=== PATIENT | male | born 1965 ===

== ENCOUNTER 2020-02-22 08:56 | Outpatient (REF) | payer MEDICAID, SELFPAY ==
--- NOTE | 2020-02-22 08:58 | CT_ITS ---
EXAMINATION: CT CHEST WITHOUT CONTRAST CLINICAL INFORMATION: Abnormal chest findings. COMPARISON: CT chest 08/22/2018 TECHNIQUE: Multidetector volumetric CT imaging of the chest was done. Axial MIP volume rendering provided. Sagittal and coronal reformatted images were obtained. This CT examination was performed using dose optimization techniques as appropriate, variously including the following: *Automated exposure control *Adjustment of mA and/or kV according to patient size (this includes techniques or standardized protocols for targeted exams where dose is matched to indication/reason for exam; i.e. extremities or head) *Use of iterative reconstruction technique DLP: 1005 mGy-cm FINDINGS: FABRIC STRETCHER: Well-inflated lungs are clear. LUNGS: There is paraseptal and minimal centrilobular emphysema. There is mild peripheral reticulation and minimal anterior lobular septal thickening in both upper and lower lobes. These findings also prominent along the right major fissure in the right upper lobe. No consolidation or airspace disease seen. A 1 mm calcified nodule right upper lobe axial image 33/21, 2 mm intrafissural lymph node axial image 26/15, 2 mm subpleural nodule right lower lobe image 218/17, 4 mm nodule right lower lobe axial image 257/17, 2 mm nodule along the right major fissure in the subpleural location axial image 213/17. Minimal bronchial wall thickening without bronchiectasis consistent with small airway disease is noted. MEDIASTINUM: The thyroid lobes are symmetrical and normal. The central trachea and bronchi are widely patent. There are reactionary lymph nodes in the mediastinum, the largest pretracheal lymph node measuring 9 mm on axial image 21/8. PLEURA: There is no pleural effusion. No pleural mass or thickening. AXILLA: There are small shotty bilateral axillary lymph nodes. UPPER ABDOMEN: Visualized liver, spleen, gallbladder, pancreas, and adrenal glands are unremarkable. OSSEOUS STRUCTURES: No lytic or sclerotic process seen. CT/CT chest wo con IMPRESSION: Mild paraseptal and minimal centrilobular emphysema. Small pulmonary nodules are stable. No new pulmonary nodules visualized. Shotty bilateral mediastinal lymph nodes are stable.
--- NOTE | 2020-02-22 09:00 | CT_ITS ---
EXAMINATION: CT HEAD WITHOUT CONTRAST CLINICAL INFORMATION: Hallucinations COMPARISON: None TECHNIQUE: Contiguous axial imaging was performed from the skull base to vertex without intravenous administration of contrast. This CT examination was performed using dose optimization techniques as appropriate, variously including the following: *Automated exposure control *Adjustment of mA and/or kV according to patient size (this includes techniques or standardized protocols for targeted exams where dose is matched to indication/reason for exam; i.e. extremities or head) *Use of iterative reconstruction technique DLP: 1005 mGy-cm FINDINGS: There is no evidence of acute intracranial hemorrhage or territorial infarction. No abnormal mass effect or midline shift is seen. Farrell to white matter differentiation is well preserved. No extra-axial fluid collections are identified. The ventricles are normal in size. There is no abnormal attenuation within the brain parenchyma. The osseous structures and soft tissues are normal. The mastoid air cells and visualized portions of the paranasal sinuses are well aerated. CT/CT head/brain wo con IMPRESSION: No acute intracranial process seen.
== END 2020-02-22 08:57 | disposition home or self-care (01) ==
LOC: HO.CT 08:56
PROVIDERS: PCP Family Medicine; Visit Provider Family Medicine
DX: R44.2 Other hallucinations (principal)
CPT/HCPCS: 70450; 71250

== ENCOUNTER 2020-04-07 09:40 | Outpatient (REF) | payer MEDICAID, SELFPAY ==
--- NOTE | 2020-04-07 09:44 | EMG_ITS ---
Right tibial and peroneal motor studies were performed. Right superficial peroneal and sural sensory studies were performed. Tibial H-reflex was obtained. Paraspinal muscles were tested. IMPRESSION: This study revealed mild right superficial peroneal sensory neuropathy, but no evidence of generalized peripheral neuropathy or radiculopathy. MD PAXTON Marie/OSCAR / [id number]
== END 2020-04-07 09:41 | disposition home or self-care (01) ==
LOC: HO.NEURO 09:40
PROVIDERS: Visit Provider Family Medicine
DX: R20.2 Paresthesia of skin (principal)
CPT/HCPCS: 95886; 95909

== ENCOUNTER 2020-06-08 14:02 | Emergency (ER) | payer MEDICAID, SELFPAY ==
[2020-06-08 14:59] VITALS: BP 134/88; PULSE 78; RESP 18; TEMP 36.7; O2SAT 97; BMI 32.8
== END 2020-06-08 20:56 | disposition left against medical advice (07) ==
PROVIDERS: Emergency Provider Emergency Medicine; PCP Family Medicine
DX: R10.9 Unspecified abdominal pain (principal); F11.10 Opioid abuse, uncomplicated
CPT/HCPCS: 99282

== ENCOUNTER 2020-07-11 11:48 | Outpatient (RCR) | payer MEDICAID, SELFPAY | END 2020-07-25 17:47 | disposition other institution (70) | LOC: HO.PT 11:48 | PROVIDERS: PCP Family Medicine; Visit Provider Family Medicine | DX: G47.30 Sleep apnea, unspecified (principal) | CPT/HCPCS: 97110; 97162 ==

== ENCOUNTER 2020-08-09 11:44 | Emergency (ER) | payer MEDICAID, SELFPAY ==
--- NOTE | ~2020-08-09 | CT_ITS ---
EXAMINATION: CT ABDOMEN AND PELVIS WITH CONTRAST CLINICAL INFORMATION: Right lower quadrant pain. Evaluate for appendicitis. COMPARISON: None TECHNIQUE: Multidetector volumetric images were obtained from the superior aspect of the liver through the pubic symphysis following administration 85 mL of Omnipaque 350 intravenous contrast. Sagittal and coronal reformatted images were obtained on the technologist's workstation. Oral contrast: No This CT examination was performed using dose optimization techniques as appropriate, variously including the following: *Automated exposure control *Adjustment of mA and/or kV according to patient size (this includes techniques or standardized protocols for targeted exams where dose is matched to indication/reason for exam; i.e. extremities or head) *Use of iterative reconstruction technique DLP: 677 mGy-cm FINDINGS: LUNG BASES: The lung bases are clear. The heart size is normal. LIVER, GALLBLADDER, AND BILIARY TREE: The liver is normal in size, shape, and attenuation. No focal hepatic lesion. There is mild intrahepatic ductal dilation. CBD measures 1.23 cm with no radiopaque calculi or obstructive etiology seen.. The gallbladder is unremarkable with no evidence of radiopaque gallstones, gallbladder wall thickening, or obvious pericholecystic inflammatory changes. PANCREAS: Unremarkable. SPLEEN: Unremarkable. ADRENAL GLANDS: Unremarkable. KIDNEYS AND URETERS: The kidneys are normal in size, shape, and attenuation. No hydronephrosis, hydroureter, or calculi seen. No perinephric stranding. BLADDER: Unremarkable. GASTROINTESTINAL TRACT: There is scattered colonic diverticulosis with diffuse mural thickening involving the sigmoid colon and mild pericolic fat stranding suggestive of diverticulitis. No air-fluid collection or free air seen to suspect any abscess or perforation respectively. There is scattered stool in the right colon. No colonic distention seen. The small bowel loops are normal caliber. Appendix is not seen with certainty the stomach is nondistended and appears unremarkable. ABDOMINAL WALL: No significant hernia is appreciated. LYMPH NODES: Normal. VASCULAR: Unremarkable. PELVIC VISCERA: Unremarkable. OSSEOUS STRUCTURES: There are degenerative disc changes with vacuum disc phenomena and spondylosis throughout the lower dorsal and entire lumbar spine. No fracture or lytic process seen CT/CT abdomen pelvis w con IMPRESSION: Scattered colonic diverticulosis with sigmoid diverticulitis. Mild constipation. Appendix is not visualized. Mild intrahepatic ductal dilatation with mildly prominent CBD. No obstructive etiology seen.
[2020-08-09 11:56] VITALS: BP 144/81; PULSE 96; RESP 16; TEMP 36.6; O2SAT 95; BMI 32.8
--- NOTE | 2020-08-09 13:06 | ED_ITS ---
HPI - Abdominal Pain General Chief Complaint: Abdominal Pain Stated Complaint: Abd pain Time Seen by Provider: 08/09/20 12:54 Source: patient Mode of arrival: ambulatory Limitations: no limitations History of Present Illness HPI narrative: 54 y/o male with history of substance abuse on Suboxone for many years, depression and insomnia who presents to the ER with RLQ pain that started yesterday. He states he has had intermittent abdominal pain in his right abdomen on/off for years but the pain today is different. It is about a 6/10 and is sharp and constant. He denied fever, chills, N/V/D. Last BM was this morning and it was difficult. He reports chronic issues with constipation. No blood in his stool. No dietary changes. MD elicited complaint: abdominal pain Pertinent past history: none Onset (ago): day(s) (1) Pain Consistency: constant Location: RLQ Severity: moderate Pain scale (0-10): 6 Quality: stabbing Radiation: none Migration to: no migration Exacerbating factors: nothing Relieving factors: nothing Associated symptoms: constipation Related Data Previous Rx's Medication Instructions Recorded ciprofloxacin HCl 500 mg PO BID #14 tab 08/09/20 ibuprofen 600 mg PO Q8H PRN #15 tab 08/09/20 metronidazole [Flagyl] 500 mg PO BID #14 tab 08/09/20 Allergies Allergy/AdvReac Type Severity Reaction Status Date / Time No Known Allergies Allergy Verified 08/09/20 11:56 [No Known Allergies*] Review of Systems Review of Systems Constitutional: No Fever, No Chills ENT/Mouth: No sore throat, No Rhinorrhea, No Swallowing Difficulty Cardiovascular: No Chest Pain, No SOB, No Orthopnea, No Edema Respiratory: No Cough, No Sputum, No Wheezing, No dyspnea Gastrointestinal: No Nausea, No Vomiting, No Diarrhea, + abdominal Pain, No Hematochezia, No Melena Genitourinary: No Dysuria, No Urinary Frequency, No Hematuria Musculoskeletal: No joint pain, No Myalgias Skin: No Skin Lesions, No rash Neuro: No Weakness, No Numbness, No Dizziness, No Headache Heme/Lymph: No Bruising, No Lymphadenopathy Endocrine: No Polyuria, No Polydipsia Physical Exam Vital Signs: Vital Signs: Last Vital Signs Temp 97.9 F 08/09/20 11:56 Pulse 84 08/09/20 14:00 Resp 16 08/09/20 14:00 BP 102/64 08/09/20 14:00 Pulse Ox 97 08/09/20 14:00 Body Mass Index 32.8 Appearance: Alert. Oriented X3. No acute distress. Eyes: Pupils equal, round and reactive to light. ENT: Pharynx normal. Neck: Normal inspection. Neck supple. CVS: Normal heart rate and rhythm. Pulses normal. Respiratory: No respiratory distress. Breath sounds normal. Abdomen: Somewhat firm with guarding, RLQ tenderness to deep palpation, no rebound. +BS x4 Skin: Skin warm and dry. Normal skin color. Normal skin turgor. No rashes. Extremities: No lower extremity edema. Neuro: Oriented X 3. No motor deficit. No sensory deficit. Course Course Course Narrative: 54 y/o male presenting with RLQ pain x1 day. Will get lab workup and CT scan to r/o appendicitis. Reevaluation(s) Reevaluation #1: Labs showing mild hyperkalemia 5.4 and sodium 134. NS ordered. CT scan complete. Patient's pain is ok 4/10. Declining medications. Reevaluation #2: CT showing sigmoid diverticulitis without abscess. No leukocytosis. Patient is tolerating PO. Results were d/w the patient. Will treat with PO antibiotics, NSAIDS and have him f/u with GI and his PCP. He agrees [facility] plan and is stable for discharge home. Instructed to come back to the ER if pain worsens or if he develops severe N/V/D. MDM - Abdominal Pain Lab Data Result diagrams: 08/09/20 13:18 08/09/20 13:18 Labs: Lab Results 08/09/20 08/09/20 08/09/20 Range/Units 13:18 13:18 13:18 WBC 10.0 (4.8-10.8) X10*3/uL RBC 4.98 (4.60-5.80) X10*6/uL Hgb 14.5 (14.0-18.0) g/dl Hct 43.1 (42-52) % MCV 86.5 (80-98) fL MCH 29.1 (27.0-33.0) pg MCHC 33.6 (31.0-36.0) g/dl RDW 12.0 (11.0-16.0) % Plt Count 308 (160-400) X10*3/uL MPV 9.5 (9.4-12.4) fL Immature Gran % (Auto) 0.2 (0.0-0.4) % Neut % (Auto) 74.1 H (45-73) % Lymph % (Auto) 20.0 (20-40) % [place] % (Auto) 4.5 (2-11) % Eos % (Auto) 0.8 (0-4) % Baso % (Auto) 0.4 (0-2) % Lymph # (Auto) 2.0 (1.2-4.9) X10*3/uL [place] # (Auto) 0.5 (0.1-1.2) X10*3/uL Eos # (Auto) 0.1 (0.0-0.4) X10*3/uL Baso # (Auto) 0.0 (0.0-0.2) X10*3/uL Abs Immat Gran (auto) 0.02 (0.00-0.03) X10*3/uL Absolute Neuts (auto) 7.4 (2.0-8.3) X10*3/uL Absolute Nucleated RBC 0.000 (0.0-0.012) X10*3/uL Nucleated RBC % (auto) 0.0 (0.0-0.2) /100WBC Hold Blue Top SEE NOTE Sodium 134 L (135-145) mmol/L Potassium 5.4 H (3.3-5.1) mmol/L Chloride 102 (96-108) mmol/L Carbon Dioxide 24 (22-29) mmol/L Anion Gap 13 (12-20) BUN 12 (9-16) mg/dL Creatinine 0.76 (0.5-1.4) mg/dL Estim Creat Clear Calc 122.2 Estimated GFR > 60 Random Glucose 110 (60-115) mg/dL Calcium 9.1 (8.4-10.2) mg/dL Total Bilirubin 0.4 (0.0-1.0) mg/dL AST 27 (5-37) U/L ALT 18 (0-40) U/L Alkaline Phosphatase 93 (39-117) U/L Total Protein 7.8 (6.5-8.0) g/dL Albumin 3.9 (3.5-5.0) g/dL Urine Color Urine Appearance Urine pH (5.0-8.0) Ur Specific [place] (1.005-1.025) Urine Protein (NEG-TRACE) MG/DL Urine Glucose (UA) (NEG) MG/DL Urine Ketones (NEG) MG/DL Urine Blood (NEG) Urine Nitrite (NEG) Ur Leukocyte Esterase (NEG) Urine RBC (0) /HPF Urine WBC (0-4) /HPF Ur Squamous Epith Cells /LPF Urine Bacteria /LPF Urine Mucus /LPF 08/09/20 Range/Units 14:13 WBC (4.8-10.8) X10*3/uL RBC (4.60-5.80) X10*6/uL Hgb (14.0-18.0) g/dl Hct (42-52) % MCV (80-98) fL MCH (27.0-33.0) pg MCHC (31.0-36.0) g/dl RDW (11.0-16.0) % Plt Count (160-400) X10*3/uL MPV (9.4-12.4) fL Immature Gran % (Auto) (0.0-0.4) % Neut % (Auto) (45-73) % Lymph % (Auto) (20-40) % [place] % (Auto) (2-11) % Eos % (Auto) (0-4) % Baso % (Auto) (0-2) % Lymph # (Auto) (1.2-4.9) X10*3/uL [place] # (Auto) (0.1-1.2) X10*3/uL Eos # (Auto) (0.0-0.4) X10*3/uL Baso # (Auto) (0.0-0.2) X10*3/uL Abs Immat Gran (auto) (0.00-0.03) X10*3/uL Absolute Neuts (auto) (2.0-8.3) X10*3/uL Absolute Nucleated RBC (0.0-0.012) X10*3/uL Nucleated RBC % (auto) (0.0-0.2) /100WBC Hold Blue Top Sodium (135-145) mmol/L Potassium (3.3-5.1) mmol/L Chloride (96-108) mmol/L Carbon Dioxide (22-29) mmol/L Anion Gap (12-20) BUN (9-16) mg/dL Creatinine (0.5-1.4) mg/dL Estim Creat Clear Calc Estimated GFR Random Glucose (60-115) mg/dL Calcium (8.4-10.2) mg/dL Total Bilirubin (0.0-1.0) mg/dL AST (5-37) U/L ALT (0-40) U/L Alkaline Phosphatase (39-117) U/L Total Protein (6.5-8.0) g/dL Albumin (3.5-5.0) g/dL Urine Color YELLOW Urine Appearance CLEAR Urine pH 6.0 (5.0-8.0) Ur Specific [place] 1.015 (1.005-1.025) Urine Protein NEG (NEG-TRACE) MG/DL Urine Glucose (UA) NEG (NEG) MG/DL Urine Ketones NEG (NEG) MG/DL Urine Blood TRACE (NEG) Urine Nitrite NEG (NEG) Ur Leukocyte Esterase NEG (NEG) Urine RBC 1-4 (0) /HPF Urine WBC 0 (0-4) /HPF Ur Squamous Epith Cells NONE /LPF Urine Bacteria NONE /LPF Urine Mucus TRACE /LPF Discharge Plan Discharge Clinical Impression: Diverticulitis Patient Disposition: Home, Self-Care Instructions: Diverticulitis (ED), Diverticulitis Diet (ED) Additional Instructions: Take the prescribed antibiotics for infection in your colon. Recommend following up with GI doctor and your Primary Care doctor. If you have worsening pain, profuse vomiting or diarrhea come back to the ER right away for further evaluation. Prescriptions: New ciprofloxacin HCl 500 mg tablet 500 mg PO BID Qty: 14 RF: 0 metronidazole [Flagyl] 500 mg tablet 500 mg PO BID Qty: 14 RF: 0 ibuprofen 600 mg tablet 600 mg PO Q8H PRN (Reason: pain) Qty: 15 RF: 0 Referrals: Victor Manuel Galvez MD [Physician] - 2 weeks (diverticulitis) [facility] Past Medical History Attestation statement: The following information was validated with the patient. Medical History Anxiety Opiate abuse, continuous Social History Social History Alcohol intake: never Patient Tobacco Use Status: Never used Tobacco Use of substances other than those prescribed or required for medical reasons: No Advance Directives: No Advance Directives Information Provided: No
[2020-08-09 13:26] LABS: MANUAL DIFF FLAG NO
[2020-08-09 13:30] LABS: Basophils Percent Auto 0.4 % (0-2); Eosinophils Absolute Auto 0.1 X10*3/uL (0.0-0.4); Eosinophils Percent Auto 0.8 % (0-4); Hematocrit 43.1 % (42-52); Hemoglobin 14.5 g/dl (14.0-18.0); Imm Gran Abs Auto 0.02 X10*3/uL (0.00-0.03); Imm Gran Pct Auto 0.2 % (0.0-0.4); Mean Corpuscular HGB Conc 33.6 g/dl (31.0-36.0); Mean Corpuscular Hemoglobin 29.1 pg (27.0-33.0); Mean Corpuscular Volume 86.5 fL (80-98); Mean Platelet Volume 9.5 fL (9.4-12.4); Monocytes Absolute Auto 0.5 X10*3/uL (0.1-1.2); Monocytes Percent Auto 4.5 % (2-11); Neutrophils Absolute Auto 7.4 X10*3/uL (2.0-8.3); Neutrophils Percent Auto 74.1 % (45-73); Platelet Count 308 X10*3/uL (160-400); Red Blood Count 4.98 X10*6/uL (4.60-5.80)
[2020-08-09 14:00] VITALS: BP 102/64; PULSE 84; RESP 16; O2SAT 97
[2020-08-09 14:01] LABS: Alanine Aminotransferase 18 U/L (0-40); Albumin Level 3.9 g/dL (3.5-5.0); Alkaline Phosphatase 93 U/L (39-117); Anion Gap 13 (12-20); Aspartate Amino Transferase 27 U/L (5-37); Bilirubin Total 0.4 mg/dL (0.0-1.0); Blood Urea Nitrogen 12 mg/dL (9-16); Calcium 9.1 mg/dL (8.4-10.2); Carbon Dioxide 24 mmol/L (22-29); Chloride 102 mmol/L (96-108); Creatinine Clr Calc Pharmacy 122.2; Estimated Glomerular Filt Rate > 60; Glucose Random 110 mg/dL (60-115); Potassium 5.4 mmol/L (3.3-5.1); Sodium 134 mmol/L (135-145); Total Protein 7.8 g/dL (6.5-8.0)
[2020-08-09 14:19] LABS: Glucose Urine UA NEG (NEG); Leukocyte Esterase Urine NEG (NEG); Nitrite Urine NEG (NEG); Specific Gravity - Urine 1.015 (1.005-1.025); Urine Blood TRACE (NEG); Urine Ketones NEG (NEG); Urine Protein NEG (NEG-TRACE)
[2020-08-09 14:20] LABS: Appearance Urine CLEAR; Color Urine YELLOW
[2020-08-09] MEDS: 0.9 % Sodium Chloride 1,000 ML 999 ML IVCONT (14:34)
[2020-08-09 14:35] LABS: Mucus Urine TRACE /LPF; WBC Urine 0 /HPF (0-4)
[2020-08-09] MEDS: iohexoL 350 MG/ML 100 ML INFUS..BTL IV (14:44)
== END 2020-08-09 15:43 | disposition home or self-care (01) ==
PROVIDERS: Emergency Provider Emergency Medicine; PCP Family Medicine
DX: K57.32 Diverticulitis of large intestine without perforation or abscess without bleeding (principal); K59.00 Constipation, unspecified; R10.9 Unspecified abdominal pain; F33.1 Major depressive disorder, recurrent, moderate; Z79.899 Other long term (current) drug therapy
CPT/HCPCS: 36415; 74177; 80053; 81001; 85025; 99285; Q9967

== ENCOUNTER 2020-10-20 08:27 | Outpatient (REF) | payer MEDICAID, SELFPAY ==
--- NOTE | ~2020-10-20 | US_ITS ---
EXAMINATION: US ABDOMEN COMPLETE CLINICAL INFORMATION: Fatty liver. COMPARISON: CT abdomen and pelvis with contrast dated 08/09/2020 TECHNIQUE: Real-time imaging of the abdominal viscera. FINDINGS: PANCREAS: The head and the body of the pancreas appear homogeneous in echotexture. The tail is not visualized. The pancreatic duct is mildly prominent measuring 0.5 cm. ABDOMINAL AORTA: The proximal, mid, and distal segments are normal in caliber. INFERIOR VENA CAVA: Visualized portions are normal. LIVER: The liver is normal in size. The liver contour is normal. There is increased liver echogenicity. There is a focal area of fatty sparing posterior to the gallbladder. No focal hepatic lesion. There is no intrahepatic biliary duct dilatation seen. GALLBLADDER: Normal. The gallbladder is physiologically distended without evidence of stones, sludge, polyps, wall thickening, or pericholecystic fluid. COMMON BILE DUCT: Normal in caliber measuring 1.0 cm in diameter. RIGHT KIDNEY: Normal. No hydronephrosis. No renal calculi or focal parenchymal lesions. The kidney measures 11.4 cm in maximum dimension. LEFT KIDNEY: The left kidney is slightly lobulated laterally. No hydronephrosis. No renal calculi or focal parenchymal lesions. The kidney measures 12.1 cm in maximum dimension. SPLEEN: Normal. The spleen measures 10.4 cm in maximum dimension. FREE FLUID: None. US/US abdomen complete IMPRESSION: Hepatic steatosis with focal fatty sparing posterior to the gallbladder. Mild prominence of pancreatic duct but visualized pancreas appears unremarkable. The tail is not visualized. The left kidney is lobulated laterally.
== END 2020-10-20 08:28 | disposition home or self-care (01) ==
LOC: HO.US 08:27
PROVIDERS: PCP Family Medicine; Visit Provider Family Medicine
DX: K76.0 Fatty (change of) liver, not elsewhere classified (principal)
CPT/HCPCS: 76700

== ENCOUNTER → 2020-12-20 14:31 | Outpatient (BNVA) | payer MEDICAID, SELFPAY | PROVIDERS: PCP Family Medicine; Visit Provider Internal Medicine | DX: J44.9 Chronic obstructive pulmonary disease, unspecified (principal); R59.0 Localized enlarged lymph nodes; F17.200 Nicotine dependence, unspecified, uncomplicated | CPT/HCPCS: 99202 ==

== ENCOUNTER → 2021-04-11 12:51 | Outpatient (BNVA) | payer MEDICAID, SELFPAY | PROVIDERS: PCP Family Medicine; Referring Provider Family Medicine; Visit Provider Surgery | DX: K83.8 Other specified diseases of biliary tract (principal); R10.11 Right upper quadrant pain | CPT/HCPCS: 99202 ==

== ENCOUNTER 2021-04-13 | Outpatient (REF) | payer MEDICAID, SELFPAY | END 2021-04-13 00:01 | LOC: CF | PROVIDERS: PCP Family Medicine; Visit Provider Surgery Vascular Surgery | DX: I83.11 Varicose veins of right lower extremity with inflammation (principal) | CPT/HCPCS: 99202 ==

== ENCOUNTER 2021-04-17 10:28 | Outpatient (REF) | payer MEDICAID, SELFPAY ==
--- NOTE | ~2021-04-17 | US_ITS ---
EXAMINATION: US LOWER EXTREMITY VENOUS (REFLUX EXAM), BILATERAL CLINICAL INDICATION: This is a 55-year-old male with venous insufficiency and varicose veins. COMPARISON: None. TECHNIQUE: Color flow triplex imaging and compression Doppler was performed to evaluate both the deep and the superficial systems bilaterally. To evaluate the superficial system, the examination was performed in the upright position. Color-flow Doppler ultrasound and compression ultrasound were utilized. In addition, maneuvers were utilized to demonstrate reflux. FINDINGS: 1. DEEP VENOUS ULTRASOUND OF THE RIGHT LOWER EXTREMITY: Common Femoral Vein: Compressible, normal respiratory variation and augmented flow. Femoral vein: Compressible, normal color flow and augmentation. Popliteal Vein: Compressible, normal augmentation. Deep Reflux: There is no evidence of reflux in the deep system in either the common femoral vein or the popliteal vein. There is no evidence of a Wagoner's cyst. 2. SUPERFICIAL ULTRASOUND WITH DOPPLER OF RIGHT LOWER EXTREMITY: GREAT SAPHENOUS VEIN: Saphenofemoral Junction: 0.8 cm Mid Thigh: 0.1 cm Above Knee: 0.1 cm Below Knee: 0.1 cm Mid Calf: 0.1 cm Ankle: 0.1 cm GSV REFLUX: No evidence of reflux. DUPLICATED GREAT SAPHENOUS VEIN: There is a 0.3 cm duplicated lateral great saphenous vein without reflux. SMALL SAPHENOUS VEIN: Proximal: 0.2 cm Distal: 0.1 cm SSV REFLUX: No evidence of reflux. VEIN OF GIACOMINI: None Imaged. PERFORATORS: There is a 0.1 cm brass cutter at the knee without reflux. VARICOSITIES: None Imaged 3. DEEP VENOUS ULTRASOUND OF THE LEFT LOWER EXTREMITY: Common Femoral Vein: Compressible, normal respiratory variation and augmented flow. Femoral Vein: Compressible, normal color flow and augmentation. Popliteal Vein: Compressible, normal augmentation. Deep Reflux: There is no evidence of reflux in the deep system in either the common femoral vein or the popliteal vein. There is no evidence of a Wagoner's cyst. 4. SUPERFICIAL ULTRASOUND WITH DOPPLER OF LEFT LOWER EXTREMITY: GREAT SAPHENOUS VEIN: Saphenofemoral Junction: 0.3 cm Mid Thigh: 0.1 cm Above Knee: 0.1 cm Below Knee: 0.1 cm Mid Calf: 0.1 cm Ankle: 0.1 cm GSV REFLUX: No evidence of reflux. DUPLICATED GREAT SAPHENOUS VEIN: There is a 0.2 cm duplicated lateral great saphenous vein without reflux. SMALL SAPHENOUS VEIN: Proximal: 0.1 cm Distal: 0.1 cm SSV REFLUX: No evidence of reflux. VEIN OF GIACOMINI: None Imaged. PERFORATORS: There is a 0.1 cm proximal calf brass cutter without reflux. VARICOSITIES: None Imaged US/US venous duplex LE BI IMPRESSION: 1. There are bilateral patent great saphenous veins and small saphenous veins without evidence of venous insufficiency or reflux. 2. No varicose veins are seen.
== END 2021-04-17 10:29 | disposition home or self-care (01) ==
LOC: HO.US 10:28
PROVIDERS: Visit Provider Surgery Vascular Surgery
DX: I83.11 Varicose veins of right lower extremity with inflammation (principal)
CPT/HCPCS: 93970

== ENCOUNTER → 2021-06-29 15:22 | Outpatient (BNVA) | payer MEDICAID, SELFPAY | PROVIDERS: PCP Family Medicine; Visit Provider Surgery Vascular Surgery | DX: I83.11 Varicose veins of right lower extremity with inflammation (principal) | CPT/HCPCS: 99212 ==

== ENCOUNTER 2021-10-02 09:30 | Outpatient (REF) | payer MEDICAID, SELFPAY ==
--- NOTE | ~2021-10-02 | CT_ITS ---
EXAMINATION: CT CHEST WITHOUT CONTRAST CT ABDOMEN WITHOUT AND WITH CONTRAST CLINICAL INFORMATION: Follow-up nodules. COMPARISON: CT abdomen and pelvis 10/20/2020. CT chest 02/22/2020. Ultrasound abdomen pelvis 10/27/2020. TECHNIQUE: 3 mm thin axial and reformatted sagittal and axial images of chest were obtained without contrast. Subsequently, 5 mm thin axial images of chest and abdomen were obtained without and with intravenous 85 mL Omnipaque 350. DLP 1393 mGy- This CT examination was performed using dose optimization technique as appropriate, variously including the following: Automated exposure control Adjustment of MA and/or KV according to patient size(this includes techniques or standardized protocols for targeted exams where dose is matched to indication/reason for exam; extremities or head. Use of iterative reconstruction techniques. FINDINGS: LUNGS: There is a centrilobular and preseptal emphysema with peripheral-based reticular interstitial thickening right upper lobe and right lower lobe. There are minimal changes in the left lower lobe as well. No acute consolidation seen. There is a 1 mm peripherally-based calcified nodule right upper lobe axial image 136/11, 2 mm intrafissural lymph node axial image 241/11, previously seen 4 nodule right lower lobe is not visualized. There is a peribronchial wall thickening in bilateral lower lobes. Mediastinum: The thyroid lobes are symmetric and normal. The central trachea and bronchi are widely patent. The heart size and great vessels are normal caliber. There are matted lymph nodes or soft tissue density in the precarinal and pretracheal space best visualized on coronal image 52/12. It is triangular shape measuring 3.5 x 2.9 cm in the coronal image 52/12 and is stable to previous study. Trace coronary artery calcification seen. Pleura: There is no pleural thickening, calcification or effusion. Axilla: There are shotty benign lymph nodes in bilateral axilla. The anterior chest wall is asymmetric with left slightly higher than the right but no focal chest wall lesion seen. Osseous structures: No lytic or sclerotic sclerotic changes seen. ABDOMEN AND PELVIS: Liver, ducts and gallbladder: Liver is homogeneous in density, normal size and contour. No focal lesion seen. There is mild intrahepatic ductal dilatation. The proximal CBD measures 1 cm and distal CBD measures 1.33 cm. The gallbladder is unremarkable with no radiopaque gallstones or wall thickening. Pancreas: The patient is unremarkable. The pancreatic duct measures 3 mm. Spleen: Unremarkable. Lymphovascular structures: The abdominal aorta is normal caliber. No abnormal size retroperitoneal or mesenteric lymph nodes seen. GI tract: There is scattered stool and gas seen in the visualized colon. The small bowel loops are normal. Abdominal wall: There is a small lacunar hernia containing fat. Adrenal glands: Bilateral adrenal glands are symmetrical and normal. Kidneys and ureters: There is symmetrical kidney nephrograms, which are normal size, shape and position. No radiopaque renal calculi or hydronephrosis seen. Osseous structures: There is a degenerative disc changes with vacuum disc phenomena and ventral spondylosis throughout lumbar spine. No lytic or sclerotic process seen. CT/CT abdomen wo/w con IMPRESSION: Centrilobular and paraseptal emphysema with scattered peripheral reticular interstitial changes and small pulmonary nodules are essentially stable. There is no new pulmonary nodules or mass seen. Dilated intrahepatic duct and dilated CBD with no intraluminal filling defect seen in the CBD. Minimal prominence of pancreatic duct measuring 3 mm. Visualized pancreas is unremarkable.
[2021-10-02 12:32] LABS: Anion Gap 11 (12-20); Blood Urea Nitrogen 13 mg/dL (9-16); Carbon Dioxide 28 mmol/L (22-29); Chloride 101 mmol/L (96-108); Estimated Glomerular Filt Rate > 60; Glucose Random 90 mg/dL (60-115); Potassium 4.6 mmol/L (3.3-5.1); Sodium 135 mmol/L (135-145)
[2021-10-02] MEDS: iohexoL 350 MG/ML 100 ML INFUS..BTL IV (14:07)
== END 2021-10-02 09:31 | disposition home or self-care (01) ==
LOC: HO.CT 09:30
PROVIDERS: PCP Family Medicine; Visit Provider Family Medicine
DX: R91.8 Other nonspecific abnormal finding of lung field (principal); Q45.3 Other congenital malformations of pancreas and pancreatic duct
CPT/HCPCS: 36415; 71260; 74170; 80048; Q9967

== ENCOUNTER 2021-10-26 13:00 | Outpatient (REF) | payer MEDICAID, SELFPAY ==
--- NOTE | ~2021-10-26 | US_ITS ---
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 COMPARISON: CT abdomen without and with contrast 10/02/2021. US abdomen complete 10/20/2020. TECHNIQUE: Real-time imaging of the kidneys. FINDINGS: RIGHT KIDNEY: 12.2 x 6.1 x 6.2 cm (SAG x AP x TRV). The kidney is normal in size and echogenicity. Renal cortical thickness is normal. No calculi or focal parenchymal lesions. No hydronephrosis. LEFT KIDNEY: 10.8 x 5.2 x 5.7 cm (SAG x AP x TRV). The kidney is normal in size and echogenicity. Renal cortical thickness is normal. No calculi or focal parenchymal lesions. No hydronephrosis. The liver appears echogenic. US/US renal BI IMPRESSION: Normal renal ultrasound.
== END 2021-10-26 13:01 | disposition home or self-care (01) ==
LOC: HO.US 13:00
PROVIDERS: Visit Provider Family Medicine
DX: Q63.1 Lobulated, fused and horseshoe kidney (principal)
CPT/HCPCS: 76775

== ENCOUNTER → 2021-10-30 10:44 | Outpatient (BNVA) | payer MEDICAID, SELFPAY | PROVIDERS: PCP Family Medicine; Visit Provider Internal Medicine | DX: J44.9 Chronic obstructive pulmonary disease, unspecified (principal); F17.210 Nicotine dependence, cigarettes, uncomplicated | CPT/HCPCS: 99212 ==

== ENCOUNTER 2022-01-06 13:20 | Emergency (ER) | payer MEDICAID, SELFPAY ==
--- NOTE | ~2022-01-06 | CT_ITS ---
EXAMINATION: CT HEAD WITHOUT CONTRAST CLINICAL INFORMATION: Headache COMPARISON: CT head 02/22/2020 TECHNIQUE: Contiguous axial imaging was performed from the skull base to vertex without intravenous administration of contrast. Coronal and sagittal reformatted images are performed at the CT scanner. [This CT examination was performed using dose optimization techniques as appropriate, variously including the following: *Automated exposure control *Adjustment of mA and/or kV according to patient size (this includes techniques or standardized protocols for targeted exams where dose is matched to indication/reason for exam; i.e. extremities or head) *Use of iterative reconstruction technique] DLP: 695 mGy-cm. FINDINGS: There is no evidence of acute intracranial hemorrhage or territorial infarction. No abnormal mass-effect or midline shift is seen. Farrell to white matter differentiation is well preserved. No extra-axial fluid collections are identified. The ventricles are normal in size. There is no abnormal attenuation within the brain parenchyma. There is no osseous abnormality. The mastoid air cells and visualized portions of the paranasal sinuses are well-aerated. CT/CT head/brain wo IV con IMPRESSION: No acute intracranial pathology.
[2022-01-06 13:22] VITALS: BP 111/69; PULSE 90; RESP 18; TEMP 36.6; O2SAT 99; BMI 32.1
--- NOTE | 2022-01-06 15:32 | ED.HA ---
HPI - Headache General Chief Complaint: Headache Stated Complaint: EXTREM HEADACHE FOR WEEK Time Seen by Provider: 01/06/22 15:16 Source: patient Mode of arrival: ambulatory Limitations: no limitations History of Present Illness HPI Narrative: 56 yo with a history of COPD who presents with left-sided headache for the last 5 days. + photophobia. No nausea, vomiting, dizziness. No neck pain, fevers or chills. Taking Tylenol with continued pain. Headache not changed by any position changes Related Data Home Medications Medication Instructions Recorded Confirmed albuterol sulfate 90 mcg/actuation 2 puff inhalation QID 12/20/20 10/30/21 aerosol inhaler (ProAir HFA) buprenorphine 8 mg-naloxone 2 mg 2 film sublingual DAILY 12/20/20 10/30/21 sublingual film (Suboxone) acetaminophen 650 mg 650 mg PO Q8H PRN fever 04/11/21 10/30/21 tablet,extended release (Arthritis Pain Relief (acetaminophen) ER) melatonin 5 mg tablet 10 mg PO BEDTIME PRN insomnia 04/11/21 10/30/21 sildenafil 50 mg tablet (Viagra) 50 mg PO DAILY PRN 04/11/21 10/30/21 valacyclovir 500 mg tablet 500 mg PO BID 04/11/21 10/30/21 cholecalciferol (vitamin D3) 50 50 mcg PO DAILY 10/30/21 10/30/21 mcg (2,000 unit) capsule fluticasone propionate 50 2 spray intranasal DAILY 10/30/21 10/30/21 mcg/actuation nasal spray,suspension loratadine 10 mg tablet 10 mg PO DAILY 10/30/21 10/30/21 Previous Rx's Medication Instructions Recorded ibuprofen 600 mg tablet 600 mg PO Q8H PRN pain #15 tabs 08/09/20 fluticasone 250 mcg-salmeterol 50 1 inh inhalation BID copd 30 days 10/30/21 mcg/dose blistr powdr for #60 ea inhalation (Advair Diskus) Allergies Allergy/AdvReac Type Severity Reaction Status Date / Time No Known Allergies Allergy Verified 10/30/21 12:09 [No Known Allergies*] Review of Systems Review of Systems: Yes all other systems are reviewed and are negative Constitutional: Constitutional: Reports no additional constitutional complaints, Denies body ache(s), Denies chills, Denies fever(s), Reports headache(s) and Denies weakness Eyes: Eyes: Reports no additional eye complaints, Denies change in vision and Reports photophobia ENT: Reports system reviewed and no additional complaints, except as documented, Denies dizziness, Reports headache(s), Denies nasal congestion, Denies nasal discharge and Denies neck pain Cardiovascular: Cardiovascular: Reports no additional cardiovascular complaints, Denies chest pain, Denies leg edema and Denies dyspnea Respiratory: Respiratory: Reports no additional respiratory complaints, Denies cough and Denies dyspnea Gastrointestinal: Gastrointestinal: Reports no additional gastrointestinal complaints, Denies abdominal pain, Denies diarrhea, Denies nausea and Denies vomiting Genitourinary: Genitourinary: Denies urinary incontinence Musculoskeletal: Musculoskeletal: Reports no additional musculoskeletal complaints, Denies back pain, Denies arthralgias, Denies joint swelling, Denies neck pain, Denies numbness and Denies tingling Integumentary/Breasts: Skin/Breast: Reports system reviewed and no additional complaints, except as docu and Denies rash Neurologic: Reports system reviewed and no additional complaints, except as documented, Denies Abnormal speech present, Denies dizziness, Reports headache(s), Denies numbness, Denies tingling and Denies weakness PMFSH Past Medical History Attestation statement: The following information was validated with the patient. Source: old records reviewed and nursing notes reviewed Medical History COPD (chronic obstructive pulmonary disease) Depression with anxiety History of heroin abuse Mediastinal adenopathy Personal history of nicotine dependence Smoker Surgical History History of colonoscopy (~2019) Social History Social History Alcohol intake: never Patient Tobacco Use Status: Current everyday Tobacco user Cigarettes Per Day: 20 Years Smoked: 42 Advance Directives: No Advance Directives Information Provided: Yes Physical Exam Vital Signs: Vital Signs: Last Vital Signs Temp 97.9 F 01/06/22 13:22 Pulse 90 01/06/22 13:22 Resp 18 01/06/22 13:22 BP 111/69 01/06/22 13:22 Pulse Ox 99 01/06/22 13:22 O2 Del Method 01/06/22 13:22 BMI result Body Mass Index 32.1 Const: General: cooperative, healthy appearing, comfortable and no acute distress Orientation/consciousness: patient oriented x3 Limitations: no limitations HEENT: Head: Yes normal to inspection Ears: hearing grossly normal bilaterally and TM's normal bilaterally General nose exam: Normal external nose present Face and sinus: Yes normal facial exam Mouth: Normal oral and palatal mucosa present Throat: Yes posterior oropharynx normal Eyes: General: appearance normal, both eyes and all related structures Pupils: Equal, round and reactive pupils present Direct Ophthalmoscopy: photophobia Neck: Neck: Yes normal visual inspection, Yes full ROM, Yes no lymphadenopathy and Yes no meningeal signs Chest: Chest palpation & inspection: normal inspection of the chest Resp: Effort & Inspection: normal respiratory effort Auscultation: clear to auscultation bilaterally Cardio: Rate: regular rate Rhythm: regular rhythm Peripheral pulses: Peripheral pulses 2+ throughout GI: Inspection: Yes normal to inspection Palpation (GI): Soft to palpation and nontender Auscultation: normal bowel sounds Back/Spine/Pelvis: Thoracic/Lumbar Spine: thoracic and lumbar spine normal to inspection Skin: General skin exam: no rashes or lesions noted Neuro: General: patient oriented x3, moves all extremities, no meningeal signs, no focal motor deficits and normal sensation to monofilament Cranial nerves: Yes CN's II-XII intact bilaterally, Yes Equal, round and reactive pupils present, Yes Bilaterally intact EOM present, Yes Nystagmus not present, Yes Normal facial strength present and Yes Midline tongue present Cognition (Neuro): normal cognition Speech: No Abnormal speech present Gait exam (Neuro): Normal gait present Motor exam (neuro): 5/5 motor strength present throughout Sensory Exam: Normal double simultaneous stimulation for sensation Extrem: General: Yes normal to inspection Course Course Course Narrative: Headache is resolved. CT scan is normal. Likely migraine. Plan for discharge home. Reviewed worrisome signs and symptoms of when to return to the emergency room. Comfortable plan for discharge home. MDM - Headache MDM Narrative Medical decision making narrative: 56-year-old male here with headache for 5 days despite supportive care Normal neuro exam No history of same Due to persistent headache will check CT head Will place IV and give fluids, Reglan, Benadryl, Toradol Considered migraine, subarachnoid hemorrhage, meningitis, pseudotumor cerebral -no fever, neck pain or neck stiffness to suggest meningitis -no worsening headache with position changes to suggest pseudotumor cerebri Medical Records Attestation: I reviewed the patient's medical records. Lab Data Attestation: I reviewed the patient's lab results. Labs: Lab Results 01/06/22 Range/Units 15:49 COVID-19 ([facility]) Negative (Negative) COVID-19 Clin Com See Note Imaging Data CT scan - head: Attestation: I personally reviewed and interpreted this imaging study as follows: Radiologist's impression: Close Head CT (Signed) Raman Hampton - 01/06/22 Launch?Image [address] [address] [address] Scan Report Signed Patient: Montana Rodrigues V MR#: [id number] : 1965 Acct:[id number] Age/Sex: 56 / M ADM Date: 01/06/22 Loc: HO.ED Attending Dr: Ordering Physician: Evelin Ramos NP Date of Service: 01/06/22 Procedure(s): CT head/brain wo IV con Accession Number(s): [id number] cc: Evelin Ramos NP~ EXAMINATION: CT HEAD WITHOUT CONTRAST CLINICAL INFORMATION: Headache COMPARISON: CT head 02/22/2020 TECHNIQUE: Contiguous axial imaging was performed from the skull base to vertex without intravenous administration of contrast. Coronal and sagittal reformatted images are performed at the CT scanner. [This CT examination was performed using dose optimization techniques as appropriate, variously including the following: *Automated exposure control *Adjustment of mA and/or kV according to patient size (this includes techniques or standardized protocols for targeted exams where dose is matched to indication/reason for exam; i.e. extremities or head) *Use of iterative reconstruction technique] DLP: 695 mGy-cm. FINDINGS: There is no evidence of acute intracranial hemorrhage or territorial infarction. No abnormal mass-effect or midline shift is seen. Farrell to white matter differentiation is well preserved. No extra-axial fluid collections are identified. The ventricles are normal in size. There is no abnormal attenuation within the brain parenchyma. There is no osseous abnormality. The mastoid air cells and visualized portions of the paranasal sinuses are well-aerated. ? CT/CT head/brain wo IV con IMPRESSION: No acute intracranial pathology. ? ? Discharge Plan Discharge Clinical Impression: Headache Patient Disposition: Home, Self-Care Additional Instructions: CT scan looks normal Make sure you are staying hydrated Make sure your getting plenty of rest Follow-up with her primary care Prescriptions: No Action ibuprofen 600 mg tablet 600 mg PO Q8H PRN (Reason: pain) Qty: 15 0RF buprenorphine-naloxone [Suboxone] 8-2 mg film 2 film sublingual DAILY Rx Instructions: place 1 strip/tab under (each) side of tongue albuterol sulfate [ProAir HFA] 90 mcg/actuation HFA aerosol inhaler 2 puff inhalation QID melatonin 5 mg tablet 10 mg PO BEDTIME PRN (Reason: insomnia) valacyclovir 500 mg tablet 500 mg PO BID acetaminophen [Arthritis Pain Relief (acetam)] 650 mg tablet extended release 650 mg PO Q8H PRN (Reason: fever) sildenafil [Viagra] 50 mg tablet 50 mg PO DAILY PRN cholecalciferol (vitamin D3) 50 mcg (2,000 unit) capsule 50 mcg PO DAILY fluticasone propionate 50 mcg/actuation spray,suspension 2 spray intranasal DAILY loratadine 10 mg tablet 10 mg PO DAILY fluticasone propion-salmeterol [Advair Diskus] 250-50 mcg/dose blister with device 1 inh inhalation BID 30 Days Qty: 60 4RF Referrals: Randa Godinez DO [Primary Care Provider] -
[2022-01-06] MEDS: Ketorolac Tromethamine 30 MG/ML VIAL IVPUSH (16:04)
[2022-01-06] MEDS: diphenhydrAMINE HCL 50 MG/ML VIAL 25 MG IVPUSH (16:04)
[2022-01-06] MEDS: Metoclopramide HCl 10 MG/2 ML VIAL IVPUSH (16:04)
[2022-01-06] MEDS: 0.9 % Sodium Chloride 1,000 ML 999 ML IV (16:05)
[2022-01-06 16:14] LABS: COVID-19 Test Negative (Negative)
== END 2022-01-06 17:29 | disposition home or self-care (01) ==
PROVIDERS: Nurse Practitioner Family; Emergency Provider Emergency Medicine; PCP Family Medicine
DX: R51.9 Headache, unspecified (principal); J44.9 Chronic obstructive pulmonary disease, unspecified; F17.210 Nicotine dependence, cigarettes, uncomplicated; Z20.822 Contact with and (suspected) exposure to COVID-19; Z71.6 Tobacco abuse counseling; Z79.899 Other long term (current) drug therapy
CPT/HCPCS: 70450; 87635; 96361; 96374; 96375; 99283; 99284; J1200; J1885; J2765

== ENCOUNTER → 2022-02-09 09:37 | Outpatient (BNVA) | payer MEDICAID, SELFPAY | PROVIDERS: PCP Family Medicine; Visit Provider Internal Medicine Gastroenterology | DX: K83.8 Other specified diseases of biliary tract (principal); R10.11 Right upper quadrant pain | CPT/HCPCS: 99202 ==

== ENCOUNTER 2022-02-16 12:23 | Outpatient (REF) | payer MEDICAID, SELFPAY ==
[2022-02-16 12:32] LABS: MANUAL DIFF FLAG NO
[2022-02-16 13:14] LABS: Basophils Percent Auto 0.5 % (0-2); Eosinophils Absolute Auto 0.2 X10*3/uL (0.0-0.4); Eosinophils Percent Auto 2.8 % (0-4); Hematocrit 43.7 % (42.0-52.0); Imm Gran Abs Auto 0.02 X10*3/uL (0.00-0.03); Imm Gran Pct Auto 0.3 % (0.0-0.4); Lymphocytes Percent Auto 37.7 % (20-40); Mean Corpuscular HGB Conc 34.3 g/dl (31.0-36.0); Mean Corpuscular Hemoglobin 29.3 pg (27.0-33.0); Mean Corpuscular Volume 85.4 fL (80.0-98.0); Mean Platelet Volume 9.5 fL (9.4-12.4); Monocytes Absolute Auto 0.6 X10*3/uL (0.1-1.2); Monocytes Percent Auto 7.5 % (2-11); Neutrophils Percent Auto 51.2 % (45-73); Platelet Count 286 X10*3/uL (160-400); Red Blood Count 5.12 X10*6/uL (4.60-5.80); Red Cell Distribution Width 11.9 % (11.0-16.0); White Blood Count 7.9 X10*3/uL (4.8-10.8)
[2022-02-16 14:28] LABS: Alanine Aminotransferase 24 U/L (0-40); Albumin Level 4.3 g/dL (3.5-5.0); Alkaline Phosphatase 79 U/L (39-117); Anion Gap 10 (12-20); Aspartate Amino Transferase 31 U/L (5-37); Bilirubin Total 0.6 mg/dL (0.0-1.0); Blood Urea Nitrogen 11 mg/dL (9-16); Calcium 9.3 mg/dL (8.4-10.2); Carbon Dioxide 31 mmol/L (22-29); Chloride 101 mmol/L (96-108); Estimated Glomerular Filt Rate > 60; Glucose Random 92 mg/dL (60-115); Potassium 4.7 mmol/L (3.3-5.1); Sodium 137 mmol/L (135-145); Total Protein 7.7 g/dL (6.5-8.0)
[2022-02-19 12:08] LABS: Carbohydrate Antigen 19-9 7 U/mL (<34)
== END 2022-02-16 12:24 | disposition home or self-care (01) ==
LOC: HO.LAB 12:23
PROVIDERS: PCP Family Medicine; Visit Provider Internal Medicine Gastroenterology
DX: R10.11 Right upper quadrant pain (principal); K75.81 Nonalcoholic steatohepatitis (NASH); K83.8 Other specified diseases of biliary tract
CPT/HCPCS: 36415; 80053; 85025; 86301

== ENCOUNTER 2022-03-02 08:26 | Outpatient (REF) | payer MEDICAID, SELFPAY ==
--- NOTE | ~2022-03-02 | MR_ITS ---
EXAMINATION: MR ABDOMEN WITHOUT CONTRAST CLINICAL INFORMATION: Abdominal pain. Other specified diseases of biliary tract COMPARISON: Previous CT of the abdomen and September 2021 and abdominal ultrasound October 2020 TECHNIQUE: MR abdomen is performed without gadolinium contrast. MRCP sequences were also performed. FINDINGS: LUNG BASES: The visualized lung bases are unremarkable. LIVER, GALLBLADDER, AND BILIARY TREE: The liver is normal in size and contour. There is signal loss in the liver on out of phase sequences suggestive of fatty infiltration. There is a small subcentimeter probable cyst high in the dome of the liver. No other focal liver lesion. There is mild intra and extrahepatic biliary duct dilatation. The common bile duct measures 1 cm. This is similar to previous CT scan and ultrasound. The gallbladder is upper normal in size. No gallstones are seen. The gallbladder wall is normal. PANCREAS: Unremarkable. SPLEEN: Unremarkable. ADRENAL GLANDS: Unremarkable. KIDNEYS AND URETERS: The kidneys are normal in size and shape. No hydronephrosis. No perinephric stranding. GASTROINTESTINAL TRACT: No bowel obstruction. No ascites or fluid collection. ABDOMINAL WALL: Small umbilical hernia containing fat. LYMPH NODES: No lymphadenopathy. VASCULAR: Unremarkable. OSSEOUS STRUCTURES: Marrow signal normal. Scoliosis and degenerative changes of the spine. MR/MR abdomen wo con IMPRESSION: Mild intra and extrahepatic biliary duct dilatation. Common bile duct measures 1 cm. This is similar to previous exams. No common bile duct stone seen. Upper normal-size gallbladder. No gallstones. Fatty infiltration of the liver and probable small liver cyst.
== END 2022-03-02 08:27 | disposition home or self-care (01) ==
LOC: HO.MRI 08:26
PROVIDERS: Visit Provider Internal Medicine Gastroenterology
DX: R10.11 Right upper quadrant pain (principal); K83.8 Other specified diseases of biliary tract
CPT/HCPCS: 74181

== ENCOUNTER → 2022-06-05 14:11 | Outpatient (BNVA) | payer MEDICAID, SELFPAY | PROVIDERS: PCP Family Medicine; Visit Provider Internal Medicine | DX: J44.9 Chronic obstructive pulmonary disease, unspecified (principal); R59.0 Localized enlarged lymph nodes; F17.210 Nicotine dependence, cigarettes, uncomplicated | CPT/HCPCS: 99212 ==

== ENCOUNTER 2022-08-10 09:16 | Outpatient (REF) | payer MEDICAID, SELFPAY ==
--- NOTE | ~2022-08-10 | US_ITS ---
EXAMINATION: US ABDOMEN COMPLETE CLINICAL INFORMATION: Fatty liver. COMPARISON: MRI abdomen 03/02/2022. Renal ultrasound 10/26/2021. CT abdomen 10/02/2021. Ultrasound abdomen complete 10/20/2020. TECHNIQUE: Real-time imaging of the abdominal viscera. Technically limited study secondary to bowel gas, body habitus and patient is not fasting. FINDINGS: PANCREAS: Limited. The visualized pancreatic head and body are normal in appearance. The remainder of the pancreas is obscured from visualization by the overlying bowel gas. ABDOMINAL AORTA: The proximal, mid, and distal segments are normal in caliber. INFERIOR VENA CAVA: Visualized portions are normal. LIVER: The liver is normal in size. The liver contour is normal. There is diffuse increased liver parenchymal echogenicity. No focal hepatic lesion. There is mild intrahepatic biliary ductal dilatation. GALLBLADDER: Normal. The gallbladder is physiologically distended without evidence of stones, sludge, polyps, wall thickening or pericholecystic fluid. COMMON BILE DUCT: Normal in caliber measuring 1.2 cm in diameter. RIGHT KIDNEY: Normal. No hydronephrosis. No renal calculi or focal parenchymal lesions. The kidney measures 12.0 cm in maximum dimension. LEFT KIDNEY: Normal. No hydronephrosis. No renal calculi or focal parenchymal lesions. The kidney measures 12.2 cm in maximum dimension. SPLEEN: Normal. The spleen measures 10.4 cm in maximum dimension. FREE FLUID: None. US/US abdomen complete IMPRESSION: 1. There is intra and extrahepatic biliary ductal dilatation. No pancreatic head mass or choledocholithiasis is noted. Consider further evaluation with CT or MRI/MRCP. 2. There is generalized increase in hepatic echotexture, consistent with fatty infiltration or hepatocellular disease. Please correlate clinically. No focal hepatic mass or intrahepatic biliary dilatation is seen. 3. Technically limited ultrasound examination of the pancreatic tail.
== END 2022-08-10 09:17 | disposition home or self-care (01) ==
LOC: HO.US 09:16
PROVIDERS: PCP Family Medicine; Visit Provider Family Medicine
DX: K76.0 Fatty (change of) liver, not elsewhere classified (principal)
CPT/HCPCS: 76700

== ENCOUNTER 2022-09-29 13:04 | Emergency (ER) | payer MEDICAID, SELFPAY ==
--- NOTE | ~2022-09-29 | XR_ITS ---
EXAMINATION: XR LUMBOSACRAL SPINE CLINICAL INFORMATION: Lumbar pain radiating to right leg. COMPARISON: None available. TECHNIQUE: Three views of the lumbosacral spine. FINDINGS: Dextroconvex scoliosis. The sagittal alignment is maintained. Vertebral body heights are maintained. No acute vertebral compression deformities are identified. Multilevel moderate-severity disc degenerative changes, with disc height loss, endplate osteophytes, sclerosis. Multilevel facet degeneration. SI joints are intact. No abnormal soft tissue calcification. XR/XR lumbar spine 2-3V IMPRESSION: Moderate-severe severe lumbar spondylosis. Dextroconvex scoliosis. No radiographic evidence of acute fracture.
--- NOTE | 2022-09-29 13:16 | ED.BACK ---
HPI - Back Pain/Injury General Chief Complaint: Back Pain/Injury Stated Complaint: lower back pain Time Seen by Provider: 09/29/22 13:42 Source: patient Mode of arrival: ambulatory Limitations: no limitations History of Present Illness HPI Narrative: Patient is a 56-year-old male with history of COPD, on Suboxone for the past 9 years presenting to the emergency department with complaint lower back pain for the past year, has worsened and beyond to radiate to the right over the past 3 days. He reports intermittent radiation down right leg with associated numbness and tingling. Denies current radiation to right leg or numbness/tingling to right leg. Denies difficulty with ambulating. Denies fevers. Denies bowel or bladder incontinence, saddle anesthesia. Denies any urinary retention or difficulty urinating. Denies any IV drug use. States he has been taking baclofen for his discomfort. Denies recent injury or trauma. Denies any recent imaging. MD elicited complaint: back pain Pertinent past history: prior back pain Onset (ago): day(s) Timing: constant Severity: severe Similar Symptoms Previously: No Quality: aching and tingling Location: lumbar spine Radiation: right upper leg Exacerbating factors: movement Associated symptoms: denies other symptoms Treatments prior to arrival: other (baclofen) Work related injury: No Related Data Home Medications Medication Instructions Recorded Confirmed buprenorphine 8 mg-naloxone 2 mg 2 film sublingual DAILY 12/20/20 10/30/21 sublingual film (Suboxone) acetaminophen 650 mg 650 mg PO Q8H PRN fever 04/11/21 10/30/21 tablet,extended release (Arthritis Pain Relief (acetaminophen) ER) melatonin 5 mg tablet 10 mg PO BEDTIME PRN insomnia 04/11/21 10/30/21 sildenafil 50 mg tablet (Viagra) 50 mg PO DAILY PRN 04/11/21 10/30/21 valacyclovir 500 mg tablet 500 mg PO BID 04/11/21 10/30/21 cholecalciferol (vitamin D3) 50 50 mcg PO DAILY 10/30/21 10/30/21 mcg (2,000 unit) capsule fluticasone propionate 50 2 spray intranasal DAILY 10/30/21 10/30/21 mcg/actuation nasal spray,suspension albuterol sulfate 90 mcg/actuation 2 puff inhalation Q6H PRN 03/28/23 aerosol inhaler clonidine HCl 0.1 mg tablet 0.1 mg PO BID 06/05/22 varenicline 1 mg tablet 1 mg PO BID 06/05/22 Previous Rx's Medication Instructions Recorded ibuprofen 600 mg tablet 600 mg PO Q8H PRN pain #15 tabs 08/09/20 fluticasone 250 mcg-salmeterol 50 1 inh inhalation BID copd 30 days 10/30/21 mcg/dose blistr powdr for #60 ea inhalation (Advair Diskus) prednisone 20 mg tablet 40 mg PO DAILY #10 tabs 09/29/22 Allergies Allergy/AdvReac Type Severity Reaction Status Date / Time No Known Allergies Allergy Verified 06/05/22 15:23 [No Known Allergies*] Review of Systems Review of Systems: As per HPI. Yes all other systems are reviewed and are negative Constitutional: Constitutional: Reports as per HPI PMFSH Past Medical History Medical History COPD (chronic obstructive pulmonary disease) Depression with anxiety History of heroin abuse Mediastinal adenopathy Personal history of nicotine dependence Smoker Surgical History History of colonoscopy (~2019) Social History Social History Alcohol intake: never Patient Tobacco Use Status: Current everyday Tobacco user Cigarettes Per Day: 1 Years Smoked: 42 Advance Directives: No Advance Directives Information Provided: No Physical Exam Vital Signs: Vital Signs: Last Vital Signs Temp 96.8 F 09/29/22 13:21 Pulse 91 09/29/22 13:21 Resp 18 09/29/22 13:21 BP 155/91 H 09/29/22 13:21 Pulse Ox 95 09/29/22 13:21 O2 Del Method Room Air 09/29/22 13:21 BMI result Body Mass Index 33.5 Vital signs have been reviewed and appear to be correct. Blood pressure elevated. Heart rate normal. Respiratory rate normal. Temperature normal. Oxygen saturation normal. Const: General: cooperative, healthy appearing and no acute distress Orientation/consciousness: oriented to person, oriented to place, oriented to time and patient oriented x3 Limitations: no limitations HEENT: Head: Yes normocephalic and Yes atraumatic Ears: external ears normal General nose exam: Normal external nose present Face and sinus: Yes face symmetric Mouth: oropharynx normal and moist mucous membranes Throat: Yes uvula midline Eyes: Pupils: Equal, round and reactive pupils present Neck: Neck: Yes normal visual inspection and Yes supple Resp: Effort & Inspection: normal respiratory effort and able to speak in complete sentences Auscultation: clear to auscultation bilaterally Cardio: Rate: regular rate Rhythm: regular rhythm Heart sounds: S1 normal heart sound present and S2 normal heart sound present GI: Palpation (GI): Soft to palpation and nontender Auscultation: normoactive bowel sounds : General: Yes no CVA tenderness Back/Spine/Pelvis: Back: no CVA tenderness Cervical Spine: No Cervical spine tenderness Thoracic/Lumbar Spine: thoracic and lumbar spine normal to inspection, thoraco-lumbar ROM normal, straight leg raise negative bilaterally, No thoracic spinal tenderness and No lumbar spinal tenderness Pelvis: no pain with anterior-posterior compression and no pain with lateral compression Sacroiliac joints: on the right tender to palpation Skin: General skin exam: elasticity normal and turgor normal Neuro: General: oriented to person, oriented to place, oriented to time, patient oriented x3, moves all extremities, no focal motor deficits and CN's II-XI intact bilaterally Cranial nerves: Yes Equal, round and reactive pupils present Cognition (Neuro): normal cognition Extrem: General: Yes full ROM, Yes no pedal edema and Yes no calf tenderness Psych: Mental Status: mental status grossly normal Affect: normal affect Thought process: Normal thought process present Course Course Course Narrative: This is an RME: Additional HPI, ROS, PE not included below will be deferred to primary provider. Patient is a 56-year-old male presents to the emergency department for evaluation of right lower back pain. Onset 1 year ago, worsening pain, without injury over the past week. Denies genitourinary symptoms. Did not trial OTC pain medication, noted some improvement with taking [place] 3, he also takes Suboxone. Plan: pain management and re-assess Medications Administered Discontinued Medications Generic Name Dose Route Start Last Admin Trade Name Freq PRN Reason Stop Dose Admin Ketorolac Tromethamine 30 mg 09/29/22 13:21 09/29/22 13:44 Ketorolac Tromethamine 30 Mg/Ml Vial IM 09/29/22 13:22 30 mg ONCE ONE Administration Medical Decision Making Medical Decision Making [facility] Narrative: Patient is a 56-year-old male with history of COPD, on Suboxone for the past 9 years presenting to the emergency department with complaint lower back pain for the past year, has worsened and beyond to radiate to the right over the past 3 days. He reports intermittent radiation down right leg with associated numbness and tingling. On exam patient is awake, A+Ox3, BP mildly elevated, VS otherwise WNL, afebrile, normal neurological exam without focal deficits, no midline tenderness, DTRs 2+ throughout, a straight leg raise negative bilaterally. Given reported symptoms and physical exam findings, initial differential includes lumbar radiculopathy, lumbar strain, herniated disc, compression fracture. No red flag findings on physical exam. Unlikely cauda equina, spinal epidural abscess, malignancy/mass, AAA rupture. X-ray notable for moderate to severe lumbar spondylosis, no acute fracture. My interpretation is in agreement with the radiologist's interpretation. Will discharge patient home with short course of prednisone, advised patient to utilize NSAIDs after completing the course of prednisone, advised patient to follow-up with PCP and will refer to [facility]. Return precautions discussed at bedside. All results discussed and all questions answered. Patient verbalized understanding of and agreement with plan. Differential Diagnosis Differential Diagnoses: The differential diagnosis associated with the presentation includes As per MDM. Independent Interpretation I performed an independent interpretation of an: Plain X-Ray Interpretation: Moderate lumbar spondylosis, no acute fracture Radiology Impression Discussion of test interpretation with radiology: I have reviewed the radiologist's reading. Radiologist Impression: FINDINGS: Dextroconvex scoliosis. The sagittal alignment is maintained. Vertebral body heights are maintained. No acute vertebral compression deformities are identified. Multilevel moderate-severity disc degenerative changes, with disc height loss, endplate osteophytes, sclerosis. Multilevel facet degeneration. SI joints are intact. No abnormal soft tissue calcification. XR/XR lumbar spine 2-3V IMPRESSION: Moderate-severe severe lumbar spondylosis. Dextroconvex scoliosis. No radiographic evidence of acute fracture. External Record Review External record reviewed: Inpatient record, Office record and Outpatient record Prescription Management I considered prescription management with: Other (prednisone) Discharge Plan Discharge Clinical Impression: Lumbar spondylosis Patient Disposition: Home, Self-Care Instructions: Acute Low Back Pain (ED) Additional Instructions: You were evaluated in the emergency department today for back pain. Your evaluation did not show signs of medical conditions requiring emergent intervention at this time. You are being prescribed a short course of a steroid called prednisone. DO NOT TAKE NSAIDS (IBUPROFEN, NAPROXEN) WHILE TAKING THE PREDNISONE. You may begin taking ibuprofen again the day after you take your last dose of prednisone. We recommended that you use ibuprofen or Tylenol per package directions every 6 hours as needed for pain. If necessary, you can alternate these medications so that you take one medication every 3 hours. For instance, at noon take ibuprofen, then at 3:00 p.m. take Tylenol, then at 6:00 p.m. take ibuprofen. You are being referred to a product info specialist, please contact them for an appointment. Please schedule an appointment for follow-up with your primary care physician this week for further evaluation of your symptoms. Return to the emergency department if you experience worsening back pain, difficulty walking, fevers, numbness, tingling, incontinence, groin numbness or tingling, or any other concerning symptoms. Prescriptions: New prednisone 20 mg tablet 40 mg PO DAILY Qty: 10 0RF No Action ibuprofen 600 mg tablet 600 mg PO Q8H PRN (Reason: pain) Qty: 15 0RF buprenorphine-naloxone [Suboxone] 8-2 mg film 2 film sublingual DAILY Rx Instructions: place 1 strip/tab under (each) side of tongue melatonin 5 mg tablet 10 mg PO BEDTIME PRN (Reason: insomnia) valacyclovir 500 mg tablet 500 mg PO BID acetaminophen [Arthritis Pain Relief (acetam)] 650 mg tablet extended release 650 mg PO Q8H PRN (Reason: fever) sildenafil [Viagra] 50 mg tablet 50 mg PO DAILY PRN albuterol sulfate 90 mcg/actuation HFA aerosol inhaler 2 puff inhalation Q6H PRN varenicline 1 mg tablet 1 mg PO BID clonidine HCl 0.1 mg tablet 0.1 mg PO BID cholecalciferol (vitamin D3) 50 mcg (2,000 unit) capsule 50 mcg PO DAILY fluticasone propionate 50 mcg/actuation spray,suspension 2 spray intranasal DAILY fluticasone propion-salmeterol [Advair Diskus] 250-50 mcg/dose blister with device 1 inh inhalation BID 30 Days Qty: 60 4RF Referrals: [facility] [Provider Group]
[2022-09-29 13:21] VITALS: BP 155/91; PULSE 91; RESP 18; TEMP 36; O2SAT 95; BMI 33.5
[2022-09-29] MEDS: Ketorolac Tromethamine 30 MG/ML VIAL IM (13:44)
[2022-09-29 17:07] VITALS: BP 136/72; PULSE 77; RESP 16; TEMP 36.2; O2SAT 97
== END 2022-09-29 17:21 | disposition home or self-care (01) ==
PROVIDERS: Emergency Provider Emergency Medicine; PCP Family Medicine
DX: M47.816 Spondylosis without myelopathy or radiculopathy, lumbar region (principal); M54.50 Low back pain, unspecified; J44.9 Chronic obstructive pulmonary disease, unspecified; Z79.899 Other long term (current) drug therapy
CPT/HCPCS: 72100; 96372; 99283; 99284; J1885

== ENCOUNTER 2022-10-02 17:01 | Emergency (ER) | payer MEDICAID, SELFPAY ==
--- NOTE | 2022-10-02 | ECG_ITS ---
Test Reason : cp Blood Pressure : / mmHG Vent. Rate : 104 BPM Atrial Rate : 104 BPM P-R Int : 148 ms QRS Dur : 082 ms QT Int : 340 ms P-R-T Axes : 067 046 046 degrees QTc Int : 447 ms Sinus tachycardia Otherwise normal ECG When compared with ECG of 01-FEB-2019 20:21, No significant change was found Referred By: Generic ED Physician Electronically Signed By:MARLEE GRANT MD
--- NOTE | ~2022-10-02 | XR_ITS ---
EXAMINATION: XR CHEST CLINICAL INFORMATION: Chest pain COMPARISON: Chest radiograph 04/07/[address] chest 10/02/2021 TECHNIQUE: 2 views of the chest were obtained. FINDINGS: No significant abnormality is noted involving the heart, lungs, mediastinum, bony thorax or soft tissues. Mild biconvex thoracolumbar scoliosis with mild degenerative changes in the spine. XR/XR chest 2V IMPRESSION: No acute intrathoracic disease.
[2022-10-02 17:20] LABS: MANUAL DIFF FLAG NO
[2022-10-02 17:21] VITALS: BP 151/74; PULSE 95; RESP 18; TEMP 36.1; O2SAT 97; BMI 33.5
[2022-10-02 17:30] LABS: Basophils Percent Auto 0.1 % (0-2); Hematocrit 41.6 % (42.0-52.0); Hemoglobin 14.1 g/dl (14.0-18.0); Imm Gran Abs Auto 0.07 X10*3/uL (0.00-0.03); Imm Gran Pct Auto 0.5 % (0.0-0.4); Lymphocytes Absolute Auto 2.7 X10*3/uL (1.2-4.9); Lymphocytes Percent Auto 18.2 % (20-40); Mean Corpuscular HGB Conc 33.9 g/dl (31.0-36.0); Mean Corpuscular Hemoglobin 29.7 pg (27.0-33.0); Mean Corpuscular Volume 87.8 fL (80.0-98.0); Mean Platelet Volume 9.7 fL (9.4-12.4); Monocytes Absolute Auto 0.6 X10*3/uL (0.1-1.2); Monocytes Percent Auto 4.1 % (2-11); Neutrophils Absolute Auto 11.6 x10*3/uL (2.0-8.3); Neutrophils Percent Auto 77.1 % (45-73); Platelet Count 307 X10*3/uL (160-400); Red Blood Count 4.74 X10*6/uL (4.60-5.80)
[2022-10-02 17:40] LABS: Alanine Aminotransferase 35 U/L (0-40); Albumin Level 4.5 g/dL (3.5-5.0); Alkaline Phosphatase 76 U/L (39-117); Anion Gap 12 (12-20); Aspartate Amino Transferase 26 U/L (5-37); Bilirubin Total 0.4 mg/dL (0.0-1.0); Blood Urea Nitrogen 18 mg/dL (9-16); Calcium 9.5 mg/dL (8.4-10.2); Carbon Dioxide 29 mmol/L (22-29); Chloride 101 mmol/L (96-108); Creatinine Clr Calc Pharmacy 110.2; Estimated Glomerular Filt Rate > 60; Glucose Random 99 mg/dL (60-115); Potassium 4.1 mmol/L (3.3-5.1); Sodium 138 mmol/L (135-145); Total Protein 8.2 g/dL (6.5-8.0)
[2022-10-02 17:55] LABS: Troponin-I High Sensitivity < 2.7 ng/L (<3.5-35.0)
[2022-10-02 20:22] VITALS: BP 137/81; PULSE 81; RESP 22; TEMP 36.8; O2SAT 96
--- NOTE | 2022-10-02 20:42 | PC.NURSE ---
pt a&o, no sob, report chest discomfort 5/10, denies any other symptoms, was placed on predispose and baclofen not sure if medication cause symptoms. no sign of distress. Will continue to monitor.
--- NOTE | 2022-10-02 21:37 | ED.CHESTPAIN ---
HPI - Chest Pain General Chief Complaint: Chest Pain Stated Complaint: Chest Pain/ Rapid Heart beat/lower back pain Time Seen by Provider: 10/02/22 20:42 Source: patient Mode of arrival: ambulatory Limitations: no limitations History of Present Illness HPI narrative: Patient comes emergency room complaining of anxiety and palpitations. Patient states that he was seen 2 days here ago for hip pain. Started on prednisone and baclofen. Patient states that when they were taking his blood pressure, it was mentioned to him that smoking puts him at higher risk of coronary event. Since then, patient has been very anxious and decided to come to get checked out today. Patient states he does not have chest pain. Patient was just having palpitations, feeling anxious about the conversation of smoking and coronary artery disease. Related Data Home Medications Medication Instructions Recorded Confirmed buprenorphine 8 mg-naloxone 2 mg 2 film sublingual DAILY 12/20/20 10/30/21 sublingual film (Suboxone) acetaminophen 650 mg 650 mg PO Q8H PRN fever 04/11/21 10/30/21 tablet,extended release (Arthritis Pain Relief (acetaminophen) ER) melatonin 5 mg tablet 10 mg PO BEDTIME PRN insomnia 04/11/21 10/30/21 sildenafil 50 mg tablet (Viagra) 50 mg PO DAILY PRN 04/11/21 10/30/21 valacyclovir 500 mg tablet 500 mg PO BID 04/11/21 10/30/21 cholecalciferol (vitamin D3) 50 50 mcg PO DAILY 10/30/21 10/30/21 mcg (2,000 unit) capsule fluticasone propionate 50 2 spray intranasal DAILY 10/30/21 10/30/21 mcg/actuation nasal spray,suspension albuterol sulfate 90 mcg/actuation 2 puff inhalation Q6H PRN 06/05/22 aerosol inhaler clonidine HCl 0.1 mg tablet 0.1 mg PO BID 06/05/22 varenicline 1 mg tablet 1 mg PO BID 06/05/22 Previous Rx's Medication Instructions Recorded ibuprofen 600 mg tablet 600 mg PO Q8H PRN pain #15 tabs 08/09/20 fluticasone 250 mcg-salmeterol 50 1 inh inhalation BID copd 30 days 10/30/21 mcg/dose blistr powdr for #60 ea inhalation (Advair Diskus) prednisone 20 mg tablet 40 mg PO DAILY #10 tabs 09/29/22 Allergies Allergy/AdvReac Type Severity Reaction Status Date / Time No Known Allergies Allergy Verified 06/05/22 15:23 [No Known Allergies*] Review of Systems Review of Systems: Constitutional : No Weight loss, No Fever, No Chills, No Night Sweats, No Fatigue, No Malaise ENT/Mouth : No Hearing loss, No Ear Pain, No Nasal Congestion, No Sinus Pain, No Hoarseness, No sore throat, No Rhinorrhea, No Swallowing Difficulty Eyes: No Eye Pain, No Swelling, No Redness, No Foreign Body, No Discharge, No Vision Changes Cardiovascular : No Chest Pain, No SOB, No Dyspnea on Exertion, No Orthopnea, No Edema, intermittent Palpitations Respiratory : No Cough, No Sputum, No Wheezing, No Smoke Exposure, No Dyspnea Gastrointestinal : No Nausea, No Vomiting, No Diarrhea, No Constipation, No abdominal Pain, No Hematochezia, No Melena Genitourinary : no irregular bleeding, No Dysuria, No Urinary Frequency, No Hematuria, No Urinary Incontinence, No Urgency, No Flank Pain, No Urinary Flow Changes, No Hesitancy Musculoskeletal complaining of chronic hip pain No Myalgias, No Joint Swelling Skin : No Skin Lesions, No rash Neuro : No Weakness, No Numbness, No Paresthesias, No Loss of Consciousness, No Dizziness, No Headache Psych : No Anxiety/Panic, No Depression, No SI/HI/AH/VH, No Social Issues, Heme/Lymph: No Bruising, No Bleeding,No Lymphadenopathy Endocrine : No Polyuria, No Polydipsia, No Temperature Intolerance [facility] Past Medical History Medical History COPD (chronic obstructive pulmonary disease) Depression with anxiety History of heroin abuse Mediastinal adenopathy Personal history of nicotine dependence Smoker Surgical History History of colonoscopy (~2019) Social History Social History Alcohol intake: never Patient Tobacco Use Status: Current everyday Tobacco user Cigarettes Per Day: 1 Years Smoked: 42 Smoked in Last 30 Days: Yes Use of substances other than those prescribed or required for medical reasons: No Substance Use Frequency Other:: hx of using on suboxone Advance Directives: No Advance Directives Information Provided: Yes Physical Exam Vital Signs: Vital Signs: Last Vital Signs Temp 98.3 F 10/02/22 20:22 Pulse 81 10/02/22 20:22 Resp 22 H 10/02/22 20:22 BP 137/81 10/02/22 20:22 Pulse Ox 96 10/02/22 20:22 O2 Del Method Room Air 10/02/22 20:22 BMI result Body Mass Index 33.5 Const: Other: Appearance: Alert. Oriented X3. No acute distress. Eyes: Pupils equal, round and reactive to light. ENT: Pharynx normal. Neck: Normal inspection. Neck supple. No lymph nodes noted. No crepitus CVS: Normal heart rate and rhythm. Pulses normal. Normal S1 and S2 Respiratory: No respiratory distress. Breath sounds normal. No Wheezing. No rales Abdomen: Soft and nontender. No rigidity. No distention. Skin: Skin warm and dry. Normal skin color. Normal skin turgor. Extremities: No lower extremity edema. No Lacerations. No Rash Neuro: Oriented X 3. No motor deficit. No sensory deficit. Moving all extremities. No slurred speech. CN 2 through 12 grossly intact Psych: calm, cooperative, normal affect Medical Decision Making Medical Decision Making [facility] Narrative: -my interpretation of labs: White blood cell count elevated 15, patient is on prednisone for chronic hip pain. Septic joint is not suspected -my interpretation of EKG: Heart rate 104, no ST segment depression or elevation, no T-wave inversion, QTC 447 -my interpretation of chest x-ray: No pneumonia, no rib fractures -patient asymptomatic Differential Diagnosis Differential Diagnoses: The differential diagnosis associated with the presentation includes (Palpitations, SVT, pneumonia, anxiety) Lab Data [facility] Lab Attestation statement: I reviewed the patient's lab results. 10/02/22 17:14 10/02/22 17:14 Labs: Lab Results 10/02/22 10/02/22 10/02/22 Range/Units 17:14 17:14 17:14 WBC 15.0 H (4.8-10.8) X10*3/uL RBC 4.74 (4.60-5.80) X10*6/uL Hgb 14.1 (14.0-18.0) g/dl Hct 41.6 L (42.0-52.0) % MCV 87.8 (80.0-98.0) fL MCH 29.7 (27.0-33.0) pg MCHC 33.9 (31.0-36.0) g/dl RDW 12.0 (11.0-16.0) % Plt Count 307 (160-400) X10*3/uL MPV 9.7 (9.4-12.4) fL Immature Gran % (Auto) 0.5 H (0.0-0.4) % Neut % (Auto) 77.1 H (45-73) % Lymph % (Auto) 18.2 L (20-40) % Dixon % (Auto) 4.1 (2-11) % Eos % (Auto) 0.0 (0-4) % Baso % (Auto) 0.1 (0-2) % Lymph # (Auto) 2.7 (1.2-4.9) X10*3/uL [place] # (Auto) 0.6 (0.1-1.2) X10*3/uL Eos # (Auto) 0.0 (0.0-0.4) X10*3/uL Baso # (Auto) 0.0 (0.0-0.2) X10*3/uL Abs Immat Gran (auto) 0.07 H (0.00-0.03) X10*3/uL Absolute Neuts (auto) 11.6 H (2.0-8.3) x10*3/uL Absolute Nucleated RBC 0.000 (0.0-0.012) X10*3/uL Nucleated RBC % (auto) 0.0 (0.0-0.2) /100WBC Sodium 138 (135-145) mmol/L Potassium 4.1 (3.3-5.1) mmol/L Chloride 101 (96-108) mmol/L Carbon Dioxide 29 (22-29) mmol/L Anion Gap 12 (12-20) BUN 18 H (9-16) mg/dL Creatinine 0.83 (0.5-1.4) mg/dL Estim Creat Clear Calc 110.2 Estimated GFR > 60 Random Glucose 99 (60-115) mg/dL Calcium 9.5 (8.4-10.2) mg/dL Total Bilirubin 0.4 (0.0-1.0) mg/dL AST 26 (5-37) U/L ALT 35 (0-40) U/L Alkaline Phosphatase 76 (39-117) U/L Troponin I High Sens < 2.7 (<3.5-35.0) ng/L Total Protein 8.2 H (6.5-8.0) g/dL Albumin 4.5 (3.5-5.0) g/dL Independent Interpretation I performed an independent interpretation of an: EKG and Plain X-Ray Radiology Impression Discussion of test interpretation with radiology: I have reviewed the radiologist's reading. Radiologist Impression: FINDINGS: No significant abnormality is noted involving the heart, lungs, mediastinum, bony thorax or soft tissues. Mild biconvex thoracolumbar scoliosis with mild degenerative changes in the spine. XR/XR chest 2V IMPRESSION: No acute intrathoracic disease. Discharge Plan Discharge Clinical Impression: Palpitation, Anxiety Patient Disposition: Home, Self-Care Instructions: Anxiety (ED), Heart Palpitations (ED) Additional Instructions: Please follow-up with your primary care physician tomorrow. If you have any worsening or new symptoms, please return to the emergency room or call 911 Prescriptions: No Action ibuprofen 600 mg tablet 600 mg PO Q8H PRN (Reason: pain) Qty: 15 0RF prednisone 20 mg tablet 40 mg PO DAILY Qty: 10 0RF buprenorphine-naloxone [Suboxone] 8-2 mg film 2 film sublingual DAILY Rx Instructions: place 1 strip/tab under (each) side of tongue melatonin 5 mg tablet 10 mg PO BEDTIME PRN (Reason: insomnia) valacyclovir 500 mg tablet 500 mg PO BID acetaminophen [Arthritis Pain Relief (acetam)] 650 mg tablet extended release 650 mg PO Q8H PRN (Reason: fever) sildenafil [Viagra] 50 mg tablet 50 mg PO DAILY PRN albuterol sulfate 90 mcg/actuation HFA aerosol inhaler 2 puff inhalation Q6H PRN varenicline 1 mg tablet 1 mg PO BID clonidine HCl 0.1 mg tablet 0.1 mg PO BID cholecalciferol (vitamin D3) 50 mcg (2,000 unit) capsule 50 mcg PO DAILY fluticasone propionate 50 mcg/actuation spray,suspension 2 spray intranasal DAILY fluticasone propion-salmeterol [Advair Diskus] 250-50 mcg/dose blister with device 1 inh inhalation BID 30 Days Qty: 60 4RF
--- NOTE | 2022-10-02 22:00 | PC.NURSE ---
Pt a&o, no sob or chest pain upon discharge, Reviewed discharge instruction with pt. pt verbalized understanding.
== END 2022-10-02 22:01 | disposition home or self-care (01) ==
PROVIDERS: Emergency Provider Emergency Medicine
DX: F41.9 Anxiety disorder, unspecified (principal); R00.2 Palpitations; F11.20 Opioid dependence, uncomplicated; F17.210 Nicotine dependence, cigarettes, uncomplicated
CPT/HCPCS: 36415; 71046; 80053; 84484; 85025; 93005; 99283; 99285

== ENCOUNTER → 2022-10-02 17:09 | Outpatient (BNV) | payer MEDICAID, SELFPAY | PROVIDERS: Emergency Provider Emergency Medicine; Visit Provider Internal Medicine Cardiovascular Disease | DX: R00.0 Tachycardia, unspecified (principal); R07.9 Chest pain, unspecified | CPT/HCPCS: 93010 ==

== ENCOUNTER 2022-10-13 15:18 | Emergency (ER) | payer MEDICAID, SELFPAY ==
[2022-10-13 15:26] VITALS: BP 140/85; PULSE 106; RESP 18; TEMP 36.3; O2SAT 97; BMI 37.1
--- NOTE | 2022-10-13 15:27 | ED_ITS ---
HPI - General Adult General Chief complaint: Extremity Injury, Lower Stated complaint: bilateral leg numbness Time Seen by Provider: 10/13/22 16:49 Source: patient and RN notes reviewed Mode of arrival: ambulatory Limitations: no limitations History of Present Illness HPI narrative: This a 56-year-old male presenting to the emergency department for evaluation of leg numbness since this morning. Patient reports that he woke up this morning and felt as though both of his legs were numb. He states that the sensation of numbness starts mid thigh and radiates down to his bilateral feet. He states that his right leg is worse than his left. Patient denies any back pain, bladder or bowel dysfunction. He denies any saddle anesthesia. He denies urinary or bowel incontinence or retention. Denies weakness in his lower extremities He was seen here in the emergency department last week due to back pain was treated with a course of prednisone. He denies any other complaints or concerns at this time. MD complaint: Leg numbness Onset (ago): day(s) Location: head Radiation: non-radiation Severity: moderate Relieving factors: none Exacerbating factors: none Associated symptoms: denies other symptoms Treatments prior to arrival: none Related Data Home Medications Medication Instructions Recorded Confirmed buprenorphine 8 mg-naloxone 2 mg 2 film sublingual DAILY 12/20/20 10/30/21 sublingual film (Suboxone) acetaminophen 650 mg 650 mg PO Q8H PRN fever 04/11/21 10/30/21 tablet,extended release (Arthritis Pain Relief (acetaminophen) ER) melatonin 5 mg tablet 10 mg PO BEDTIME PRN insomnia 04/11/21 10/30/21 sildenafil 50 mg tablet (Viagra) 50 mg PO DAILY PRN 04/11/21 10/30/21 valacyclovir 500 mg tablet 500 mg PO BID 04/11/21 10/30/21 cholecalciferol (vitamin D3) 50 50 mcg PO DAILY 10/30/21 10/30/21 mcg (2,000 unit) capsule fluticasone propionate 50 2 spray intranasal DAILY 10/30/21 10/30/21 mcg/actuation nasal spray,suspension albuterol sulfate 90 mcg/actuation 2 puff inhalation Q6H PRN 06/05/22 aerosol inhaler clonidine HCl 0.1 mg tablet 0.1 mg PO BID 06/05/22 varenicline 1 mg tablet 1 mg PO BID 06/05/22 Previous Rx's Medication Instructions Recorded ibuprofen 600 mg tablet 600 mg PO Q8H PRN pain #15 tabs 08/09/20 fluticasone 250 mcg-salmeterol 50 1 inh inhalation BID copd 30 days 10/30/21 mcg/dose blistr powdr for #60 ea inhalation (Advair Diskus) prednisone 20 mg tablet 40 mg PO DAILY #10 tabs 09/29/22 Allergies Allergy/AdvReac Type Severity Reaction Status Date / Time No Known Allergies Allergy Verified 10/13/22 15:30 [No Known Allergies*] Review of Systems Review of Systems: Yes all other systems are reviewed and are negative Constitutional: Constitutional: Reports as per HPI [facility] Past Medical History Medical History COPD (chronic obstructive pulmonary disease) Depression with anxiety History of heroin abuse Mediastinal adenopathy Personal history of nicotine dependence Smoker Surgical History History of colonoscopy (~2018) Social History Social History Alcohol intake: never Patient Tobacco Use Status: Current everyday Tobacco user Cigarettes Per Day: 1 Years Smoked: 42 Advance Directives: No Advance Directives Information Provided: No Physical Exam ED Vital Signs: Vital Signs - 24 hr 10/13/22 15:26 10/13/22 16:21 Temperature 97.4 F 98 F Pulse Rate 106 H 76 Respiratory Rate 18 Blood Pressure 140/85 H 123/82 Pulse Oximetry 97 99 Oxygen Delivery Method Room Air Room Air BMI result Body Mass Index 37.1 Const General: cooperative, comfortable and no acute distress Orientation/consciousness: patient oriented x3 Limitations: no limitations [facility] Head: Yes normal to inspection, Yes normocephalic and Yes atraumatic Ears: hearing grossly normal bilaterally General nose exam: Normal external nose present Face and sinus: Yes normal facial exam Mouth: Normal oral and palatal mucosa present, oropharynx normal and moist mucous membranes Throat: Yes posterior oropharynx normal Eyes General: appearance normal, both eyes and all related structures Eyelids: Yes eyelids normal Conjunctivae: conjunctivae normal Sclerae: sclerae normal Pupils: Equal, round and reactive pupils present EOM: EOMs intact bilaterally Neck Neck: Yes normal visual inspection, Yes full ROM and Yes no lymphadenopathy Lymphatic: no lymphadenopathy noted Chest Chest palpation & inspection: normal inspection of the chest Resp Effort & Inspection: normal respiratory effort and able to speak in complete sentences Auscultation: clear to auscultation bilaterally, no crackles, no rales, no rhonchi and no wheezes Cardio Rate: regular rate Rhythm: regular rhythm Heart sounds: S1 normal heart sound present and S2 normal heart sound present GI Other: Rectal exam performed with extrusion press operator, Aviva Cohen RN, present during the entire examination. Patient has good rectal tone, sensation is intact. Inspection: Yes normal to inspection General: Yes no CVA tenderness Back/Spine/Pelvis Other: No midline spine tenderness to palpation. No lumbar paraspinous muscle tenderness palpation. Back: no CVA tenderness Cervical Spine: normal cervical lordosis Thoracic/Lumbar Spine: thoracic and lumbar spine normal to inspection Skin General skin exam: no rashes or lesions noted Trauma: no lacerations or abrasions Wounds: no wounds Neuro General: patient oriented x3 and moves all extremities Cranial nerves: Yes CN's II-XII intact bilaterally, Yes Equal, round and reactive pupils present and Yes Midline tongue present Extrem Other: Bilateral lower extremities without any gross findings. Distal sensation circulation intact. Patient reporting decreased sensation in left inner thigh, otherwise sensation is the same throughout all extremities. Strength is equal bilaterally. General: Yes normal to inspection Right upper extremity: normal to inspection Left upper extremity: normal to inspection Right lower extremity: normal to inspection Left lower extremity: normal to inspection Course Course Course Narrative: This is an RME: Additional HPI, ROS, PE not included below will be deferred to primary provider. Patient is a 56-year-old male who presents emergency department for evaluation of bilateral lower extremity numbness R>L. States that he awoke this morning with sensation of numbness from the mid thigh down to the bilateral feet including only the great toe. Denies any precipitating inju ry. When asked who reports a history of his right leg feeling ?not normal? but does not typically feel numb as it is currently. Denies back pain, bladder or bowel dysfunction. Likely radiculopathy, He is ambulatory with a steady gait, mildly tachycardic, plan to obtain labs to exclude alternative cause for paresthesia's Medical Decision Making Medical Decision Making MDM Narrative: 56-year-old male, with no known past medical history, presenting to the emergency department for evaluation of lower extremity numbness. Patient reporting decreased sensation to his left inner thigh, otherwise no other neurologic or findings on examination. Back is nontender. Patient has no red flag symptoms to suggest cauda equina syndrome (no bowel or urinary incontinence/retention, no saddle anesthesia, no distal weakness), or any decreased strength to his lower extremity sit to suggest myelopathic syndrome like Guillain-Charleston. Patient has good rectal tone. Symptoms are likely due to a lumbar radiculopathy. Discussed with patient that he needs a follow-up with his primary care physician regarding this as he likely needs further imaging like an MRI and a further treatment plan for them. Patient understands and agrees with plan. Discussed return precautions if any new or worsening symptoms occur. Vital signs have remained stable throughout his duration of stay. Patient is stable for discharge. Differential Diagnosis Differential Diagnoses: The differential diagnosis associated with the presentation includes Lumbar radiculopathy, see above for additional differentials Admission/Observation Consideration of admission/observation: Escalation of care including admission/observation considered Escalation of care was considered however given findings on examination, patient's symptoms can be managed outpatient. He was given strict return precautions if any new or worsening symptoms occur. Lab Data MDM Lab Attestation statement: I reviewed the patient's lab results. No leukocytosis, stable H&H, electrolytes within normal limits. TSH normal. 10/13/22 15:53 10/13/22 15:53 Labs: Lab Results 10/13/22 10/13/22 Range/Units 15:53 15:53 WBC 8.1 (4.8-10.8) X10*3/uL RBC 4.84 (4.60-5.80) X10*6/uL Hgb 14.3 (14.0-18.0) g/dl Hct 42.4 (42.0-52.0) % MCV 87.6 (80.0-98.0) fL MCH 29.5 (27.0-33.0) pg MCHC 33.7 (31.0-36.0) g/dl RDW 11.7 (11.0-16.0) % Plt Count 262 (160-400) X10*3/uL MPV 9.4 (9.4-12.4) fL Immature Gran % (Auto) 0.1 (0.0-0.4) % Neut % (Auto) 60.2 (45-73) % Lymph % (Auto) 31.3 (20-40) % Stone % (Auto) 6.8 (2-11) % Eos % (Auto) 1.1 (0-4) % Baso % (Auto) 0.5 (0-2) % Lymph # (Auto) 2.5 (1.2-4.9) X10*3/uL Stone # (Auto) 0.6 (0.1-1.2) X10*3/uL Eos # (Auto) 0.1 (0.0-0.4) X10*3/uL Baso # (Auto) 0.0 (0.0-0.2) X10*3/uL Abs Immat Gran (auto) 0.01 (0.00-0.03) X10*3/uL Absolute Neuts (auto) 4.8 (2.0-8.3) x10*3/uL Absolute Nucleated RBC 0.000 (0.0-0.012) X10*3/uL Nucleated RBC % (auto) 0.0 (0.0-0.2) /100WBC Sodium 139 (135-145) mmol/L Potassium 4.5 (3.3-5.1) mmol/L Chloride 103 (96-108) mmol/L Carbon Dioxide 25 (22-29) mmol/L Anion Gap 16 (12-20) BUN 14 (9-16) mg/dL Creatinine 0.84 (0.5-1.4) mg/dL Estim Creat Clear Calc 114.8 Estimated GFR > 60 Random Glucose 89 (60-115) mg/dL Calcium 9.4 (8.4-10.2) mg/dL Total Bilirubin 0.4 (0.0-1.0) mg/dL AST 32 (5-37) U/L ALT 41 H (0-40) U/L Alkaline Phosphatase 78 (39-117) U/L Total Protein 7.9 (6.5-8.0) g/dL Albumin 4.1 (3.5-5.0) g/dL TSH 0.58 (0.32-4.0) uIU/mL Discharge Plan Discharge Clinical Impression: Leg numbness Patient Disposition: Home, Self-Care Instructions: Paresthesia (ED) Additional Instructions: Please take ibuprofen as directed as needed for symptoms. You need to follow-up with your primary care physician as you likely need an MRI. If any new or worsening symptoms occur including but not limited to numbness into your groin, urinary or bowel incontinence, you need to return for re- evaluation. Prescriptions: No Action ibuprofen 600 mg tablet 600 mg PO Q8H PRN (Reason: pain) Qty: 15 0RF prednisone 20 mg tablet 40 mg PO DAILY Qty: 10 0RF buprenorphine-naloxone [Suboxone] 8-2 mg film 2 film sublingual DAILY Rx Instructions: place 1 strip/tab under (each) side of tongue melatonin 5 mg tablet 10 mg PO BEDTIME PRN (Reason: insomnia) valacyclovir 500 mg tablet 500 mg PO BID acetaminophen [Arthritis Pain Relief (acetam)] 650 mg tablet extended release 650 mg PO Q8H PRN (Reason: fever) sildenafil [Viagra] 50 mg tablet 50 mg PO DAILY PRN albuterol sulfate 90 mcg/actuation HFA aerosol inhaler 2 puff inhalation Q6H PRN varenicline 1 mg tablet 1 mg PO BID clonidine HCl 0.1 mg tablet 0.1 mg PO BID cholecalciferol (vitamin D3) 50 mcg (2,000 unit) capsule 50 mcg PO DAILY fluticasone propionate 50 mcg/actuation spray,suspension 2 spray intranasal DAILY fluticasone propion-salmeterol [Advair Diskus] 250-50 mcg/dose blister with d evice 1 inh inhalation BID 30 Days Qty: 60 4RF Interventions: ED Discharge Assessment Last Done: 10/13/22 18:09 Discharge Date/Time: 10/13/22 18:11
[2022-10-13 15:57] LABS: MANUAL DIFF FLAG NO
[2022-10-13 16:05] LABS: Basophils Percent Auto 0.5 % (0-2); Eosinophils Absolute Auto 0.1 X10*3/uL (0.0-0.4); Eosinophils Percent Auto 1.1 % (0-4); Hematocrit 42.4 % (42.0-52.0); Hemoglobin 14.3 g/dl (14.0-18.0); Imm Gran Abs Auto 0.01 X10*3/uL (0.00-0.03); Imm Gran Pct Auto 0.1 % (0.0-0.4); Lymphocytes Absolute Auto 2.5 X10*3/uL (1.2-4.9); Lymphocytes Percent Auto 31.3 % (20-40); Mean Corpuscular HGB Conc 33.7 g/dl (31.0-36.0); Mean Corpuscular Hemoglobin 29.5 pg (27.0-33.0); Mean Corpuscular Volume 87.6 fL (80.0-98.0); Mean Platelet Volume 9.4 fL (9.4-12.4); Monocytes Absolute Auto 0.6 X10*3/uL (0.1-1.2); Monocytes Percent Auto 6.8 % (2-11); Neutrophils Absolute Auto 4.8 x10*3/uL (2.0-8.3); Neutrophils Percent Auto 60.2 % (45-73); Platelet Count 262 X10*3/uL (160-400); Red Blood Count 4.84 X10*6/uL (4.60-5.80); Red Cell Distribution Width 11.7 % (11.0-16.0); White Blood Count 8.1 X10*3/uL (4.8-10.8)
[2022-10-13 16:20] LABS: Alanine Aminotransferase 41 U/L (0-40); Albumin Level 4.1 g/dL (3.5-5.0); Alkaline Phosphatase 78 U/L (39-117); Anion Gap 16 (12-20); Aspartate Amino Transferase 32 U/L (5-37); Bilirubin Total 0.4 mg/dL (0.0-1.0); Blood Urea Nitrogen 14 mg/dL (9-16); Calcium 9.4 mg/dL (8.4-10.2); Carbon Dioxide 25 mmol/L (22-29); Chloride 103 mmol/L (96-108); Creatinine Clr Calc Pharmacy 114.8; Estimated Glomerular Filt Rate > 60; Glucose Random 89 mg/dL (60-115); Potassium 4.5 mmol/L (3.3-5.1); Sodium 139 mmol/L (135-145); Total Protein 7.9 g/dL (6.5-8.0)
[2022-10-13 16:21] VITALS: BP 123/82; PULSE 76; TEMP 36.6; O2SAT 99
[2022-10-13 16:37] LABS: TSH reflex Free T4 0.58 uIU/mL (0.32-4.0)
== END 2022-10-13 18:11 | disposition home or self-care (01) ==
PROVIDERS: Nurse Practitioner Family; Emergency Provider Emergency Medicine; PCP Family Medicine
DX: R20.0 Anesthesia of skin (principal); F11.20 Opioid dependence, uncomplicated; F17.210 Nicotine dependence, cigarettes, uncomplicated
CPT/HCPCS: 36415; 80053; 84443; 85025; 99283

== ENCOUNTER 2022-11-23 08:33 | Outpatient (REF) | payer MEDICAID, SELFPAY ==
--- NOTE | ~2022-11-23 | MR_ITS ---
EXAMINATION: MR LUMBAR SPINE WITHOUT CONTRAST CLINICAL INFORMATION: Back pain and bilateral radiculopathy. COMPARISON: Plain films of the lumbar spine 09/29/2022. CT scan of the chest and abdomen 10/02/2021. TECHNIQUE: MRI of the lumbar spine was obtained using routine sequences without contrast. The patient was unable to complete the study, and the axial T2 sequence is incomplete. FINDINGS: VERTEBRAL BODIES AND PARASPINAL STRUCTURES: The study redemonstrates a rotatory dextroscoliosis. There are mild retrolistheses of L1 on L2 and L5 on S1. There is multilevel narrowing of intervertebral disc height throughout the lumbar spine. There are degenerative endplate contour changes with mild edematous signal at multiple levels. Fatty endplate signal changes are seen at L3-L4 and L4-L5. There are Schmorl's nodes at adjacent endplates at multiple levels. Vertebral body heights are maintained, and there are no acute fractures. Overall, marrow signal is homogenous. The infrarenal abdominal aorta is tortuous, but does not appear aneurysmal. The visualized pelvic structures are unremarkable. CONUS MEDULLARIS AND CAUDA EQUINA: Normal, terminating at the level of L1. The lower thoracic spinal cord appears normal. The cauda equina nerve roots and filum terminale appear normal. SPINAL LEVELS: T12-L1: There is mild bilateral facet arthropathy. The posterior disc protrusion, with narrowing of the right subarticular recess. There is no central stenosis. There is a right foraminal disc osteophyte complex. L1-L2: There is mild bilateral facet arthropathy. There is a posterior disc protrusion without significant mass effect on the thecal sac. There is no central stenosis. There is a right foraminal disc protrusion with impingement on the exiting right L1 nerve root. L2-L3: There is moderate left and mild right facet arthropathy. There is a posterior disc protrusion which is most prominent to the left of midline, and there is distortion the ventral thecal sac and narrowing of the left subarticular recess. There is no central stenosis. There are bilateral inferior foraminal disc protrusions, without definite exiting nerve root impingement. L3-L4: There is mild bilateral facet arthropathy. There is a posterior disc osteophyte complex extending into the left neural foramen with impingement on the exiting left L3 nerve root. There is no central stenosis. L4-L5: There is moderate severe left and moderate right facet arthropathy. There is a broad-based posterior disc protrusion which flattens the ventral thecal sac, but there is no central stenosis. There is a left foraminal disc protrusion with impingement on the exiting left L4 nerve root. L5-S1: There is moderate bilateral facet arthropathy. There is a broad-based posterior disc protrusion with flattening of the ventral thecal sac and there is mild narrowing of the subarticular recesses. There are right greater than left foraminal disc protrusions, and there is impingement on the exiting L5 nerve roots, more severely on the right. There is no central stenosis. MR/MR lumbar spine wo con IMPRESSION: 1. Slightly suboptimal study as the patient was unable to complete the exam. 2. At L5-S1 there is facet arthropathy and there is a broad-based posterior disc protrusion. There are right greater than left foraminal disc protrusions with impingement on the exiting L5 nerve roots. There is no central stenosis. 3. At L4-L5 there is facet arthropathy and there is a broad-based posterior disc protrusion. There is a left foraminal disc protrusion impinging on the exiting left L4 nerve root. There is no central stenosis. 4. At L3-L4 there is a posterior disc osteophyte complex extending into the left neural foramen with impingement on the exiting left L3 nerve root. There is no central stenosis. 5. At L1-L2 there is facet arthropathy and there is a posterior disc protrusion. There is a right foraminal disc protrusion impinging on the exiting right L1 nerve root.
== END 2022-11-23 08:34 | disposition home or self-care (01) ==
LOC: HO.MRI 08:33
PROVIDERS: PCP Family Medicine; Visit Provider Family Medicine
DX: M47.816 Spondylosis without myelopathy or radiculopathy, lumbar region (principal); M54.50 Low back pain, unspecified
CPT/HCPCS: 72148

== ENCOUNTER 2022-12-03 15:21 | Outpatient (AMB) | payer MEDICAID, SELFPAY ==
[2022-12-03 15:35] VITALS: BP 110/70; PULSE 88; O2SAT 96; BMI 33.5
--- NOTE | 2022-12-03 15:35 | A.OFFVIS_ITS ---
Intake Vital Signs 12/03/22 15:35 Height 5 ft 7 in Weight 214 lb BMI 33.5 BP 110/70 Blood Pressure Location Lt brachial Position Sitting Pulse 88 Pulse Source Pulse Oximeter Pulse Oximetry (%) 96 Oxygen Delivery Method Room Air Intake Visit Reasons: COPD Intake Note: pt is here for follow up and states he has some wheezing. He is down to 1 cigarette a day, some days without any. 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: No Allergies No Known Allergies [No Known Allergies*] Allergy (Verified 12/03/22 15:47) Medication List - Last Reconciled 12/03/22 by Ayanna Mcgraw MD acetaminophen ER (Arthritis Pain Relief (acetaminophen) ER) 650 mg PO Q8H PRN albuterol sulfate 90 mcg/actuation 2 puffs inhalation Q6H PRN buprenorphine-naloxone 8-2 mg (Suboxone) 2 film sublingual DAILY cholecalciferol (vitamin D3) 50 mcg PO DAILY clonidine HCl 0.1 mg PO BID fluticasone propion-salmeterol 250-50 mcg/dose (Advair Diskus) 1 inh inhalation BID 30 days fluticasone propionate 50 mcg/actuation 2 sprays intranasal DAILY ibuprofen 600 mg PO Q8H PRN melatonin 10 mg PO BEDTIME PRN sildenafil (Viagra) 50 mg PO DAILY PRN valacyclovir 500 mg PO BID varenicline 1 mg PO BID Do you need a note to return to daycare/school/sports/work: No HPI COPD HPI Details THIS 57 YEARS OLD GENTLEMAN IS HERE FOR FOLLOW-UP AFTER 6 MONTH. FOR HIS BRONCHIAL ASTHMA HE HAS BEEN DOING WELL. EXCEPT THAT EVERY NOW AND THEN HE GETS SOME TIGHT FEELING IN THE CHEST AND WHEEZING. HE HAS NOT BEEN USING ADVAIR TWICE A DAY REGULARLY, AND USING ONLY NEEDED. HE ALSO DOES NOT ANY RESCUE INHALER ON HAND. SMOKING IS DOWN TO ONLY 1 OR 2 CIGARETTES A DAY AND HE IS ON CHANTIX 1 MG B.I.D.. [facility] Medical History Depression with anxiety Personal history of nicotine dependence History of heroin abuse Mediastinal adenopathy COPD (chronic obstructive pulmonary disease) Smoker Surgical History History of colonoscopy (~2019) Social History Alcohol intake: never Patient Tobacco Use Status: Current everyday Tobacco user Cigarettes Per Day: 1 Years Smoked: 42 Review of Systems Const All systems reviewed & are unremarkable except as noted in HPI and below Eyes Reports no additional complaints ENT Reports no additional complaints Card Denies chest pain, Denies irregular heart rhythm and Denies leg edema Resp Reports as per HPI GI Reports no additional complaints Reports no additional complaints Musc Reports back pain (Mild, chronic) Skin/Breast Reports system reviewed and no additional complaints, except as documented Neuro Reports no additional complaints Psych Reports no additional complaints Physical Exam Vital Signs: Last Vital Signs Pulse 88 12/03/22 15:35 BP 110/70 12/03/22 15:35 Pulse Ox 96 12/03/22 15:35 Oxygen Delivery Method Room Air 12/03/22 15:35 BMI result Body Mass Index 33.5 Const General: comfortable, no acute distress, alert and awake Orientation/consciousness: patient oriented x3 HEENT Head: Yes normal to inspection General nose exam: No nasal polyps present and No nasal discharge present Face and sinus: Yes sinuses nontender Mouth: oropharynx normal Throat: Yes posterior oropharynx normal Eyes General: appearance normal, both eyes and all related structures Neck Neck: Yes normal visual inspection, Yes no lymphadenopathy, Yes trachea midline and Yes no JVD Thyroid: Thyroid normal Chest Chest palpation & inspection: normal inspection of the chest, normal palpation of entire chest wall and no tenderness Resp Other: Percussion note resonant, Breath sounds are slightly distant with prolonged expiratory phase. No active wheezes or rhonchi are heard. No crepitations. Cardio Palpation: normal PMI Rate: regular rate Rhythm: regular rhythm Heart sounds: no gallops and no murmurs GI Palpation (GI): Soft to palpation, nontender, No hepatosplenomegaly present and no masses Auscultation: normal bowel sounds Back/Spine/Pelvis Thoracic/Lumbar Spine: thoracic and lumbar spine normal to inspection Skin General skin exam: no rashes or lesions noted Neuro General: patient oriented x3 and no focal motor deficits Cranial nerves: Yes CN's II-XII intact bilaterally Extrem General: Yes normal to inspection, Yes no clubbing, cyanosis or edema and Yes no calf tenderness Psych Speech and movement: Normal speech and movement present Assessment & Plan Assessment & Plan (1) COPD (chronic obstructive pulmonary disease): Comment: He has moderately severe chronic obstructive pulmonary disease. His symptoms are much less since he has cut down the smoking. [place] : Advair 250-50 1 inhalation b.i.d. use regularly. Albuterol HFA 1 or 2 puffs Q 4 hours p.r.n. for acute wheezing. Code(s): J44.9 - Chronic obstructive pulmonary disease, unspecified (2) Mediastinal adenopathy: Comment: His last CT scan in September 2021 showed, mediastinal lymphadenopathy and multiple micro nodules. unchanged He would need a follow-up CT scan and I will make a note for his next visit. Code(s): R59.0 - Localized enlarged lymph nodes (3) Smoker: Comment: Explained to him the risks of continued smoking. He is thoroughly explained that he should quit smoking. * states that he has cut smoking to minimal, now smoking even half to 1 cigarettes a day, he is on Chantix, which he can continue. He is happy that his respiratory symptoms are much less since he has down the smoking. Code(s): F17.200 - Nicotine dependence, unspecified, uncomplicated Coding Level of Care Code Est Pt Level 3 (11798) Diagnoses COPD (chronic obstructive pulmonary disease) J44.9 Mediastinal adenopathy R59.0 Smoker F17.200
== END 2022-12-03 15:56 | disposition home or self-care (01) ==
PROVIDERS: PCP Family Medicine; Visit Provider Internal Medicine
DX: J44.9 Chronic obstructive pulmonary disease, unspecified (principal); R59.0 Localized enlarged lymph nodes; F17.200 Nicotine dependence, unspecified, uncomplicated
CPT/HCPCS: 99213

== ENCOUNTER → 2022-12-03 15:21 | Outpatient (BNVA) | payer MEDICAID, SELFPAY | PROVIDERS: Visit Provider Internal Medicine | DX: J44.9 Chronic obstructive pulmonary disease, unspecified (principal); R59.0 Localized enlarged lymph nodes; F17.210 Nicotine dependence, cigarettes, uncomplicated | CPT/HCPCS: 99212 ==

== ENCOUNTER 2023-02-15 09:01 | Outpatient (AMB) | payer MEDICAID, SELFPAY ==
--- NOTE | 2023-02-15 09:04 | MHC.OFFVIS ---
Intake Vital Signs 02/15/23 09:06 Height 5 ft 7 in Weight 214 lb BMI 33.5 Blood Pressure Location Lt brachial Position Sitting Respiration 12 Pulse 96 Pulse Source Pulse Oximeter Pulse Oximetry (%) 96 Oxygen Delivery Method Room Air Intake Visit Reasons: Chronic Low Back Pain/LMOVM Allergies No Known Allergies [No Known Allergies*] Allergy (Verified 02/15/23 09:07) Medication List - Last Reconciled 02/15/23 by Lulu Lim LPN acetaminophen ER (Arthritis Pain Relief (acetaminophen) ER) 650 mg PO Q8H PRN albuterol sulfate 90 mcg/actuation 2 puffs inhalation Q6H PRN buprenorphine-naloxone 8-2 mg (Suboxone) 2 film sublingual DAILY cholecalciferol (vitamin D3) 50 mcg PO DAILY fluticasone propion-salmeterol 250-50 mcg/dose (Advair Diskus) 1 inh inhalation BID 30 days fluticasone propionate 50 mcg/actuation 2 sprays intranasal DAILY ibuprofen 600 mg PO Q8H PRN melatonin 10 mg PO BEDTIME PRN sildenafil (Viagra) 50 mg PO DAILY PRN varenicline 1 mg PO BID HPI Chronic Low Back Pain/LMOVM HPI Details 57-year-old male who presents today to the office for an evaluation of chronic low back pain. He reports right lower back pain and iliac region radiating towards the waist and right buttock. He reports intermittent radiation down the right leg with associated numbness and tingling. He rates his pain at 7-8/10 in intensity. He was seen in the ER on 10/13/22 with the complaint of a sensation of numbness that starts mid-thigh and radiates down to his bilateral feet. He states that his right leg is worse than his left. He was also seen in the ER on 09/30/22 for hip pain and was started on baclofen and prednisone. He has tried physical therapy and attended one session, but he did not like it, so he did not return. He states that he did continue home exercises. He is currently on Suboxone. [facility] Medical History Depression with anxiety Personal history of nicotine dependence History of heroin abuse Mediastinal adenopathy COPD (chronic obstructive pulmonary disease) Smoker Surgical History History of colonoscopy (~2019) Social History Alcohol intake: never Patient Tobacco Use Status: Current everyday Tobacco user Cigarettes Per Day: 1 Years Smoked: 42 Review of Systems Const All systems reviewed & are unremarkable except as noted in HPI and below Physical Exam Vital Signs: Last Vital Signs Pulse 96 02/15/23 09:06 Resp 12 02/15/23 09:06 Pulse Ox 96 02/15/23 09:06 Oxygen Delivery Method Room Air 02/15/23 09:06 BMI result Body Mass Index 33.5 General: Appears afebrile. Alert and oriented. Mood and affect appropriate. Follows and participates in conversation appropriately. Respiratory effort is unlabored. Able to transition from sit to stand unassisted. Ambulates with bilaterally normal heel strike and toe off. There is no real tenderness to palpation. Straight leg raise is positive on right side. While standing on the toes, the right leg feels subjectively different than the left leg. He is able to stand and walk on his toes and heels. Results Reviewed Results Reviewed: 11/23/22: MR LUMBAR SPINE WITHOUT CONTRAST FINDINGS: VERTEBRAL BODIES AND PARASPINAL STRUCTURES: The study redemonstrates a rotatory dextroscoliosis. There are mild retrolistheses of L1 on L2 and L5 on S1. There is multilevel narrowing of intervertebral disc height throughout the lumbar spine. There are degenerative endplate contour changes with mild edematous signal at multiple levels. Fatty endplate signal changes are seen at L3-L4 and L4-L5. There are Schmorl's nodes at adjacent endplates at multiple levels. Vertebral body heights are maintained, and there are no acute fractures. Overall, marrow signal is homogenous. The infrarenal abdominal aorta is tortuous, but does not appear aneurysmal. The visualized pelvic structures are unremarkable. CONUS MEDULLARIS AND CAUDA EQUINA: Normal, terminating at the level of L1. The lower thoracic spinal cord appears normal. The cauda equina nerve roots and filum terminale appear normal. SPINAL LEVELS: T12-L1: There is mild bilateral facet arthropathy. The posterior disc protrusion, with narrowing of the right subarticular recess. There is no central stenosis. There is a right foraminal disc osteophyte complex. L1-L2: There is mild bilateral facet arthropathy. There is a posterior disc protrusion without significant mass effect on the thecal sac. There is no central stenosis. There is a right foraminal disc protrusion with impingement on the exiting right L1 nerve root. L2-L3: There is moderate left and mild right facet arthropathy. There is a posterior disc protrusion which is most prominent to the left of midline, and there is distortion the ventral thecal sac and narrowing of the left subarticular recess. There is no central stenosis. There are bilateral inferior foraminal disc protrusions, without definite exiting nerve root impingement. L3-L4: There is mild bilateral facet arthropathy. There is a posterior disc osteophyte complex extending into the left neural foramen with impingement on the exiting left L3 nerve root. There is no central stenosis. L4-L5: There is moderate severe left and moderate right facet arthropathy. There is a broad-based posterior disc protrusion which flattens the ventral thecal sac, but there is no central stenosis. There is a left foraminal disc protrusion with impingement on the exiting left L4 nerve root. L5-S1: There is moderate bilateral facet arthropathy. There is a broad-based posterior disc protrusion with flattening of the ventral thecal sac and there is mild narrowing of the subarticular recesses. There are right greater than left foraminal disc protrusions, and there is impingement on the exiting L5 nerve roots, more severely on the right. There is no central stenosis. IMPRESSION: 1. Slightly suboptimal study as the patient was unable to complete the exam. 2. At L5-S1 there is facet arthropathy and there is a broad-based posterior disc protrusion. There are right greater than left foraminal disc protrusions with impingement on the exiting L5 nerve roots. There is no central stenosis. 3. At L4-L5 there is facet arthropathy and there is a broad-based posterior disc protrusion. There is a left foraminal disc protrusion impinging on the exiting left L4 nerve root. There is no central stenosis. 4. At L3-L4 there is a posterior disc osteophyte complex extending into the left neural foramen with impingement on the exiting left L3 nerve root. There is no central stenosis. 5. At L1-L2 there is facet arthropathy and there is a posterior disc protrusion. There is a right foraminal disc protrusion impinging on the exiting right L1 nerve root. 09/29/22: XR LUMBOSACRAL SPINE FINDINGS: Dextroconvex scoliosis. The sagittal alignment is maintained. Vertebral body heights are maintained. No acute vertebral compression deformities are identified. Multilevel moderate-severity disc degenerative changes, with disc height loss, endplate osteophytes, sclerosis. Multilevel facet degeneration. SI joints are intact. No abnormal soft tissue calcification. IMPRESSION: Moderate-severe severe lumbar spondylosis. Dextroconvex scoliosis. No radiographic evidence of acute fracture. Assessment & Plan Assessment & Plan (1) Lumbar radicular syndrome: Code(s): M54.16 - Radiculopathy, lumbar region Plan Will schedule him for a right L5 transforaminal epidural steroid injection. Discussed the risks and benefits of the procedure with the patient in detail. All questions were answered. The patient is on board with the plan. I recommended performing stretching and strengthening exercises at home. He can also refer to L5-S1 pain relief exercise videos on YouTube. Justification for interventional therapy: ? Patient with average pain > 6/10 ? Patient has exhausted conservative therapy; participated in formal PT and is continuing home exercise program She has a prior history of substance use Suboxone. Scribed for Dr. Reddy by Shawn Paulino, chief medical technologist, on 02/15/2023. I, Dr. Reddy, have personally reviewed and agree with the information entered by the scribe. Coding Level of Care Code New Pt Level 4 (93180) Diagnoses Lumbar radicular syndrome M54.16
[2023-02-15 09:06] VITALS: PULSE 96; RESP 12; O2SAT 96; BMI 33.5
== END 2023-02-15 09:38 | disposition home or self-care (01) ==
PROVIDERS: PCP Family Medicine; Referring Provider Family Medicine; Visit Provider Internal Medicine
DX: M54.16 Radiculopathy, lumbar region (principal)
CPT/HCPCS: 99204

== ENCOUNTER → 2023-02-15 09:01 | Outpatient (BNVA) | payer MEDICAID, SELFPAY | PROVIDERS: PCP Family Medicine; Referring Provider Family Medicine; Visit Provider Internal Medicine | DX: M54.16 Radiculopathy, lumbar region (principal) | CPT/HCPCS: 99202 ==

== ENCOUNTER 2023-03-18 15:38 | Emergency (ER) | payer MEDICAID, SELFPAY ==
[2023-03-18 16:38] VITALS: BP 131/79; PULSE 84; RESP 18; TEMP 36.5; O2SAT 97; BMI 34.7
--- NOTE | 2023-03-18 16:39 | ED.GENADULT ---
HPI - General Adult General Chief complaint: Nausea/Vomiting/Diarrhea Stated complaint: Abd pain Time Seen by Provider: 03/18/23 23:52 Source: patient Mode of arrival: ambulatory Limitations: no limitations History of Present Illness HPI narrative: Patient history of anxiety having watery diarrhea all day today about 8 bowel movements with chronic right upper abdominal pain in the past with detail workup negative does have history of depression also. Stool is watery no blood no fever no chills no nausea no vomiting Related Data Home Medications Medication Instructions Recorded Confirmed buprenorphine 8 mg-naloxone 2 mg 2 film sublingual DAILY 12/20/20 02/15/23 sublingual film (Suboxone) acetaminophen 650 mg 650 mg PO Q8H PRN fever 04/11/21 02/15/23 tablet,extended release (Arthritis Pain Relief (acetaminophen) ER) melatonin 5 mg tablet 10 mg PO BEDTIME PRN insomnia 04/11/21 02/15/23 sildenafil 50 mg tablet (Viagra) 50 mg PO DAILY PRN 04/11/21 02/15/23 cholecalciferol (vitamin D3) 50 50 mcg PO DAILY 10/30/21 02/15/23 mcg (2,000 unit) capsule fluticasone propionate 50 2 spray intranasal DAILY 10/30/21 02/15/23 mcg/actuation nasal spray,suspension albuterol sulfate 90 mcg/actuation 2 puff inhalation Q6H PRN 06/05/22 02/15/23 aerosol inhaler varenicline 1 mg tablet 1 mg PO BID 06/05/22 02/15/23 Previous Rx's Medication Instructions Recorded ibuprofen 600 mg tablet 600 mg PO Q8H PRN pain #15 tabs 08/09/20 fluticasone 250 mcg-salmeterol 50 1 inh inhalation BID copd 30 days 10/30/21 mcg/dose blistr powdr for #60 ea inhalation (Advair Diskus) dicyclomine 10 mg capsule 10 mg PO TID PRN abdominal pain 03/19/23 #14 caps Allergies Allergy/AdvReac Type Severity Reaction Status Date / Time No Known Allergies Allergy Verified 03/19/23 00:03 [No Known Allergies*] Review of Systems Review of Systems: Yes all other systems are reviewed and are negative PMFSH Past Medical History Onset Date is defined in the Problem List Problems that require an onset date and time if occurred within 24 hrs of arrival to the ED Aortic Dissection and Rupture; Neurologic impairment; Cardiopulmonary Arrest; Endotracheal Intubation; Insertion or Replacement of Mechanical Circulatory Assist Device Medical History Depression with anxiety Personal history of nicotine dependence History of heroin abuse Mediastinal adenopathy COPD (chronic obstructive pulmonary disease) Smoker Surgical History History of colonoscopy (~2019) Social History Social History Alcohol intake: never Patient Tobacco Use Status: Current everyday Tobacco user Cigarettes Per Day: 1 Years Smoked: 42 Smoked in Last 30 Days: No Use of substances other than those prescribed or required for medical reasons: No Advance Directives: No Advance Directives Information Provided: Yes Physical Exam ED Vital Signs: Vital Signs - 24 hr 03/18/23 16:38 03/18/23 23:58 Temperature 97.7 F 98.5 F Pulse Rate 84 85 Respiratory Rate 18 18 Blood Pressure 131/79 141/89 H Pulse Oximetry 97 96 Oxygen Delivery Method Room Air Room Air BMI result Body Mass Index 34.7 Appearance: Alert. Oriented X3. No acute distress. Eyes: No pallor or icterus ENT: Pharynx normal. Oral Mucosa moist Neck: Normal inspection. Neck supple. CVS: Normal heart rate and rhythm. Pulses normal. Respiratory: No respiratory distress. Equal air entry bilateral, Abdomen: Soft, nontender Bowel sounds are present, no mass palpable, no CVA tenderness Skin: Skin warm and dry. Normal skin color. Normal skin turgor. Neuro: Oriented X 3. Course Course Course Narrative: RME performed by Lulu Enamorado PA-C. Patient is a 57 year old assigned male at presenting to the emergency department with abdominal pain. Detailed physical exam and review of systems are deferred to the tile applicator. Labs and swabs ordered. Patient placed back in the waiting room pending room availability and results. Medications Administered Discontinued Medications Generic Name Dose Route Start Last Admin Trade Name Freq PRN Reason Stop Dose Admin Dicyclomine HCl 20 mg 03/19/23 00:13 03/19/23 00:51 Dicyclomine Hcl 10 Mg Capsule PO 03/19/23 00:14 20 mg ONCE ONE Administration Loperamide HCl 2 mg 03/19/23 00:13 03/19/23 00:51 Loperamide Hcl 2 Mg Capsule PO 03/19/23 00:14 2 mg ONCE ONE Administration Medical Decision Making Medical Decision Making [facility] Narrative: Patient with diffuse enteritis with diffuse abdominal cramps with previous workups negative discharge patient home on [place] Lab Data [facility] Lab Attestation statement: I reviewed the patient's lab results. 03/18/23 16:46 03/18/23 16:46 Labs: Lab Results 03/18/23 03/19/23 Range/Units 16:46 00:05 WBC 8.8 (4.8-10.8) X10*3/uL RBC 4.82 (4.60-5.80) X10*6/uL Hgb 14.2 (14.0-18.0) g/dl Hct 41.7 L (42.0-52.0) % MCV 86.5 (80.0-98.0) fL MCH 29.5 (27.0-33.0) pg MCHC 34.1 (31.0-36.0) g/dl RDW 11.9 (11.0-16.0) % Plt Count 293 (160-400) X10*3/uL MPV 9.3 L (9.4-12.4) fL Immature Gran % (Auto) 0.2 (0.0-0.4) % Neut % (Auto) 59.0 (45-73) % Lymph % (Auto) 33.7 (20-40) % [place] % (Auto) 6.5 (2-11) % Eos % (Auto) 0.3 (0-4) % Baso % (Auto) 0.3 (0-2) % Lymph # (Auto) 3.0 (1.2-4.9) X10*3/uL [place] # (Auto) 0.6 (0.1-1.2) X10*3/uL Eos # (Auto) 0.0 (0.0-0.4) X10*3/uL Baso # (Auto) 0.0 (0.0-0.2) X10*3/uL Abs Immat Gran (auto) 0.02 (0.00-0.03) X10*3/uL Absolute Neuts (auto) 5.2 (2.0-8.3) x10*3/uL Absolute Nucleated RBC 0.000 (0.0-0.012) X10*3/uL Nucleated RBC % (auto) 0.0 (0.0-0.2) /100WBC Sodium 139 (135-145) mmol/L Potassium 4.3 (3.3-5.1) mmol/L Chloride 99 (96-108) mmol/L Carbon Dioxide 29 (22-29) mmol/L Anion Gap 15 (12-20) BUN 10 (9-16) mg/dL Creatinine 0.84 (0.5-1.4) mg/dL Estim Creat Clear Calc 106.0 Estimated GFR > 60 Random Glucose 85 (60-115) mg/dL Calcium 9.7 (8.4-10.2) mg/dL Magnesium 1.9 (1.6-2.6) mg/dL Total Bilirubin 0.6 (0.0-1.0) mg/dL AST 31 (5-37) U/L ALT 31 (0-40) U/L Alkaline Phosphatase 67 (39-117) U/L Total Protein 8.4 H (6.5-8.0) g/dL Albumin 4.5 (3.5-5.0) g/dL Urine Color Dark Yellow Urine Appearance Clear Urine pH 5.5 (5.0-9.0) Ur Specific [place] 1.025 (1.005-1.025) Urine Protein Trace (Neg-Trace) mg/dL Urine Glucose (UA) Negative (Negative) mg/dL Urine Ketones Trace (Negative) mg/dL Urine Blood Trace H (Negative) Urine Nitrite Negative (Negative) Ur Leukocyte Esterase Negative (Negative) Urine RBC 6-10 H (0-2) /HPF Urine WBC 0-5 (0-5) /HPF Ur Squamous Epith Cells 0-2 (0-2) /HPF Urine Bacteria None Seen (None Seen) Hyaline Casts 0-2 (0-2) /LPF Influenza Type A (PCR) NEGATIVE (Negative) Influenza Type B (PCR) NEGATIVE (Negative) RSV RNA Qual (PCR) NEGATIVE (Negative) SARS-CoV-2 RNA (RT-PCR) NEGATIVE (Negative) Discharge Plan Discharge Clinical Impression: Diarrhea, Anxiety Patient Disposition: Home, Self-Care Instructions: Acute Diarrhea (ED), Anxiety (ED) Additional Instructions: Drink plenty of fluid Medicine for abdominal cramps and diarrhea as prescribed Prescriptions: New dicyclomine 10 mg capsule 10 mg PO TID PRN (Reason: abdominal pain) Qty: 14 0RF No Action ibuprofen 600 mg tablet 600 mg PO Q8H PRN (Reason: pain) Qty: 15 0RF buprenorphine-naloxone [Suboxone] 8-2 mg film 2 film sublingual DAILY Rx Instructions: place 1 strip/tab under (each) side of tongue melatonin 5 mg tablet 10 mg PO BEDTIME PRN (Reason: insomnia) acetaminophen [Arthritis Pain Relief (acetam)] 650 mg tablet extended release 650 mg PO Q8H PRN (Reason: fever) sildenafil [Viagra] 50 mg tablet 50 mg PO DAILY PRN albuterol sulfate 90 mcg/actuation HFA aerosol inhaler 2 puff inhalation Q6H PRN varenicline 1 mg tablet 1 mg PO BID cholecalciferol (vitamin D3) 50 mcg (2,000 unit) capsule 50 mcg PO DAILY fluticasone propionate 50 mcg/actuation spray,suspension 2 spray intranasal DAILY fluticasone propion-salmeterol [Advair Diskus] 250-50 mcg/dose blister with device 1 inh inhalation BID 30 Days Qty: 60 4RF
[2023-03-18 17:00] LABS: MANUAL DIFF FLAG NO
[2023-03-18 17:02] LABS: Basophils Percent Auto 0.3 % (0-2); Eosinophils Percent Auto 0.3 % (0-4); Hematocrit 41.7 % (42.0-52.0); Hemoglobin 14.2 g/dl (14.0-18.0); Imm Gran Abs Auto 0.02 X10*3/uL (0.00-0.03); Imm Gran Pct Auto 0.2 % (0.0-0.4); Lymphocytes Percent Auto 33.7 % (20-40); Mean Corpuscular HGB Conc 34.1 g/dl (31.0-36.0); Mean Corpuscular Hemoglobin 29.5 pg (27.0-33.0); Mean Corpuscular Volume 86.5 fL (80.0-98.0); Mean Platelet Volume 9.3 fL (9.4-12.4); Monocytes Absolute Auto 0.6 X10*3/uL (0.1-1.2); Monocytes Percent Auto 6.5 % (2-11); Neutrophils Absolute Auto 5.2 x10*3/uL (2.0-8.3); Platelet Count 293 X10*3/uL (160-400); Red Blood Count 4.82 X10*6/uL (4.60-5.80); Red Cell Distribution Width 11.9 % (11.0-16.0); White Blood Count 8.8 X10*3/uL (4.8-10.8)
[2023-03-18 17:21] LABS: Alanine Aminotransferase 31 U/L (0-40); Albumin Level 4.5 g/dL (3.5-5.0); Alkaline Phosphatase 67 U/L (39-117); Anion Gap 15 (12-20); Aspartate Amino Transferase 31 U/L (5-37); Bilirubin Total 0.6 mg/dL (0.0-1.0); Blood Urea Nitrogen 10 mg/dL (9-16); Calcium 9.7 mg/dL (8.4-10.2); Carbon Dioxide 29 mmol/L (22-29); Chloride 99 mmol/L (96-108); Estimated Glomerular Filt Rate > 60; Glucose Random 85 mg/dL (60-115); Magnesium 1.9 mg/dL (1.6-2.6); Potassium 4.3 mmol/L (3.3-5.1); Sodium 139 mmol/L (135-145); Total Protein 8.4 g/dL (6.5-8.0)
[2023-03-18 17:40] LABS: Influenza A PCR NEGATIVE (Negative); Influenza B PCR NEGATIVE (Negative); Resp Syncy Virus RNA Qual PCR NEGATIVE (Negative); SARS COV2 PCR INHOUSE NEGATIVE (Negative)
[2023-03-18 23:58] VITALS: BP 141/89; PULSE 85; RESP 18; TEMP 36.9; O2SAT 96
--- NOTE | 2023-03-19 00:06 | PC.NURSE ---
at [facility] for primary eval.
[2023-03-19 00:12] LABS: Appearance Urine Clear; Color Urine Dark Yellow; Glucose Urine UA Negative (Negative); Leukocyte Esterase Urine Negative (Negative); Nitrite Urine Negative (Negative); PH 5.5 (5.0-9.0); Specific Gravity - Urine 1.025 (1.005-1.025); UMIC TRIGGER UACC YES; Urine Blood Trace (Negative); Urine Ketones Trace mg/dL (Negative); Urine Protein Trace mg/dL (Neg-Trace)
[2023-03-19 00:14] LABS: Bacteria Urine None Seen (None Seen); Hyaline Casts Urine 0-2 /LPF (0-2); Squamous Epithelial Cell Urine 0-2 /HPF (0-2); WBC Urine 0-5 /HPF (0-5)
[2023-03-19] MEDS: Dicyclomine HCl 10 MG CAPSULE 20 MG PO (00:51)
[2023-03-19] MEDS: Loperamide HCl 2 MG CAPSULE PO (00:51)
--- NOTE | 2023-03-19 00:52 | PC.NURSE ---
Medicated per MAR, awaiting discharge paperwork.
== END 2023-03-19 01:22 | disposition home or self-care (01) ==
PROVIDERS: Physician Assistant Medical; Emergency Provider Internal Medicine
DX: R10.9 Unspecified abdominal pain (principal); R19.7 Diarrhea, unspecified; F41.1 Generalized anxiety disorder; F43.0 Acute stress reaction; Z20.822 Contact with and (suspected) exposure to COVID-19; Z20.828 Contact with and (suspected) exposure to other viral communicable diseases
CPT/HCPCS: 0241U; 80053; 81001; 83735; 85025; 99283; 99284

== ENCOUNTER → 2023-04-05 12:05 | Outpatient (REF) | payer MEDICAID, SELFPAY ==
--- NOTE | 2023-04-05 12:08 | CA_ITS ---
Transthoracic Echocardiogram Patient (Last, First, Middle): [place] Rodrigues V Gender: Male Date of : 1965 Age: 57 Procedure Date: 04/05/2023 Procedure Type: Transthoracic Echocardiogram Location: OP Height: 170.18 cm Weight: 97.52 kg BSA: 2.09 m2 Heart Rate: bpm BP: 124 / 68 mmHg Recreation Therapy Teacher: Referring MD: Randa Godinez DO Symptoms: CHRONIC FATIGUE R53.83 Study Quality: Fair ECG Rhythm: Sinus Conclusions: - Normal left ventricular size, thickness, and systolic function. The visually estimated ejection fraction is between 55-60%. - Normal right ventricular cavity size and systolic function. Findings Left Ventricle Normal left ventricular size, thickness, and systolic function. The visually estimated ejection fraction is between 55-60%. Regional wall motion abnormalities can not be excluded due to suboptimal endocardial definition. Diastolic function is indeterminate on the basis of available data. Right Ventricle Normal right ventricular cavity size and systolic function. Atria The left atrium is normal in size. Aortic Valve The aortic valve structure and function is likely normal. There is no aortic valve stenosis. There is no aortic valve regurgitation. Mitral Valve The mitral valve appears normal. There is no mitral valve regurgitation. There is no mitral valve stenosis. Pulmonic Valve The pulmonic valve is likely normal. Tricuspid Valve Normal tricuspid valve structure. There is no tricuspid valve regurgitation. Normal right atrial pressure. There is no evidence of pulmonary hypertension. Great Vessels All visible segments of the aorta are normal in size. Venous The inferior vena cava is normal in size and collapses greater than 50% with inspiration. Pericardium/Pleural There is no evidence of pericardial effusion. Prior Study Comparison No prior study available for comparison. Measurements 2D Linear Measurements IVSd: 0.95 0.6-0.9/0.6-1.0 cm LVIDd: 3.97 3.9-5.3/4.2-5.9 cm LVIDd Index: 1.90 2.4-3.2/2.2-3.1 cm/m2 LVIDs: 2.45 2.0-3.6 cm LVPWd: 0.95 0.7-1.1 cm Ao Root: 3.60 2.1-3.5 cm LA Diam: 2.50 2.7-3.8/3.0-4.0 cm LAIDs Index: 1.20 1.5-2.3 cm/m2 LV Mass: 145.06 67-162/88-224 g LV Mass Index: 69.41 43-95/49-115 g/m2 LVOT Diam: 2.30 3.0+(-)1.3 cm 2D Systolic Function EF 4C: 48.60 >55% EF 2C: 50.50 >55% EF BiP: 49.50 >55% Mitral Valve MV Pk E: 0.54 MV PK A: 0.74 MV Decel Time: 97.00 E/A: 0.70 E'Lateral: 3.81 E'Medial: 5.77 E/E' Med: 9.40 E/E' Lat: 14.20 PHT: 29.00 MVA PHT: 7.59 Decel [place]: 5.54 Aortic Valve AoV Pk Anjum: 0.96 AoV Mn Anjum: 0.60 AoV VTI: 0.21 AoV Pk Grad: 4.00 Aov Mn Grad: 2.00 BROCK Cont.VTI: 3.25 LVOT LVOT Pk Anjum: 0.75 LVOT Mn Anjum: 0.44 LVOT VTI: 0.17 LVOT Pk Grad: 2.00 LVOT Mn Grad: 1.00 LVOT Diam: 2.30 LVOT Area: 4.15 Diastolic Function MV Pk E: 0.54 MV Pk A: 0.74 E/A: 0.70 E'Medial: 5.77 E/E' Med: 9.40 E' Laterial: 3.81 E/E' Lat: 14.20 Right Ventricle TAPSE (mm): 22.00 TVS' Anjum: 10.00 Tricuspid Valve TR Pk Anjum: 2.00 TR Pk Grad: 16.00 RA Press: 3.00 RVSP: 19.00 Great Vessels Aorta Ao Root-2D: 3.60 2.0-3.7 cm Ao Asc: 3.40 2.1-3.4 cm Pulmonary Valve PV Pk Anjum: 0.68 Peak PV Grad: 2.00 Updated in Other Vendor System with Status of Final Deepak Lacey MD electronically signed on 04/06/2023 6:53:28 PM with status of Final
== END ==
LOC: HO.CARD 12:05
PROVIDERS: Visit Provider Family Medicine
DX: R53.83 Other fatigue (principal)
CPT/HCPCS: 93306

== ENCOUNTER → 2023-04-05 12:08 | Outpatient (BNV) | payer MEDICAID, SELFPAY | PROVIDERS: Visit Provider Internal Medicine Cardiovascular Disease | DX: R53.83 Other fatigue (principal) | CPT/HCPCS: 93306 ==

== ENCOUNTER 2023-04-18 06:16 | Outpatient (REF) | payer MEDICAID, SELFPAY ==
--- NOTE | ~2023-04-18 | FL_ITS ---
EXAMINATION: XR FLUOROSCOPY WITH IMAGES CLINICAL INFORMATION: Radiculopathy lumbar region. COMPARISON: MR lumbar spine 11/23/2022 TECHNIQUE: Fluoroscopy Supervised By: Dr. Reddy. Fluoroscopy Time: 0.2 minutes Cumulative Dose: 10.2 mGy-cm DAP: 0.782 Gy-cm2 Images: 3 FINDINGS: Fluoroscopic guidance was provided for procedure performed by Dr. Reddy. Catheter projects at the level of the lumbar spine with dye in the region of the tip. Please refer to operative report for more detailed evaluation. FL/FL guidance in treatment room IMPRESSION: Fluoroscopic guidance was provided for procedure performed by Dr. Reddy.
== END 2023-04-18 06:17 | disposition home or self-care (01) ==
LOC: CF 06:16
PROVIDERS: Visit Provider Internal Medicine
DX: M54.16 Radiculopathy, lumbar region (principal)
CPT/HCPCS: 64483; J1100; Q9967

== ENCOUNTER 2023-04-18 15:01 | Outpatient (AMB) | payer MEDICAID, SELFPAY ==
--- NOTE | 2023-04-18 15:05 | MHC.OFFVIS ---
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 Denies any recent cough, cold, infection, fever or other significant changes in medical history since last office visit. PFSH Medical History Depression with anxiety Personal history of nicotine dependence History of heroin abuse Mediastinal adenopathy COPD (chronic obstructive pulmonary disease) Smoker Surgical History History of colonoscopy (~2018) Social History Alcohol intake: never Patient Tobacco Use Status: Current everyday Tobacco user Cigarettes Per Day: 1 Years Smoked: 42 Physical Exam Vital Signs: Last Vital Signs Pulse 88 04/18/23 16:03 Resp 16 04/18/23 16:03 BP 130/78 04/18/23 16:03 Pulse Ox 96 04/18/23 16:03 Oxygen Delivery Method Room Air 04/18/23 16:03 BMI result Body Mass Index 33.4 Office Procedures Details: Transforaminal epidural steroid injection, Right L5 After obtaining written consent, pre-procedure blood pressure and heart rate were stable and recorded in the nursing record. The patient was placed in the prone position on the fluoroscopy table. The lumbosacral area was prepped with chloraprep, allowed to dry and draped in sterile fashion. Using fluoroscopy, the skin overlying our target was anesthetized with 0.5% lidocaine. A 22 gauge 3.5 inch spinal needle was advanced to the safe triangle in the upper pole of the right L5 foramen. No paresthesias were elicited with needle placement and aspiration was negative for blood and CSF. Correct needle position was confirmed with approximately 1 ml contrast dye (Omnipaque 180 mg/ml) injected under real-time fluoroscopy. No evidence of vascular or intrathecal uptake was seen and there was both epidural and peripheral spread of the contrast agent. 10 mg dexamethasone plus 1 ml containing 0.5% lidocaine was slowly injected. The needle was flushed and removed. the same procedure was repeated for the remaining levels. The skin was cleansed and a sterile bandages were applied. The patient tolerated the procedure well and no complications were encountered. Following the procedure the patient's vital signs were stable. The patient was discharged home in good condition with post-procedural instructions. Time Out: Immediately prior to the procedure, the following was verbally confirmed that there is a signed consent form and that the correct patient, planned procedure, site and side are consistent with documentation and that necessary equipment and/or blood products are available prior to the start of the case. Complications: none EBL: <5 cc 61260 - Lumbar/Sacral Procedure code (CPT) selection complete Assessment & Plan Assessment & Plan (1) Lumbar radicular syndrome: Code(s): M54.16 - Radiculopathy, lumbar region Plan Patient is status post right L5 TFESI. Patient tolerated procedure well and was discharged home in stable condition with discharge instructions. All questions were answered. We will follow-up via telephone or in clinic to assess response to therapy. A follow-up appointment was made during today's visit. Orders: Orders FL guidance in treatment room Today M54.16 - Radiculopathy, lumbar region Coding Level of Care Code Procedure Only Diagnoses Lumbar radicular syndrome M54.16 CPT Codes Transforaminal Epidural Steroid Inj - TESI 3: 52008 - Lumbar/Sacral ([id number])
[2023-04-18 15:06] VITALS: BP 112/58; PULSE 87; O2SAT 97; BMI 33.4
[2023-04-18 16:03] VITALS: BP 130/78; PULSE 88; RESP 16; O2SAT 96; BMI 33.4
== END 2023-04-18 15:58 | disposition home or self-care (01) ==
LOC: HO.PMCPRC 15:01
PROVIDERS: PCP Family Medicine; Visit Provider Internal Medicine
DX: M54.16 Radiculopathy, lumbar region (principal)
CPT/HCPCS: 64483

== ENCOUNTER → 2023-05-01 13:08 | Outpatient (REF) | payer MEDICAID, SELFPAY | LOC: HO.SL 13:08 | PROVIDERS: Visit Provider Family Medicine | DX: R53.83 Other fatigue (principal); G47.33 Obstructive sleep apnea (adult) (pediatric) | CPT/HCPCS: 95806 ==

== ENCOUNTER → 2023-05-01 19:00 | Outpatient (BNV) | payer MEDICAID, SELFPAY | PROVIDERS: Visit Provider Internal Medicine | DX: G47.33 Obstructive sleep apnea (adult) (pediatric) (principal) | CPT/HCPCS: 95806 ==

== ENCOUNTER 2023-05-31 10:40 | Outpatient (AMB) | payer MEDICAID, SELFPAY ==
--- NOTE | 2023-05-31 10:50 | A.OFFVIS_ITS ---
Intake Vital Signs 05/31/23 10:51 Height 5 ft 7 in Weight 209 lb 7.026 oz BMI 32.8 BP 133/86 Blood Pressure Location Lt brachial Position Sitting Pulse 88 Intake Visit Reasons: Abdominal pain Intake Note: [place] presents in the office for abdominal pains. CC: He notices that he has to run to the bathroom when he eats things like pistachio and nuts and he is not sure what that is for. Allergies No Known Allergies [No Known Allergies*] Allergy (Verified 05/31/23 10:51) HPI Abdominal pain HPI Details 57 yr old patient w/ hx of emphysema, sm oking here for f/u for abn imaging RECAP: He has had RUQ and RLQ pain for few years at least no radiation denies nausea or vomiting denies constiaption or diarrhea no blood in stool, did have blood on wiping a year or two ago, colonoscopy 2018 with int hemorrhoids, and tics, no polyps or masses can be 5-6/10 in severity no exacerbating factors, comes and goes without any reason food does not affect weight is stable, appetite is good on suboxone for many years Imaging: MRI: 2021- midl dilated cbd, intrahepatic ducts, no lesions or stones seen CT 09/2021- dilated CBD and minimal PD dilation, emphysema, no masses or fillin defects, LABS: LFT 03/2023--normal INTERIM: no upper abdominal pain no nausea or vomiting still taking suboxone, trying to stop smoking as well if takes nuts he notes having urgency after 1 hr --he is ok with other food items he stop smoking chris last few weeks, Medical History COPD (chronic obstructive pulmonary disease) Depression with anxiety History of heroin abuse Mediastinal adenopathy Personal history of nicotine dependence Smoker Surgical History History of colonoscopy (~2018) Social History Alcohol intake: never Patient Tobacco Use Status: ex smoker -3 weeks Cigarettes Per Day: 7 Years Smoked: 42 no IV drug use or cocaine use, ex drug use FH: denies liver cancer, or pancreatic ca hx in family ROS; Constitutional : No Weight loss, No Fever, No Chills ENT/Mouth : No sore throat, No Rhinorrhea Eyes: No Swelling, No Redness Cardiovascular : No Chest Pain, No SOB, No Edema Respiratory : No Cough, No Sputum, No Wheezing Gastrointestinal : see HPI Genitourinary : NO Dysuria, No Urinary Frequency, No Hematuria, No Urgency Musculoskeletal : No joint pain, No Myalgias, No Joint Swelling Skin : No Skin Lesions, No rash Neuro : No Weakness, No Numbness, No Dizziness, No Headache Psych : No Anxiety/Panic, No Depression Heme/Lymph: No Bruising, No Lymphadenopathy Endocrine : No Polyuria, No Polydipsia All other systems reviewed and are negative. EXAM: GENERAL: The patient is well developed and nontoxic. VITAL SIGNS:see workflow HEENT: Nonicteric sclerae, PERRLA, EOMI. Oropharynx clear. Moist mucous membranes. Conjunctivae appear well perfused. No thyroid mass. CHEST: Chest wall is nontender. HEART: Regular rate and rhythm without murmurs. LUNGS: Clear to auscultation bilaterally but reduced BS bilaterally ABDOMEN: Soft, positive bowel sounds, nontender, no organomegaly.no flank tenderness SKIN: No rash, no excessive bruising, petechiae, or purpura. NEUROLOGIC: Cranial nerves II-XII intact without motor/sensory deficit. A/P: 1/ Abn imaging with dilated CBD prob fro m Suboxone use, with nml LFT< no mass lesions on last MRI 2/ Urgency with nuts, may have food sara rgy Plan: 1/ check RAST 2/ US for surveillance of CBD PFSH Medical History Depression with anxiety Personal history of nicotine dependence History of heroin abuse Mediastinal adenopathy COPD (chronic obstructive pulmonary disease) Smoker Surgical History History of colonoscopy (~2019) Social History Alcohol intake: never Patient Tobacco Use Status: Current everyday Tobacco user Cigarettes Per Day: 1 Years Smoked: 42 Physical Exam Vital Signs: Last Vital Signs Pulse 88 05/31/23 10:51 BP 133/86 05/31/23 10:51 BMI result Body Mass Index 32.8 Assessment & Plan Assessment & Plan (1) Common bile duct dilatation: Code(s): K83.8 - Other specified diseases of biliary tract Plan: see above Orders: Orders US abdomen good w elastography Today K83.8 - Other specified diseases of biliary tract Coding Level of Care Code Est Pt Level 3 (89806) Diagnoses Common bile duct dilatation K83.8
[2023-05-31 10:51] VITALS: BP 133/86; PULSE 88; BMI 32.8
== END 2023-05-31 11:30 | disposition home or self-care (01) ==
PROVIDERS: PCP Family Medicine; Visit Provider Internal Medicine Gastroenterology
DX: K83.8 Other specified diseases of biliary tract (principal)
CPT/HCPCS: 99213

== ENCOUNTER → 2023-05-31 10:40 | Outpatient (BNVA) | payer MEDICAID, SELFPAY | PROVIDERS: PCP Family Medicine; Visit Provider Internal Medicine Gastroenterology | DX: K83.8 Other specified diseases of biliary tract (principal) | CPT/HCPCS: 99212 ==

== ENCOUNTER 2023-06-05 15:56 | Outpatient (REF) | payer MEDICAID, SELFPAY | END 2023-06-05 15:57 | disposition home or self-care (01) | LOC: HO.HHCL 15:56 | PROVIDERS: Visit Provider Internal Medicine Gastroenterology | DX: Z91.018 Allergy to other foods (principal) | CPT/HCPCS: 36415; 86003 ==

== ENCOUNTER 2023-06-14 09:47 | Outpatient (REF) | payer OTHER, SELFPAY ==
--- NOTE | ~2023-06-14 | US_ITS ---
EXAMINATION: US ABDOMEN LIMITED WITH LIVER ELASTOGRAPHY CLINICAL INFORMATION: Dilatation of the common bile duct COMPARISON: Previous ultrasound most recent August 2022, MR of the abdomen February [address] of the abdomen most recent September 2021 TECHNIQUE: Real-time imaging of the abdominal viscera. Noninvasive ultrasound liver fibrosis assessment is performed using Cornelia ElastPQ point quantification shear wave elastography (2D-SWE) with a C5-2 MHz transducer. Multiple elastography samples are obtained. FINDINGS: PANCREAS: Not well-visualized due to overlying bowel gas. Main pancreatic duct is slightly dilated measuring 4 mm. LIVER: Liver echotexture is increased. Liver contour is normal. No focal liver lesion the liver is enlarged. There are dilated intrahepatic bile ducts. The right lobe measures 20 cm in length. The left lobe measures 10 cm in length. Portal flow is normal/hepatopedal Shear wave liver elastography median stiffness is 1.7 m/s (reference: normal median stiffness is 1.3 m/s or less). IQR/median stiffness to assess sampling precision is 0.1 (reference: good quality data set is IQR/median stiffness of 0.15 or less). GALLBLADDER: Ring down artifact seen injection of all 4 of mild adenomyomatosis of the gallbladder wall. The gallbladder is upper normal in size.. COMMON BILE DUCT: Dilated measuring 1.3 cm in diameter. RIGHT KIDNEY: Normal. No hydronephrosis. No renal calculi or focal parenchymal lesions. The kidney measures 10 cm in maximum dimension. FREE FLUID: None. US/US abdomen good w elastography IMPRESSION: 1. Impression: Enlarged echogenic liver. Intra and extrahepatic biliary duct dilatation and dilatation of the main pancreatic duct not appreciably changed from prior ultrasound August 2022. Upper normal-size gallbladder and question mild adenomyomatosis of the gallbladder wall. 2. Liver elastography: Borderline elevated liver stiffness. Adequate liver sampling. REFERENCE: Society of Radiologists in Ultrasound Liver Stiffness Thresholds (2020): LIVER STIFFNESS THRESHOLDS: *Liver Stiffness equal or less than 1.3 m/s: High probability of being normal. *Liver Stiffness less than 1.7 m/s: In the absence of other known clinical signs, rules out compensated advanced chronic liver disease. *Liver Stiffness 1.7-2.1 m/s: Suggestive of compensated advanced chronic liver disease but need further test for confirmation. *Liver Stiffness over 2.1 m/s: Rules in compensated advanced chronic liver disease. *Liver Stiffness over 2.4 m/s: Suggestive of clinically significant portal hypertension. QUALITY OF DATA SET: *IQR/Median value equal or less than 0.15 implies a quality data set. *IQR/Median value over 0.15 implies a poor quality data set. SIGNIFICANT CHANGE FROM PRIOR EXAM: Significant change if liver stiffness measurement is 10% or greater from prior exam. OTHER CONSIDERATIONS: The stage of liver fibrosis may be overestimated in the setting of acute hepatitis, liver inflammation, elevated liver function tests, hepatic vascular congestion, obstructive cholestasis, non-fasting state, and infiltrative diseases such as amyloidosis and lymphoma. In some patients with NAFLD, the liver stiffness thresholds for compensated advanced chronic liver disease may be lower. In causes other than viral hepatitis and NAFLD, liver stiffness thresholds are not well established.
== END 2023-06-14 09:48 | disposition home or self-care (01) ==
LOC: HO.US 09:47
PROVIDERS: PCP Family Medicine; Visit Provider Internal Medicine Gastroenterology
DX: K83.8 Other specified diseases of biliary tract (principal)
CPT/HCPCS: 76705; 76981

== ENCOUNTER 2023-10-25 09:46 | Outpatient (REF) | payer OTHER, SELFPAY ==
[2023-10-25 11:06] LABS: MANUAL DIFF FLAG NO
[2023-10-25 11:19] LABS: Basophils Percent Auto 0.6 % (0-2); Eosinophils Absolute Auto 0.2 X10*3/uL (0.0-0.4); Eosinophils Percent Auto 2.8 % (0-4); Hematocrit 41.8 % (42.0-52.0); Hemoglobin 14.4 g/dl (14.0-18.0); Imm Gran Abs Auto 0.01 X10*3/uL (0.00-0.03); Imm Gran Pct Auto 0.2 % (0.0-0.4); Lymphocytes Absolute Auto 2.5 X10*3/uL (1.2-4.9); Lymphocytes Percent Auto 39.6 % (20-40); Mean Corpuscular HGB Conc 34.4 g/dl (31.0-36.0); Mean Corpuscular Hemoglobin 29.9 pg (27.0-33.0); Mean Corpuscular Volume 86.9 fL (80.0-98.0); Mean Platelet Volume 10.1 fL (9.4-12.4); Monocytes Absolute Auto 0.5 X10*3/uL (0.1-1.2); Neutrophils Absolute Auto 3.1 x10*3/uL (2.0-8.3); Neutrophils Percent Auto 48.8 % (45-73); Platelet Count 292 X10*3/uL (160-400); Red Blood Count 4.81 X10*6/uL (4.60-5.80); Red Cell Distribution Width 12.1 % (11.0-16.0); White Blood Count 6.4 X10*3/uL (4.8-10.8)
[2023-10-25 11:31] LABS: Estimated Average Glucose 103 mg/dL; Hemoglobin A1c % 5.2 % (<6.0)
[2023-10-25 11:57] LABS: Prostate Specific Antigen Scr 0.58 ng/mL (<0.05-4.0)
[2023-10-25 14:15] LABS: Alanine Aminotransferase 67 U/L (0-40); Albumin Level 4.5 g/dL (3.5-5.0); Alkaline Phosphatase 75 U/L (39-117); Anion Gap 14 (12-20); Aspartate Amino Transferase 60 U/L (5-37); Bilirubin Direct 0.1 mg/dL (0.0-0.5); Bilirubin Total 0.6 mg/dL (0.0-1.0); Blood Urea Nitrogen 9 mg/dL (9-16); Calcium 9.6 mg/dL (8.4-10.2); Carbon Dioxide 26 mmol/L (22-29); Chloride 105 mmol/L (96-108); Cholesterol 201 mg/dL (<200); Estimated Glomerular Filt Rate > 60; Glucose Random 90 mg/dL (60-115); HDL Cholesterol 44 mg/dL (>40); LDL Cholesterol Calculated 107 mg/dL (<100); Potassium 4.4 mmol/L (3.3-5.1); Sodium 141 mmol/L (135-145); Thyroid Stimulating Hormone 0.59 uIU/mL (0.32-4.0); Total Protein 8.3 g/dL (6.5-8.0); Triglycerides 252 mg/dL (<150); Vitamin D 25-OH Total 27.5 ng/mL (>30)
[2023-10-26 04:27] LABS: HBS Num1 0.74 mIU/mL (0-7.99); HBsAGNum1 0.28 S/CO (0.00-0.99); HIV AB/AG Nonreactive (Nonreactive); HIV Num 1 0.05 S/CO (0.00-0.99); Hepatitis B Surface Antigen Negative (Negative); ~HepC Num1 0.78 S/CO (0.00-0.79); ~Hepatitis B Surface Antibody NONREACTIVE (Nonreactive); ~Hepatitis C Antibody Nonreactive (Nonreactive)
[2023-10-28 11:18] LABS: RPR Rapid Plasma Reagin NON-REACTIVE (NON-REACTIVE)
[2023-10-29 12:44] LABS: Alpha Fetoprotein 2.9 ng/mL (<6.1)
== END 2023-10-25 09:47 | disposition home or self-care (01) ==
LOC: HO.HHCL 09:46
PROVIDERS: Visit Provider Family Medicine
DX: Z00.00 Encounter for general adult medical examination without abnormal findings (principal); R53.83 Other fatigue; K76.0 Fatty (change of) liver, not elsewhere classified
CPT/HCPCS: 36415; 80048; 80061; 80076; 82105; 82306; 83036; 84153; 84439; 84443; 85025; 85027; 86592; 86706; 86803; 87340; 87389

== ENCOUNTER 2023-11-13 18:26 | Emergency (ER) | payer OTHER, SELFPAY ==
--- NOTE | ~2023-11-13 | XR_ITS ---
EXAMINATION: XR CHEST CLINICAL INFORMATION: Chest pain COMPARISON: Chest pain 10/02/22 TECHNIQUE: 2 views of the chest were obtained. FINDINGS: No significant abnormality is noted involving the heart, lungs, mediastinum, bony thorax or soft tissues. XR/XR chest 2V IMPRESSION: Unremarkable examination. Electronically signed by: Parisa Vega MD 11/13/2023 07:40 PM EDT RP
--- NOTE | 2023-11-13 18:27 | ECG_ITS ---
Test Reason : CHEST PAIN Blood Pressure : / mmHG Vent. Rate : 093 BPM Atrial Rate : 093 BPM P-R Int : 168 ms QRS Dur : 084 ms QT Int : 370 ms P-R-T Axes : 064 040 032 degrees QTc Int : 460 ms Normal sinus rhythm Normal ECG When compared with ECG of 02-OCT-2022 17:09, No significant change was found Referred By: Generic ED Physician Electronically Signed By:KETAN ALVARADO
[2023-11-13 18:41] VITALS: BP 147/76; PULSE 90; RESP 20; TEMP 36.7; O2SAT 96; BMI 32.7
--- NOTE | 2023-11-13 18:41 | ED_ITS ---
HPI - Chest Pain General Chief Complaint: Chest Pain Stated Complaint: Chest pain Time Seen by Provider: 11/13/23 22:46 Source: patient Mode of arrival: ambulatory Limitations: no limitations History of Present Illness ED Provider: DR. Beckwith HPI narrative: 57-year-old male came in for evaluation of left-sided chest pain that started around 11:00 pain has been constant for 3 hours now pain has resolved patient was localized to the left chest with no radiation, patient declined any association with shortness of breath. Stated that he has been having stress at work, no recent travel, no lower extremity swelling or tenderness, no history of DVT or pulmonary embolism. Related Data Home Medications ?Medication ?Instructions ?Recorded ?Confirmed buprenorphine 8 mg-naloxone 2 mg 2 film sublingual DAILY 12/20/20 02/15/23 sublingual film (Suboxone) acetaminophen 650 mg 650 mg PO Q8H PRN fever 04/11/21 02/15/23 tablet,extended release (Arthritis Pain Relief (acetaminophen) ER) melatonin 5 mg tablet 10 mg PO BEDTIME PRN insomnia 04/11/21 02/15/23 sildenafil 50 mg tablet (Viagra) 50 mg PO DAILY PRN 04/11/21 02/15/23 cholecalciferol (vitamin D3) 50 50 mcg PO DAILY 10/30/21 02/15/23 mcg (2,000 unit) capsule fluticasone propionate 50 2 spray intranasal DAILY 10/30/21 02/15/23 mcg/actuation nasal spray,suspension albuterol sulfate 90 mcg/actuation 2 puff inhalation Q6H PRN 06/05/22 02/15/23 aerosol inhaler varenicline 1 mg tablet 1 mg PO BID 06/05/22 02/15/23 buprenorphine 4 mg-naloxone 1 mg 5 mg sublingual QAM 04/18/23 sublingual film (Suboxone) loratadine 10 mg tablet 10 mg PO DAILY 04/18/23 blood pressure test kit-large #1 ea 05/31/23 diclofenac sodium 1 % topical gel 2 g topical pain 05/31/23 gabapentin 300 mg capsule mg PO 05/31/23 lidocaine 5 % topical patch patch topical 05/31/23 naproxen 500 mg tablet 500 mg PO BID 05/31/23 tiotropium bromide 18 mcg capsule 1 cap inhalation DAILY 05/31/23 with inhalation device (Spiriva with HandiHaler) Previous Rx's ?Medication ?Instructions ?Recorded ibuprofen 600 mg tablet 600 mg PO Q8H PRN pain #15 tabs 08/09/20 fluticasone 250 mcg-salmeterol 50 1 inh inhalation BID copd 30 days 10/30/21 mcg/dose blistr powdr for #60 ea inhalation (Advair Diskus) dicyclomine 10 mg capsule 10 mg PO TID PRN abdominal pain 03/19/23 #14 caps Allergies Allergy/AdvReac Type Severity Reaction Status Date / Time No Known Allergies Allergy Verified 11/13/23 18:42 [No Known Allergies*] Review of Systems 2 Review of Systems: All other systems are reviewed and are negative Constitutional: Reports as per HPI and Reports no additional constitutional complaints Eyes: Reports as per HPI and Reports no additional eye complaints Reports system reviewed and no additional complaints, except as documented Cardiovascular: Reports as per HPI and Reports no additional cardiovascular complaints Respiratory: Reports as per HPI and Reports no additional respiratory complaints Gastrointestinal: Reports as per HPI and Reports no additional gastrointestinal complaints Genitourinary: Reports no additional female genitourinary complaints Musculoskeletal: Reports no additional musculoskeletal complaints Skin/Breast: Reports system reviewed and no additional complaints, except as docu Psychiatric: Reports no additional psychiatric complaints Endocrine: Reports no additional endocrine complaints Hematologic/Lymphatic: Reports no additional hematologic/lymphatic complaints Allergic/Immunologic: Reports no additional allergic/immunologic complaints Reports system reviewed and no additional complaints, except as documented and Reports Abnormal speech present [facility] Past Medical History Medical History Depression with anxiety Personal history of nicotine dependence History of heroin abuse Mediastinal adenopathy COPD (chronic obstructive pulmonary disease) Smoker Surgical History History of colonoscopy (~2019) Social History Social History Alcohol intake: never Patient Tobacco Use Status: Current everyday Tobacco user Cigarettes Per Day: 1 Years Smoked: 42 Advance Directives: No Advance Directives Information Provided: No Physical Exam 2 Vital Signs: Vital Signs: Last Vital Signs Temp 98.2 F 11/13/23 22:39 Pulse 69 11/13/23 22:39 Resp 18 11/13/23 22:39 BP 111/77 11/13/23 22:39 Pulse Ox 98 11/13/23 22:39 O2 Del Method Room Air 11/13/23 22:39 BMI result Body Mass Index 32.7 Vital signs have been reviewed and appear to be correct. Blood pressure elevated. Heart rate normal. Respiratory rate normal. Temperature normal. Oxygen saturation normal. Appearance: Alert. Oriented X3. No acute distress. Head: Normal external exam. Normocephalic. Atraumatic. No Walters signs noted. No raccoon eyes noted Eyes: PERRLA. EOMI. Conjunctiva and sclera normal. Eyelids normal. ENT: TM's Normal. Pharynx normal. Uvula midline. Moist mucous membranes. No trismus noted. No drooling noted. No muffled voice noted. Neck: Normal inspection. Neck supple. FROM. No adenopathy. Thyroid Normal. No meningeal signs. No neck mass noted. CVS: Normal heart rate and rhythm. Heart sound normal. No murmurs noted. Pulses normal throughout. Respiratory: No respiratory distress. Painless inspiration. Breath sounds normal. No wheezes/rales/rhonchi noted. Chest nontender. No accessory muscle usage noted or decreased air movement noted. Abdomen: Soft and nontender. Bowel sounds normal in all 4 quadrants. No distention noted. No organomegaly noted. No visible injury noted. Back: No CVA tenderness. Full range of motion noted. Skin: Skin warm and dry. Normal skin color. Normal skin turgor. No rashes/lesions/lacerations noted. Extremities: No lower extremity edema. Extremities exhibit normal range of motion. Extremities nontender. Neuro: Oriented X 3. Cranial nerve exam: II-XII are grossly intact No motor deficit. No sensory deficit. Reflexes normal. Course Course Course Narrative: This is an RME: Additional HPI, ROS, PE not included below will be deferred to primary provider. RME assessment and note performed by: Babs Shin PA-C This is a [id number]-hmo-male, with a hx of fatty liver, COPD, who presents to the ER with complaints of chest pain since this afternoon. Plan: Labs, EKG, chest x-ray, further ER evaluation needed. Reevaluation(s) Reevaluation #1: Chest pain-free, unremarkable cardiac markers, no pulmonary embolism, chest x- ray is normal, unremarkable EKG. Time: 23:23 Medical Decision Making Differential Diagnosis Differential Diagnoses: The differential diagnosis associated with the presentation includes (ACS, pulmonary embolism, pneumonia, pneumothorax, pleural effusion, electrolyte derangement, severe anemia.) Admission/Observation Consideration of admission/observation: Escalation of care including admission/observation considered Lab Data MDM Lab Attestation statement: I reviewed the patient's lab results. 11/13/23 19:22 11/13/23 19:22 Labs: Lab Results 11/13/23 Range/Units 19:22 WBC 7.3 (4.8-10.8) X10*3/uL RBC 4.38 L (4.60-5.80) X10*6/uL Hgb 13.4 L (14.0-18.0) g/dl Hct 37.8 L (42.0-52.0) % MCV 86.3 (80.0-98.0) fL MCH 30.6 (27.0-33.0) pg MCHC 35.4 (31.0-36.0) g/dl RDW 11.8 (11.0-16.0) % Plt Count 261 (160-400) X10*3/uL MPV 9.4 (9.4-12.4) fL Immature Gran % (Auto) 0.3 (0.0-0.4) % Neut % (Auto) 51.6 (45-73) % Lymph % (Auto) 38.8 (20-40) % Pitt % (Auto) 6.4 (2-11) % Eos % (Auto) 2.5 (0-4) % Baso % (Auto) 0.4 (0-2) % Lymph # (Auto) 2.8 (1.2-4.9) X10*3/uL Pitt # (Auto) 0.5 (0.1-1.2) X10*3/uL Eos # (Auto) 0.2 (0.0-0.4) X10*3/uL Baso # (Auto) 0.0 (0.0-0.2) X10*3/uL Abs Immat Gran (auto) 0.02 (0.00-0.03) X10*3/uL Absolute Neuts (auto) 3.8 (2.0-8.3) x10*3/uL Absolute Nucleated RBC 0.000 (0.0-0.012) X10*3/uL Nucleated RBC % (auto) 0.0 (0.0-0.2) /100WBC PT 13.5 H (11.1-13.3) SEC INR 1.1 (0.9-1.1) Sodium 141 (135-145) mmol/L Potassium 4.2 (3.3-5.1) mmol/L Chloride 104 (96-108) mmol/L Carbon Dioxide 28 (22-29) mmol/L Anion Gap 13 (12-20) BUN 16 (9-16) mg/dL Creatinine 0.92 (0.5-1.4) mg/dL Estim Creat Clear Calc 97.2 Estimated GFR > 60 Random Glucose 122 H (60-115) mg/dL Calcium 9.6 (8.4-10.2) mg/dL Magnesium 2.4 (1.6-2.6) mg/dL Total Bilirubin 0.6 (0.0-1.0) mg/dL Direct Bilirubin 0.2 (0.0-0.5) mg/dL AST 46 H (5-37) U/L ALT 54 H (0-40) U/L Alkaline Phosphatase 64 (39-117) U/L Troponin I High Sens < 2.7 (<3.5-35.0) ng/L Total Protein 7.8 (6.5-8.0) g/dL Albumin 4.5 (3.5-5.0) g/dL Influenza Type A (PCR) NEGATIVE (Negative) Influenza Type B (PCR) NEGATIVE (Negative) RSV RNA Qual (PCR) NEGATIVE (Negative) SARS-CoV-2 RNA (RT-PCR) NEGATIVE (Negative) Independent Interpretation I performed an independent interpretation of an: EKG (Normal sinus rhythm at 93 beats per minutes, normal intervals, no change from previous EKG.) and Plain X- Ray (Chest: Unremarkable examination.) Radiology Impression Discussion of test interpretation with radiology: I have reviewed the radiologist's reading. Discharge Plan Discharge Clinical Impression: Atypical chest pain Patient Disposition: Home, Self-Care Instructions: Chest Pain (ED) Prescriptions: No Action ibuprofen 600 mg tablet 600 mg PO Q8H PRN (Reason: pain) Qty: 15 0RF dicyclomine 10 mg capsule 10 mg PO TID PRN (Reason: abdominal pain) Qty: 14 0RF buprenorphine-naloxone [Suboxone] 8-2 mg film 2 film sublingual DAILY Rx Instructions: place 1 strip/tab under (each) side of tongue melatonin 5 mg tablet 10 mg PO BEDTIME PRN (Reason: insomnia) acetaminophen [Arthritis Pain Relief (acetam)] 650 mg tablet extended release 650 mg PO Q8H PRN (Reason: fever) sildenafil [Viagra] 50 mg tablet 50 mg PO DAILY PRN albuterol sulfate 90 mcg/actuation HFA aerosol inhaler 2 puff inhalation Q6H PRN varenicline 1 mg tablet 1 mg PO BID cholecalciferol (vitamin D3) 50 mcg (2,000 unit) capsule 50 mcg PO DAILY fluticasone propionate 50 mcg/actuation spray,suspension 2 spray intranasal DAILY fluticasone propion-salmeterol [Advair Diskus] 250-50 mcg/dose blister with device 1 inh inhalation BID 30 Days Qty: 60 4RF gabapentin 300 mg capsule PO lidocaine 5 % adhesive patch,medicated topical diclofenac sodium 1 % gel 2 g topical naproxen 500 mg tablet 500 mg PO BID (DME) blood pressure test kit-large Kit See Rx Instructions .ROUTE DAILY Qty: 1 Rx Instructions: As directed tiotropium bromide [Spiriva with HandiHaler] 18 mcg capsule, w/inhalation device 1 cap inhalation DAILY buprenorphine-naloxone [Suboxone] 4-1 mg film 5 mg sublingual QAM loratadine 10 mg tablet 10 mg PO DAILY Referrals: Randa Godinez DO [Primary Care Provider] - Print Language: Malay
[2023-11-13 19:27] LABS: MANUAL DIFF FLAG NO
[2023-11-13 19:33] LABS: Basophils Percent Auto 0.4 % (0-2); Eosinophils Absolute Auto 0.2 X10*3/uL (0.0-0.4); Eosinophils Percent Auto 2.5 % (0-4); Hematocrit 37.8 % (42.0-52.0); Hemoglobin 13.4 g/dl (14.0-18.0); Imm Gran Abs Auto 0.02 X10*3/uL (0.00-0.03); Imm Gran Pct Auto 0.3 % (0.0-0.4); Lymphocytes Absolute Auto 2.8 X10*3/uL (1.2-4.9); Lymphocytes Percent Auto 38.8 % (20-40); Mean Corpuscular HGB Conc 35.4 g/dl (31.0-36.0); Mean Corpuscular Hemoglobin 30.6 pg (27.0-33.0); Mean Corpuscular Volume 86.3 fL (80.0-98.0); Mean Platelet Volume 9.4 fL (9.4-12.4); Monocytes Absolute Auto 0.5 X10*3/uL (0.1-1.2); Monocytes Percent Auto 6.4 % (2-11); Neutrophils Absolute Auto 3.8 x10*3/uL (2.0-8.3); Neutrophils Percent Auto 51.6 % (45-73); Platelet Count 261 X10*3/uL (160-400); Red Blood Count 4.38 X10*6/uL (4.60-5.80); Red Cell Distribution Width 11.8 % (11.0-16.0); White Blood Count 7.3 X10*3/uL (4.8-10.8)
[2023-11-13 19:38] LABS: INTERNATIONAL NORM RATIO 1.1 (0.9-1.1); Prothrombin Time 13.5 SEC (11.1-13.3)
[2023-11-13 19:44] LABS: Alanine Aminotransferase 54 U/L (0-40); Albumin Level 4.5 g/dL (3.5-5.0); Alkaline Phosphatase 64 U/L (39-117); Anion Gap 13 (12-20); Aspartate Amino Transferase 46 U/L (5-37); Bilirubin Direct 0.2 mg/dL (0.0-0.5); Bilirubin Total 0.6 mg/dL (0.0-1.0); Blood Urea Nitrogen 16 mg/dL (9-16); Calcium 9.6 mg/dL (8.4-10.2); Carbon Dioxide 28 mmol/L (22-29); Chloride 104 mmol/L (96-108); Creatinine Clr Calc Pharmacy 97.2; Estimated Glomerular Filt Rate > 60; Glucose Random 122 mg/dL (60-115); Magnesium 2.4 mg/dL (1.6-2.6); Potassium 4.2 mmol/L (3.3-5.1); Sodium 141 mmol/L (135-145); Total Protein 7.8 g/dL (6.5-8.0)
[2023-11-13 19:51] LABS: Troponin-I High Sensitivity < 2.7 ng/L (<3.5-35.0)
[2023-11-13 20:05] LABS: Influenza A PCR NEGATIVE (Negative); Influenza B PCR NEGATIVE (Negative); Resp Syncy Virus RNA Qual PCR NEGATIVE (Negative); SARS COV2 PCR INHOUSE NEGATIVE (Negative)
[2023-11-13 22:39] VITALS: BP 111/77; PULSE 69; RESP 18; TEMP 36.8; O2SAT 98
[2023-11-13 23:20] LABS: D Dimer High Sensitivity 189 NG/ML
[2023-11-13 23:35] LABS: Troponin-I High Sensitivity < 2.7 ng/L (<3.5-35.0)
== END 2023-11-14 00:21 | disposition home or self-care (01) ==
PROVIDERS: Physician Assistant Medical; Emergency Provider Emergency Medicine; PCP Family Medicine
DX: R07.9 Chest pain, unspecified (principal); Z79.899 Other long term (current) drug therapy; Z03.818 Encounter for observation for suspected exposure to other biological agents ruled out
CPT/HCPCS: 0241U; 36415; 71046; 80048; 80076; 83735; 84484; 85025; 85379; 85610; 93005; 99283

== ENCOUNTER 2023-11-15 12:44 | Outpatient (REF) | payer OTHER, SELFPAY ==
--- NOTE | ~2023-11-15 | CT_ITS ---
EXAMINATION: CT CHEST WITHOUT CONTRAST CLINICAL INFORMATION: Follow-up pulmonary nodules. COMPARISON: 02/22/2020, 09/21/2018. TECHNIQUE: Multidetector volumetric CT imaging of the chest was done. Axial MIP volume rendering provided. Sagittal and coronal reformatted images were obtained. This CT examination was performed using dose optimization techniques as appropriate, variously including the following: *Automated exposure control *Adjustment of mA and/or kV according to patient size (this includes techniques or standardized protocols for targeted exams where dose is matched to indication/reason for exam; i.e. extremities or head) *Use of iterative reconstruction technique DLP: 166 mGy-cm FINDINGS: PULMONARY NODULES: -2 mm calcified granuloma subpleural right upper lobe laterally (series 5, image 116), benign. -3 mm subpleural nodule abutting the diaphragmatic pleura left lower lobe (series 5, image 363), new from prior. -No enlarging or suspicious nodules are evident. There is a stable 2 mm right major fissural nodule (series 5, image 223), consistent with intrapulmonary lymph node. This is benign. LUNGS: -There is mild to moderate paraseptal emphysema again noted. There is mild mosaic attenuation bilaterally, likely secondary to air trapping. -Previously seen mild bronchial wall thickening in the lower lobes is unchanged and likely reflective of chronic bronchitis. -There is a stable reticular scarring in the posterior right upper lobe abutting the major fissure. There is no acute lung disease identified. -Central airways are patent. -There is no pericardial or pleural effusion. -There is no pneumothorax or pleural mass. MEDIASTINUM: The mediastinum is normal. CORONARY ARTERY CALCIFICATION: Mild to moderate LAD calcifications. AXILLA/CHEST WALL: -No lymphadenopathy. No masses. UPPER ABDOMEN: -There is a subcentimeter cyst in segment 4A of the liver. -Otherwise, normal-appearing upper abdominal contents. OSSEOUS STRUCTURES: -No acute or suspicious findings. Moderate degenerative changes throughout the spine. CT/CT chest wo IV con IMPRESSION: 1. Stable tiny pulmonary nodules. These are benign. No new or enlarging nodules. 2. Mild to moderate paraseptal emphysema. 3. Mild thickening of the lower lobe airways suggesting mild chronic bronchitis. Otherwise, no active superimposed lung disease. 4. Additional ancillary findings as described. Fleischner guidelines were followed. Electronically signed by: Rod Alfaro MD 01/31/2024 01:27 PM DAISY RP
== END 2023-11-15 12:45 | disposition home or self-care (01) ==
LOC: HO.CT 12:44
PROVIDERS: PCP Family Medicine; Visit Provider Family Medicine
DX: R91.8 Other nonspecific abnormal finding of lung field (principal)
CPT/HCPCS: 71250

== ENCOUNTER → 2023-11-15 12:45 | Outpatient (BNV) | payer OTHER, SELFPAY | PROVIDERS: PCP Family Medicine; Visit Provider Radiology Diagnostic Radiology | DX: R91.8 Other nonspecific abnormal finding of lung field (principal) | CPT/HCPCS: 71250 ==

== ENCOUNTER 2023-11-22 08:33 | Outpatient (AMB) | payer OTHER, SELFPAY ==
--- NOTE | 2023-11-22 08:35 | MHC.OFFVIS ---
Vital Signs 11/22/23 08:44 Height 5 ft 7 in Weight 205 lb 0.478 oz BMI 32.1 BP 135/70 Blood Pressure Location Lt brachial Position Sitting Pulse 97 Intake Visit Reasons: 6 month f/u Intake Note: [place] presents in the office as a 6 month follow up. CC: He states that he is worried and stressed - got a call from his PCP a month ago stating that his blood work has gotten worse and that he had more fatty tissue in his liver. He states that he gets both constipation and diarrhea. Denies any blood in his stool. Quality Assurance Tech Required: No Allergies No Known Allergies [No Known Allergies*] Allergy (Verified 11/22/23 08:44) HPI HPI 6 month f/u: Details: 57 yr old patient w/ hx of emphysema, smoking here for f/u for abn imaging RECAP: He has had RUQ and RLQ pain for few years at least no radiation denies nausea or vomiting denies constiaption or diarrhea no blood in stool, did have blood on wiping a year or two ago, colonoscopy 2018 with int hemorrhoids, and tics, no polyps or masses can be 5-6/10 in severity no exacerbating factors, comes and goes without any reason food does not affect weight is stable, appetite is good on suboxone for many years Imaging: MRI: 2021- midl dilated cbd, intrahepatic ducts, no lesions or stones seen CT 09/2021- dilated CBD and minimal PD dilation, emphysema, no masses or fillin defects, LABS: LFT 03/2023--normal LFT 12/02- AST 46, ALT 54--rast pos for shrimp US 06/14/23- stable appearance of cbd and pd, dilated as before, fatty liver INTERIM: he is worried about fatty liver not been eating healthy denies upper abdominal pain no nausea or vomiting still taking suboxone, he stopped smoking now EXAM: GENERAL: The patient is well developed and nontoxic. VITAL SIGNS:see workflow HEENT: Nonicteric sclerae, PERRLA, EOMI. Oropharynx clear. Moist mucous membranes. Conjunctivae appear well perfused. No thyroid mass. CHEST: Chest wall is nontender. HEART: Regular rate and rhythm without murmurs. LUNGS: Clear to auscultation bilaterally but reduced BS bilaterally ABDOMEN: Soft, positive bowel sounds, nontender, no organomegaly.no flank tenderness SKIN: No rash, no excessive bruising, petechiae, or purpura. NEUROLOGIC: Cranial nerves II-XII intact without motor/sensory deficit. A/P: 1/ Abn imaging with dilated CBD prob from Suboxone use, with nml LFT< no mass lesions on last MRI--stable appearance on recent US but does have fatty liver Plan: 1/ refer nutrition for advice about low fat diet 2/ might benefit from rezdiffra--will recheck LFT in few months with fibrosure 3/ periodic eval of CBD and liver, repeat imaging in 3-6 months 4. next visit hep b vaccine [facility] Medical History Depression with anxiety Personal history of nicotine dependence History of heroin abuse Mediastinal adenopathy COPD (chronic obstructive pulmonary disease) Smoker Surgical History History of colonoscopy (~2019) Social History Alcohol intake: never Patient Tobacco Use Status: Current everyday Tobacco user Cigarettes Per Day: 1 Years Smoked: 42 Physical Exam Vital Signs: Last Vital Signs Pulse 97 11/22/23 08:44 BP 135/70 11/22/23 08:44 BMI result Body Mass Index 32.1 Assessment & Plan Assessment & Plan (1) Fatty liver: Code(s): K76.0 - Fatty (change of) liver, not elsewhere classified Category: Medical Plan: see above Orders: Orders Liver Fibrosis Pnl 2 Months K76.0 - Fatty (change of) liver, not elsewhere classified Comprehensive Met. Panel 2 Months K75.81 - Nonalcoholic steatohepatitis (JERONIMO), K76.0 - Fatty (change of) liver, not elsewhere classified Complete Blood Count Auto Diff 2 Months K76.0 - Fatty (change of) liver, not elsewhere classified Prothrombin Time INR 2 Months K76.0 - Fatty (change of) liver, not elsewhere classified Referrals Ticket Attendant Nutrition Referral K76.0 - Fatty (change of) liver, not elsewhere classified Coding Level of Care Code Est Pt Level 3 (24663) Diagnoses Fatty liver K76.0
[2023-11-22 08:44] VITALS: BP 135/70; PULSE 97; BMI 32.1
== END 2023-11-22 09:21 | disposition home or self-care (01) ==
PROVIDERS: PCP Family Medicine; Visit Provider Internal Medicine Gastroenterology
DX: K76.0 Fatty (change of) liver, not elsewhere classified (principal)
CPT/HCPCS: 99213

== ENCOUNTER → 2023-11-22 08:33 | Outpatient (BNVA) | payer OTHER, SELFPAY | PROVIDERS: PCP Family Medicine; Visit Provider Internal Medicine Gastroenterology | DX: K76.0 Fatty (change of) liver, not elsewhere classified (principal); K75.81 Nonalcoholic steatohepatitis (NASH) | CPT/HCPCS: 99212 ==

== ENCOUNTER 2023-12-06 09:07 | Outpatient (REF) | payer OTHER, SELFPAY ==
--- NOTE | ~2023-12-06 | US_ITS ---
EXAMINATION: US ABDOMEN LIMITED WITH LIVER ELASTOGRAPHY CLINICAL INFORMATION: Fatty liver. COMPARISON: Elastography 06/14/2023. TECHNIQUE: Real-time imaging of the abdominal viscera. Noninvasive ultrasound liver fibrosis assessment is performed using Cornelia ElastPQ point quantification shear wave elastography (pSWE) with a 5 MHz transducer. Multiple elastography samples are obtained. FINDINGS: PANCREAS: The visualized pancreatic head and body are normal in appearance. The remainder of the pancreas is obscured from visualization by the overlying bowel gas. LIVER: The liver is enlarged and echogenic. No focal lesion or intrahepatic biliary duct dilatation. The right lobe measures 19.5 cm in length. The left lobe measures 10.1 cm in length. Shear wave elastography provides a median stiffness of 1.5 m/s (reference: normal median stiffness is 0.81-1.22 m/s). The IQR/median stiffness to assess sampling precision is 0.15 (reference: optimal IQR/median stiffness is under 0.3). GALLBLADDER: The gallbladder is physiologically distended without evidence of stones, sludge, polyps, wall thickening or pericholecystic fluid. COMMON BILE DUCT: Normal in caliber measuring 1.3 cm in diameter. RIGHT KIDNEY: No hydronephrosis. No renal calculi or focal parenchymal lesions. The kidney measures 11.2 cm in maximum dimension. FREE FLUID: None. US/US abdomen good w elastography IMPRESSION: 1. Enlarged fatty liver. 2. Elastography: Liver elastography measurements are consistent with a minimal risk for clinically significant liver fibrosis (METAVIR Stage F0-F1). Electronically signed by: Eliceo Torres MD 01/23/2024 12:44 PM [facility]
== END 2023-12-06 09:08 | disposition home or self-care (01) ==
LOC: HO.US 09:07
PROVIDERS: PCP Family Medicine; Visit Provider Internal Medicine Gastroenterology
DX: K76.0 Fatty (change of) liver, not elsewhere classified (principal)
CPT/HCPCS: 76705; 76981

== ENCOUNTER 2024-03-27 09:53 | Outpatient (AMB) | payer OTHER, SELFPAY ==
--- NOTE | 2024-03-27 09:57 | A.OFFVIS_ITS ---
Vital Signs 03/27/24 10:00 Height 5 ft 7 in Weight 205 lb 0.478 oz BMI 32.1 BP 113/62 Blood Pressure Location Lt brachial Position Sitting Pulse 90 Intake Visit Reasons: 4 month follow up Intake Note: [place] presents in the office as a 4 month follow up. CC: He states that he is not having concerns but he has been having some lower back pains and abdominal discomfort, and sbetween diarrhea and constipation on and off. Denies any GI concerns. Financial Analyst Accountant Required: No Accompanied by: Self / Same As Patient Allergies No Known Allergies [No Known Allergies*] Allergy (Verified 03/27/24 10:00) HPI HPI 4 month follow up: Details: 57 yr old patient w/ hx of emphysema, smoking here for f/u for abn imaging RECAP: He has had RUQ and RLQ pain for few years at least no radiation denies nausea or vomiting denies constiaption or diarrhea no blood in stool, did have blood on wiping a year or two ago, colonoscopy 2018 with int hemorrhoids, and tics, no polyps or masses can be 5-6/10 in severity no exacerbating factors, comes and goes without any reason food does not affect weight is stable, appetite is good on suboxone for many years Imaging: MRI: 2021- midl dilated cbd, intrahepatic ducts, no lesions or stones seen CT 09/2021- dilated CBD and minimal PD dilation, emphysema, no masses or fillin defects, US 06/14/23- stable appearance of cbd and pd, dilated as before, fatty liver US 12/02- fatty liver, F0 on elastography, CBD stable 1.3 cm LABS: LFT 03/2023--normal LFT 12/02- AST 46, ALT 54--rast pos for shrimp INTERIM: He has noted RUQ pain, worse with constipation, relieved by passign stool no nausea no vomtiing no other sx not had colonoscopy for long time EXAM: GENERAL: The patient is well developed and nontoxic. VITAL SIGNS:see workflow HEENT: Nonicteric sclerae, PERRLA, EOMI. Oropharynx clear. Moist mucous membranes. Conjunctivae appear well perfused. No thyroid mass. CHEST: Chest wall is nontender. HEART: Regular rate and rhythm without murmurs. LUNGS: Clear to auscultation bilaterally but reduced BS bilaterally ABDOMEN: Soft, positive bowel sounds, nontender, no organomegaly.no flank tenderness SKIN: No rash, no excessive bruising, petechiae, or purpura. NEUROLOGIC: Cranial nerves II-XII intact without motor/sensory deficit. A/P: 1/ Abn imaging with dilated CBD prob from Suboxone use, with nml LFT stable 2/ abn bowle habit and pain, prob due to subxone 3/ fatty liver, F0 on elastography Plan: 1/ repeat US next visit 2/ colonoscopy 3/ trial of miralax [facility] Medical History Depression with anxiety Personal history of nicotine dependence History of heroin abuse Mediastinal adenopathy COPD (chronic obstructive pulmonary disease) Smoker Surgical History History of colonoscopy (~2018) Social History Alcohol intake: never Patient Tobacco Use Status: Current everyday Tobacco user Cigarettes Per Day: 1 Years Smoked: 42 Physical Exam Vital Signs: BMI result Body Mass Index 32.1 Assessment & Plan Assessment & Plan (1) Fatty liver: Code(s): K76.0 - Fatty (change of) liver, not elsewhere classified Category: Medical Plan: see above Medications: New sodium,potassium,mag sulfates 17.5-3.13-1.6 gram (Suprep Bowel Prep Kit) DILUTE; drink 1/2 at 6-8 pm and half at 11 PM- 1AM 354 mL 0RF polyethylene glycol 3350 (Miralax) 17 grams PO DAILY 100 ea 0RF Coding Level of Care Code Est Pt Level 4 (85909) Diagnoses Fatty liver K76.0
[2024-03-27 10:00] VITALS: BP 113/62; PULSE 90; BMI 32.1
== END 2024-03-27 10:56 | disposition home or self-care (01) ==
PROVIDERS: PCP Family Medicine; Visit Provider Internal Medicine Gastroenterology
DX: K76.0 Fatty (change of) liver, not elsewhere classified (principal)
CPT/HCPCS: 99214

== ENCOUNTER → 2024-03-27 09:53 | Outpatient (BNVA) | payer OTHER, SELFPAY | PROVIDERS: PCP Family Medicine; Visit Provider Internal Medicine Gastroenterology | DX: K76.0 Fatty (change of) liver, not elsewhere classified (principal) | CPT/HCPCS: 99212 ==

== ENCOUNTER 2024-10-28 10:24 | Outpatient (REF) | payer OTHER, SELFPAY ==
--- OUTSIDE RECORDS SUMMARY | 2024-10-28 11:38 | XMS_ITS | Clinical Summary ---
Author Organization [facility] ity Address [address] [place] [address] Care Team Providers Care Branch Lending Officer Name Role Phone Unavailable Primary Care Provider Unavailabl e Social History Tobacco Use Types Packs/Day Years Used Date Smoking Tobacco: Never Assessed Sex and Gender Information Value Date Recorded Sex Assigned at Not on file Legal Sex Male 5:01 AM EST Gender Identity Not on file Sexual Orientation Not on file Plan of Treatment Health Maintenance Due Date Last Done Comments DTaP,Tdap,and Td Vaccines (1 - Tdap) 1984 Hepatitis B Vaccines (1 of 3 - 19+ 3-dose series) 1984 Pneumococcal Vaccine: 50+ Ye ars (1 of 1 - PCV) 12/01/2015 Zoster Vaccines (1 of 2) 12/01/2015 COVID-19 Vaccine (1 - 2023-2 5 season) 2023 Depression Screening 03/11/2024 Influenza Vaccine (#1) 2024 HIB Vaccines Aged Out No longer eligi ble based on patient's age to complete this topic HPV Vaccines Aged Out No longer eligi ble based on patient's age to complete this topic Hepatitis A Vaccines Aged Out No long er eligible based on patient's age to complete this topic IPV Vaccines Aged Out No longer eligi ble based on patient's age to complete this topic MMR Vaccines Aged Out No longer eligi ble based on patient's age to complete this topic Meningococcal ACWY Vaccine Aged Out N o longer eligible based on patient's age to complete this topic Meningococcal B Vaccine Aged Out No l onger eligible based on patient's age to complete this topic RSV Immunization Patients Un channing 20 months Aged Out No longer eligible b ased on patient's age to complete this topic Varicella Vaccines Aged Out No longer eligible based on patient's age to complete this topic
--- OUTSIDE RECORDS SUMMARY | 2024-10-28 11:39 | XMS_ITS | Encounter Summary ---
Author Organization [employer] Address [address] [place] [address] 7 [place] [address] Care Team Providers Care Biology Teacher Name Role Phone Randa Godinez DO Primary Care Provider + [phone] Reason for Visit * Reason Onset Date Comments Med Refill 09/17/2024 Encounter Details Date Type Department Care Team (Late st Contact Info) Description 09/17/2024 Refill [facility] [address] [place] [address] Randa Godinez DO [address] [place] [address] Social History Tobacco Use Types Packs/Day Years Used Date Smoking Tobacco: Former Cigarettes Alcohol Use Standard Drinks/Week Comments Defer 0 (1 standard drink = 0.6 oz pur e alcohol) Depression Answer Date Recorded Patient Health Questionnaire-9 Score 10 11/15/2022 Housing Stability Answer Date Recorded What is your housing situation today? I have alon bruce 12/24/[address] you li ve. Do you have problems with any of the following? None of the above 12/24/2022 Food Insecurity Answer Date Recorded Within the past 12 months, y ou worried that your food would run out before you got money to buy more: Never True 12/24/2022 Within the past 12 months,th e food you bought just didn't last and you didn't have enough money to get more: Never True Transportation Answer Date Recorded In the past 12 months, has l ack of transportation kept you from medical appts, meetings, work or from getting things needed for daily living? No 12/24/2022 Utilities Answer Date Recorded In the past 12 months, has t he electric, gas, oil or water company threatened to shut off services in your home? No 10/11/2023 Depression Answer Date Recorded Patient Health Questionnaire-2 Score 2 06/28/2023 Internet Access Answer Date Recorded Internet Access Q1 Yes 11/08/2023 Internet Access Q2 Not on file 11/08/2023 Sex and Gender Information Value Date Recorded Sex Assigned at Male 01/08/2022 10:18 AM EDT Legal Sex Male 10:18 AM EDT Gender Identity Male 01/08/2022 10:18 AM EDT Sexual Orientation Choose not to disclose 2021 10:18 AM EDT documented as of this encounter Plan of Treatment Upcoming Encounters Date Type Department Care Team (Late st Contact Info) Description 11/05/2024 2:00 PM EDT Clinical Support [facility] [address] [place] [address] Cheo Rucker RN [address] [place] [phone] 12/31/2024 2:00 PM EDT Office Visit [facility] [address] [place] [phone] Rebeca Gonzales MD [address] [place] [phone] documented as of this encounter Goals Goal Patient Goal Type Associated Problems Recent Progress Patient-Stated? Author Reduce tobacco use (cigarettes, smokeless, etc) Tobacco Use No change( 025 2:20 PM EDT) No Cheo Rucker, RN documented as of this encounter Visit Diagnoses Not on filedocumented in this encounter Additional Health Concerns Assessment Noted Time PHQ-9 Depression Total Score: 10 023 10:23 AM EDT documented as of this encounter Care Teams Biology Teacher Relationship Specialty Start Date End Date Randa Godinez DO [address] [place] [phone] PCP - General Family Medicine 09/25/13 documented as of this encounter
[2024-10-28 12:24] LABS: MANUAL DIFF FLAG NO
[2024-10-28 12:28] LABS: Hematocrit 39.4 % (42.0-52.0); Hemoglobin 13.3 g/dl (14.0-18.0); Imm Gran Abs Auto 0.01 X10*3/uL (0.00-0.03); Imm Gran Pct Auto 0.2 % (0.0-0.4); Lymphocytes Absolute Auto 2.5 X10*3/uL (1.2-4.9); Mean Corpuscular HGB Conc 33.8 g/dl (31.0-36.0); Mean Corpuscular Hemoglobin 29.3 pg (27.0-33.0); Mean Corpuscular Volume 86.8 fL (80.0-98.0); NRBC Abs Auto 0.000 X10*3/uL (0.0-0.012); NRBC Pct Auto 0.0 /100WBC (0.0-0.2); Platelet Count 247 X10*3/uL (160-400); Red Blood Count 4.54 X10*6/uL (4.60-5.80); White Blood Count 6.3 X10*3/uL (4.8-10.8)
[2024-10-28 12:31] LABS: INTERNATIONAL NORM RATIO 1.0 (0.9-1.1); Prothrombin Time 11.6 SEC (10.9-12.4)
[2024-10-28 12:34] LABS: Hemoglobin A1C 124.8735 umol/L; Total Hemoglobin (HGBA1C) 3558.4202 umol/L
[2024-10-28 13:14] LABS: Alanine Aminotransferase 51 U/L (0-40); Albumin Level 4.5 g/dL (3.5-5.0); Alkaline Phosphatase 73 U/L (39-117); Anion Gap 12 (12-20); Aspartate Amino Transferase 56 U/L (5-37); Blood Urea Nitrogen 15 mg/dL (9-16); Calcium 9.1 mg/dL (8.4-10.2); Carbon Dioxide 28 mmol/L (22-29); Chloride 104 mmol/L (96-108); Cholesterol 176 mg/dL (<200); Estimated Glomerular Filt Rate > 60; HDL Cholesterol 37 mg/dL (>40); Iron 107 mcg/dL (45-160); Percent Iron Saturation 32 % (15-50); Potassium 4.1 mmol/L (3.3-5.1); Sodium 140 mmol/L (135-145); Total Iron Binding Capacity 333 mcg/dL (228-428); Total Protein 7.6 g/dL (6.5-8.0); Triglycerides 234 mg/dL (<150); Unsaturated Iron Binding 226 ug/dL
[2024-10-28 13:15] LABS: Thyroid Stimulating Hormone 1.00 uIU/mL (0.32-4.0)
[2024-10-28 13:17] LABS: Microalbum/Creatinine Ratio Ur 5.5 ug/mg cr (<30)
[2024-10-28 13:22] LABS: Ferritin 225 ng/mL (20-250); Free T4 (Free Thyroxine) 1.01 ng/dL (0.71-1.85)
[2024-10-28 13:33] LABS: Folate 12.4 ng/mL (> or = 4.0); Vitamin B12 356 pg/mL (200-900)
[2024-10-29 08:20] LABS: HBS Num1 0.73 mIU/mL (0-7.99); HBsAGNum1 0.49 S/CO (0.00-0.99); HIV Num 1 0.05 S/CO (0.00-0.99); Hepatitis B Surface Antigen Negative (Negative); ~HepC Num1 0.51 S/CO (0.00-0.79); ~Hepatitis B Surface Antibody NONREACTIVE (Nonreactive); ~Hepatitis C Antibody Nonreactive (Nonreactive)
[2024-11-03 01:23] LABS: FIB-ALT 32 U/L (9-46); FIB-Alpha-2-Macroglobulin 210 mg/dL (106-279); FIB-Apolipoprotein A1 144 mg/dL (94-176); FIB-GGT 19 U/L (3-85); FIB-Haptoglobin 141 mg/dL (43-212); FIB-Total Bilirubin 0.4 mg/dL (0.2-1.2); Liver Fibrosis Score 0.21; Liver Fibrosis Stage F0-F1; Nec Inflam Act Grade A0; Nec Inflam Act Score 0.14
== END 2024-10-28 10:25 | disposition home or self-care (01) ==
LOC: HO.HHCL 10:24
PROVIDERS: Internal Medicine Gastroenterology; PCP Family Medicine; Visit Provider Family Medicine
DX: Z00.00 Encounter for general adult medical examination without abnormal findings (principal); Z11.3 Encounter for screening for infections with a predominantly sexual mode of transmission; Z11.59 Encounter for screening for other viral diseases; Z11.4 Encounter for screening for human immunodeficiency virus [HIV]; K75.81 Nonalcoholic steatohepatitis (NASH); F32.A Depression, unspecified; M54.42 Lumbago with sciatica, left side; M54.41 Lumbago with sciatica, right side; G89.29 Other chronic pain; J44.9 Chronic obstructive pulmonary disease, unspecified; F17.200 Nicotine dependence, unspecified, uncomplicated; R91.8 Other nonspecific abnormal finding of lung field; Q45.3 Other congenital malformations of pancreas and pancreatic duct; R53.83 Other fatigue; G47.30 Sleep apnea, unspecified; R19.00 Intra-abdominal and pelvic swelling, mass and lump, unspecified site; Z71.3 Dietary counseling and surveillance; Z71.82 Exercise counseling
CPT/HCPCS: 36415; 80053; 80061; 81596; 82043; 82105; 82248; 82306; 82570; 82607; 82728; 82746; 83036; 83540; 84153; 84439; 84443; 85025; 85610; 86592; 86706; 86803; 87340; 87389

== ENCOUNTER 2025-01-21 15:19 | Outpatient (AMB) | payer OTHER, SELFPAY ==
[2025-01-21 15:23] VITALS: BMI 32.8
--- NOTE | 2025-01-21 15:23 | A.OFFVIS_ITS ---
Vital Signs 01/21/25 15:23 Height 5 ft 7 in Weight 209 lb 2 oz BMI 32.8 Intake Visit Reasons: Abdominal wall bulge Intake Note: Patient presents for an assessment for Abdominal wall bulge. Pt c/o; reports he is concerned for his fatty liver, he does not have a good eating habit and eats lots of junk food , reports bulge on the abdominal wall, I also feel like my right side feels different than my left side I don't know how to explain it . DI: 12/06/2023: Liver elastography 08/10/22 : Abdomen US 03/02/22: Abdomen MRI Regulatory Affairs Assistant Required: No Accompanied by: Self / Same As Patient Allergies No Known Allergies (No Known Allergies*) Allergy (Verified 01/21/25 15:32) Medication List - Last Reconciled 01/21/25 by Payam Crain MD acetaminophen ER (Arthritis Pain Relief (acetaminophen) ER) 650 mg PO Q8H PRN albuterol sulfate 90 mcg/actuation 2 puffs inhalation Q6H PRN blood pressure test kit-large As directed buprenorphine-naloxone 4-1 mg (Suboxone) 5 mg sublingual QAM buprenorphine-naloxone 8-2 mg (Suboxone) 2 film sublingual DAILY cholecalciferol (vitamin D3) 50 mcg PO DAILY diclofenac sodium 1% 2 grams topical dicyclomine 10 mg PO TID PRN fluticasone propion-salmeterol 250-50 mcg/dose (Advair Diskus) 1 inh inhalation BID 30 days fluticasone propionate 50 mcg/actuation 2 sprays intranasal DAILY gabapentin mg PO ibuprofen 600 mg PO Q8H PRN lidocaine 5% patches topical loratadine 10 mg PO DAILY magnesium 200 mg PO DAILY melatonin 10 mg PO BEDTIME PRN naproxen 500 mg PO BID polyethylene glycol 3350 (Miralax) 17 grams PO DAILY sildenafil (Viagra) 50 mg PO DAILY PRN sodium,potassium,mag sulfates 17.5-3.13-1.6 gram (Suprep Bowel Prep Kit) DILUTE; drink 1/2 at 6-8 pm and half at 11 PM- 1AM tiotropium bromide (Spiriva with HandiHaler) 1 cap inhalation DAILY varenicline tartrate 1 mg PO BID HPI HPI Abdominal wall bulge: Details: 59 year old male referred for a question of an abdominal wall bulge He said he has noted this for a long time. He denies any pain or tenderness. He denies any GI complaints. He describes this has on the epigastric area. He denies any weight loss. He said he has good oral intake. [facility] Medical History Diastasis recti Depression with anxiety Personal history of nicotine dependence History of heroin abuse Mediastinal adenopathy COPD (chronic obstructive pulmonary disease) Smoker Surgical History History of colonoscopy (~2019) Social History Alcohol intake: never Patient Tobacco Use Status: Current everyday Tobacco user Cigarettes Per Day: 1 Years Smoked: 42 Review of Systems Const Denies chills and Denies fever(s) Card Denies chest pain, Denies dyspnea and Denies dyspnea on exertion Resp Denies cough, Denies dyspnea and Denies dyspnea on exertion GI Denies hematochezia and Denies change in bowel habits Denies hematuria and Denies difficulty urinating Musc Reports back pain and Denies limited range of motion Neuro Denies focal weakness and Denies convulsions Psych Denies depression and Denies mood swings Physical Exam Vital Signs: BMI result Body Mass Index 32.8 Const Other: Obese General: comfortable and no acute distress Orientation/consciousness: patient oriented x3 Neck Neck: Yes no lymphadenopathy Resp Auscultation: clear to auscultation bilaterally Cardio Rhythm: regular rhythm GI Other: Has some diastasis recti in the upper abdomen with no obvious hernia Palpation (GI): Soft to palpation, nontender and no guarding Neuro General: patient oriented x3 Assessment & Plan Assessment & Plan (1) Diastasis recti: Code(s): M62.08 - Separation of muscle (nontraumatic), other site Category: Medical Plan: He points to the bulge on his upper abdomen in the midline which is actually consistent with a diastasis recti. I told him that he does not require any bowen rgical intervention for this. He denies any pain or tenderness. He denies GI complaints I have reviewed his old CAT scans from 3 years ago and this also shows a very small fat containing umbilical hernia. He denies any pain or tenderness in the area. This has nonpalpable on examination. I told him that if he starts to notice this with associated pain, should come back to the office and we can plan on umbilical hernia repair at some point. He understands the plan well and is comfortable with this Coding Level of Care Code New Pt Level 3 (72043) Diagnoses Diastasis recti M62.08
--- OUTSIDE RECORDS SUMMARY | 2025-01-21 18:30 | XMS_ITS | Encounter Summary ---
Author Organization [employer] Address [address] [place] [address] [address] [place] [address] Care Team Providers Care Kiln Tender Name Role Phone Randa Godinez Primary Care Provider + [phone] Reason for Visit * Reason Onset Date Comments Med Refill 02/11/2024 Encounter Details Date Type Department Care Team (Late st Contact Info) Description 02/11/2024 Refill [facility] [address] [place] [address] Rebeca Gonzales MD [address] [place] [address] Social History Tobacco Use Types Packs/Day Years [...] Care Team (Late st Contact Info) Description 02/25/2025 2:00 PM EST Office Visit [facility] [address] [place] [phone] Rebeca Gonzales MD [address] [place] [address] documented as of this encounter Visit Diagnoses Not on filedocumented in this encounter Additional Health Concerns Assessment Noted Time PHQ-9 Depression Total Score: 10 023 10:23 AM EDT documented as of this encounter Care Teams Kiln Tender Relationship Specialty Start Date End Date Randa Godinez DO [address] [place] [address] PCP - General Family Medicine 09/25/13 documented as of this encounter
--- OUTSIDE RECORDS SUMMARY | 2025-01-21 18:30 | XMS_ITS | Encounter Summary ---
Author Organization [employer] Address [address] [facility] 7 [place] [address] Care Team Providers Care Computer Processing Scheduler Name Role Phone Randa Godinez DO Primary Care Provider + [phone] Reason for Visit * Reason Onset Date Comments Med Refill 09/17/2024 Encounter Details Date Type Department Care Team ([facility] st Contact Info) Description 09/17/2024 Refill [facility]INE [address] [place] [address] Randa Godinez DO [address] [place] [address] Social History Tobacco Use Types Packs/Day Years [...] Description 02/25/2025 2:00 PM EST Office Visit [facility] MED[facility]INE [address] [place] [address] Rebeca Gonzales MD [address] [place] [address] documented as of this encounter Goals Goal Patient Goal Type Associated Problems Recent Progress Patient-Stated? Author Reduce tobacco use (cigarettes, smokeless, etc) Tobacco Use Improving(10/10 3:25 PM EDT) No Cheo Rucker RN documented as of this encounter Visit Diagnoses Not on filedocumented in this encounter Additional Health Concerns Assessment Noted Time PHQ-9 Depression Total Score: 10 023 10:23 AM EDT documented as of this encounter Care Teams Computer Processing Scheduler Relationship Specialty Start Date End Date Randa Godinez DO [address] [place] [phone] PCP - General Family Medicine 09/25/13 documented as of this encounter
--- OUTSIDE RECORDS SUMMARY | 2025-01-21 18:30 | XMS_ITS | Encounter Summary ---
Author Organization [employer] Address [address] [facility] 7 [place] [address] Care Team Providers Care Customer Account Administrator Name Role Phone Randa Godinez DO Primary Care Provider + [phone] Reason for Visit * Reason Onset Date Comments Med Refill 06/01/2024 Encounter Details Date Type Department Care Team ([facility] st Contact Info) Description 06/01/2024 Refill [facility] MED[facility]INE [address] [place] [address] Randa Godinez DO [address] [place] [address] Social History Tobacco Use Types Packs/Day Years [...] Description 02/25/2025 2:00 PM EST Office Visit [facility] MED[facility]INE [address] [place] [phone] Rebeca Gonzales MD [address] [place] [address] documented as of this encounter Goals Goal [...] documented as of this encounter Care Teams Customer Account Administrator Relationship Specialty Start Date End Date Randa Godinez DO [address] [place] [address] PCP - General Family Medicine 09/25/13 documented as of this encounter
--- OUTSIDE RECORDS SUMMARY | 2025-01-21 18:30 | XMS_ITS | Encounter Summary ---
Author Organization [employer] Address [address] [facility] 7 [place] [address] Care Team Providers Care Put In Beat Adjuster Name Role Phone Randa Godinez DO Primary Care Provider + [phone] Reason for Visit * Reason Onset Date Comments Med Refill 12/01/2023 Encounter Details Date Type Department Care Team ([facility] st Contact Info) Description 12/01/2023 Refill [facility] MEDICINE [address] [place] [address] Randa Godinez DO [address] [place] [address] Social History Tobacco Use Types Packs/Day Years Used Date Smoking Tobacco: Former Cigarettes Depression Answer Date Recorded Patient Health Questionnaire-9 [...] Description 02/25/2025 2:00 PM EST Office Visit [facility] [address] [place] [address] Rebeca Gonzales MD [address] [place] [address] documented as of this encounter Visit Diagnoses Not on filedocumented in this encounter Additional Health Concerns Assessment Noted Time PHQ-9 Depression Total Score: 10 023 10:23 AM EDT documented as of this encounter Care Teams Put In Beat Adjuster Relationship Specialty Start Date End Date Randa Godinez DO [address] [place] [address] PCP - General Family Medicine 09/25/13 documented as of this encounter
--- OUTSIDE RECORDS SUMMARY | 2025-01-21 18:30 | XMS_ITS | Encounter Summary ---
Author Organization [employer] Address [address] [facility] 7 [place] [address] Care Team Providers Care Supervisor Stage Carpentry Name Role Phone Randa Godinez DO Primary Care Provider + [phone] Reason for Visit * Reason Onset Date Comments Med Refill 08/28/2024 Encounter Details Date Type Department Care Team ([facility] st Contact Info) Description 08/28/2024 Refill [facility] [address] [place], [place] [phone] Randa Godinez DO [address] [place] [address] Social History Tobacco Use Types Packs/Day Years [...] Description 02/25/2025 2:00 PM EST Office Visit [facility] [address] [place] [id number] Rebeca Gonzales MD [address] [place] [address] documented as of this encounter Goals Goal [...] documented as of this encounter Care Teams Supervisor Stage Carpentry Relationship Specialty Start Date End Date Randa Godinez DO [address] [place] [id number] PCP - General Family Medicine 09/25/13 documented as of this encounter
--- OUTSIDE RECORDS SUMMARY | 2025-01-21 18:30 | XMS_ITS | Encounter Summary ---
Author Organization [employer] Address [address] [facility] [address] [place] [address] Care Team Providers Care Supervisor Stitching Department Name Role Phone Randa Godinez DO Primary Care Provider + [phone] Reason for Visit * Reason Onset Date Comments Med Refill 12/01/2023 Encounter Details Date Type Department Care Team (Late st Contact Info) Description 12/01/2023 Refill [facility] [address] [place], [place] [phone] Randa Godinez DO [address] [place] [address] Vitamin D deficiency Social History Tobacco Use Types Packs/Day Years [...] Description 02/25/2025 2:00 PM EST Office Visit [facility] [address] [place] [address] Rebeca Gonzales MD [address] [place] [address] documented as of this encounter Visit Diagnoses Diagnosis Vitamin D deficiency documented in this encounter Additional Health Concerns Assessment Noted Time PHQ-9 Depression Total Score: 10 023 10:23 AM EDT documented as of this encounter Care Teams Supervisor Stitching Department Relationship Specialty Start Date End Date Randa Godinez DO [address] [place] [address] PCP - General Family Medicine 09/25/13 documented as of this encounter
--- OUTSIDE RECORDS SUMMARY | 2025-01-21 18:30 | XMS_ITS | Clinical Summary ---
Author Organization [employer] Address [address] [facility] [address] [place] [address] Care Team Providers Care Metallurgical Or Materials Technician Name Role Phone Randa Godinez Primary Care Provider [phone] Allergies No known active allergies Medications * This document contains information received from the source organization and may not represent a complete record from that organization. Ventolin HFA 108 (90 Base) MCG/ACT inhaler INHALE 2 PUFFS BY MOUTH EVERY 4 TO 6 HOURS NEEDED 02/01/20 22 Active cloNIDine (Catapres) 0.1 MG tablet TAKE 1 TABLET BY MOUTH TWICE DAILY 12/09/19 22 Active hydrOXYzine HCl (Atarax) 25 MG tablet TAKE 1 TABLET BY MOUTH THREE TIMES DAILY NEEDED FOR ANXIETY 12/09/19 22 Active nicotine (Nicoderm, Step 2) 14 MG/24HR patch APPLY 1 PATCH TOPICALLY TO THE SKIN DAILY IN THE MORNING THEN REMOVE AT BEDTIME DIRECTED. DO NOT SMOKE WHILE USING PATCH 12/09/19 22 Active nicotine (Nicoderm, Step 3) 7 MG/24HR patch APPLY 1 PATCH TOPICALLY TO THE SKIN DAILY IN THE MORNING THEN REMOVE AT BEDTIME DIRECTED. DO NOT SMOKE WHILE USING PATCH 12/09/19 22 Active Blood Pressure Monitor kit Check blood pressure once daily and as needed 1 kit 10/18/19 23 Active Diclofenac Sodium 1 % gel Apply 2 g topically if needed in the morning and at bedtime (pain). 100 g 3 07/18/19 24 Active Additional Information Patient not taking.Reported on 01/16/2024 lidocaine (Lidoderm) 5 % patch APPLY 1 PATCH TOPICALLY TO SKIN, LEAVE ON FOR 12 HOURS AND OFF FOR 12 HOURS DIRECTED IN THE MORNING 30 patch 1 07/19/19 24 Active Additional Information Patient not taking.Reported on 01/16/2024 loratadine (Claritin) 10 MG tablet TAKE 1 TABLET BY MOUTH EVERY DAY 90 tablet 1 09/17/19 24 Active Additional Information Patient not taking.Reported on 01/16/2024 Magnesium 400 MG capsule Take 1 capsule by mouth if needed at bedtime (insomnia). 28 capsule 3 03/26/19 25 Active fluticasone (Flonase) 50 MCG/ACT nasal sprayIndicatio ns:Seasonal allergic rhinitis, unspecified trigger Administer 2 sprays into each nostril Once per day. 48 g 3 04/01/19 25 Active varenicline (Chantix) 1 MG tabletIndicati ons:Tobacco dependence syndrome TAKE 1 TABLET BY MOUTH TWICE DAILY WITH A FULL GLASS OF WATER 56 tablet 3 07/03/19 25 Active magnesium oxide (Mag-Ox) 400 MG tablet TAKE 1 TABLET BY MOUTH EVERY DAY AT BEDTIME (FOR SLEEP) 28 tablet 3 08/07/19 25 Active cholecalcifero l (D3 Super Strength) 50 MCG (2000 UT) capsuleIndicat ions:Vitamin D deficiency TAKE 1 CAPSULE BY MOUTH EVERY DAY 90 capsule 3 08/29/19 25 Active baclofen (Lioresal) 10 MG tablet TAKE 1 TABLET BY MOUTH IN THE MORNING, AT NOON AND AT BEDTIME NEEDED FOR MUSCLE SPASMS 60 tablet 2 08/29/19 25 Active melatonin 5 MG tabletIndicati ons:Depressive disorder TAKE 2 TABLETS BY MOUTH EVERY DAY AT BEDTIME NEEDED FOR SLEEP 60 tablet 3 08/29/19 25 Active gabapentin (Neurontin) 300 MG capsule TAKE 1 CAPSULE BY MOUTH THREE TIMES DAILY 90 capsule 3 09/25/19 25 Active Fluticasone-Um eclidin-Vilant (Trelegy Ellipta) 200-62.5-25 MCG/ACT aerosol powder Inhale 1 Inhalation Once per day. 28 each 11 10/28/19 25 Active sildenafil (Viagra) 100 MG tabletIndicati ons:Erectile dysfunction, unspecified erectile dysfunction type TAKE 1 TABLET 1 HOUR BEFORE SEXUAL RELATIONS ONCE DAILY NEEDED. 10 tablet 3 11/13/19 25 Active acetaminophen (Tylenol 8 Hour) 650 MG ER tabletIndicati ons:Pain TAKE 1 TABLET BY MOUTH EVERY 8 HOURS NEEDED FOR PAIN OR FEVER DO NOT BREAK, CRUSH, DISSOLVE OR CHEW 60 tablet 11/28/19 25 Active buprenorphine- naloxone (Suboxone) 4-1 MG per sublingual filmIndication s:Opioid type dependence, continuous (CMS/HCC) (HCC) Place 1 Film under the tongue Once per day. 28 Film 1 12/25/19 25 025 Active Buprenorphine HCl-Naloxone HCl (Suboxone) 8-2 MG SL filmIndication s:Uncomplicate d opioid dependence (CMS/HCC) (HCC) Place 2 Film under the tongue Once per day. 56 Film 1 12/25/19 25 025 Active Buprenorphine HCl-Naloxone HCl (Suboxone) 8-2 MG SL filmIndication s:Uncomplicate d opioid dependence (CMS/HCC) (HCC) Place 2 Film under the tongue Once per day. 56 Film 1 10/31/19 25 025 Discontinued(R eorder (will not trigger notification to Pharmacy)) buprenorphine- naloxone (Suboxone) 4-1 MG per sublingual filmIndication s:Opioid type dependence, continuous (CMS/HCC) ([facility]) Place 1 Film under the tongue Once per day. 28 Film 1 10/31/19 25 025 Discontinued(R eorder (will not trigger notification to Pharmacy)) valACYclovir (Valtrex) 500 MG tabletIndicati ons:Genital herpes simplex, unspecified site Take 1 tablet (500 mg) by mouth 2 times daily for 3 days. 6 tablet 01/16/20 Active Problems Problem Noted Date Diagnosed Date Dental root caries 01/16/2024 Retained dental root 01/16/2024 Common bile duct dilatation 12/27/2023 Diverticulosis 12/27/2023 History of COVID-19 03/21/2023 Spondylosis of lumbar spine 10/17/2022 Chronic low back pain 10/10/2022 Assessment & Plan (06/28/2023 1:33 PM EDT): Sx improved s/p THONG -MRI L-spine w/ facet arthropathy, posterior disc protrusions, w/ L3-L5 foraminal impingement NOV 2022 -continue gabapentin TID, refill sent -encouraged baclofen prn mm spasm -cont tylenol prn -encouraged diclofenac gel and lidocaine patches prn -cont naprosyn prn -f/u with PM as scheduled -advised contact [facility] if sx change or worsen Assessment & Plan (10/17/2022 1:07 PM EDT): - X-ray on 09/29/22 showed moderate-severe lumbar spondylosis - evaluate with MRI - keep appt with PT and [facility] - continue APAP prn - reviewed si/sx to seek a prompt medical attention Assessment & Plan (10/10/2022 5:25 PM EDT): Ddx: piriformis syndrome, sciatica, spondylolysis Appears to be musculoskeletal in nature. Patient had a negative straight leg raise. He stated he had pain at approximately 60 degrees in this right leg but pointed to his hamstrings and lower glutes. He stated there was no lower back or sacroiliac pain during the straight leg raise. More than likely his right piriformis muscle is pressing on his sciatic nerve Referral to PT Anxiety 10/09/2022 Assessment & Plan (10/10/2022 4:54 PM EDT): Before leaving hr-96/ bp-122/78 We discussed that he should be more skeptical of where his medical advise is coming from (I.e. a licensed person RN, CLOTHING BUSHELER, PA, MD/DO), that the person doing his intake vital signs was probably not authorized to give him medical advise or a diagnosis. We then went through his cardiac workup from the ED and this helped him relax some. F/up one month with PCP for mood/anxiety. Healthcare maintenance 03/23/2022 Assessment & Plan (06/28/2023 1:36 PM EDT): -s/p flu vaccine NOV 2022 -COVID vaccine today -s/p Tdap FEB 2020 -s/p pneumovax August 2016 -s/p PCV20 FEB 2023 -encouraged shingrix vaccine -Hep A immune -s/p Hep B vaccine -colonoscopy with diverticulosis JULY 2018 -random labs nml JULY 2022 -STI/HIV screening negative JULY 2022 Pancreatic ductal abnormality 03/23/2022 Assessment & Plan (06/28/2023 1:32 PM EDT): -MRI abd w/ mild intra- and extra-hepatic biliary duct dilatation, no CBD stone seen FEB 2022 -abd US with intra- and extra-hepatic biliary ductal dilatation, unchanged from prior JUN 2023 -CT abd w/ dilated intrahepatic duct and dilated CBD SEP 2021 -f/u w/ GI as scheduled, due NOV 2023 Chronic obstructive lung disease 03/12/2022 Assessment & Plan (06/28/2023 1:29 PM EDT): Sx improved -CT chest w/ centralobular and paraseptal emphysema AUG 2021 -PFTs with moderate obstructive defect DEC 2018 -continue advair BID -continue spiriva daily -continue albuterol as needed -encouraged tobacco cessation -f/u w/ pulm as scheduled Assessment & Plan (10/10/2022 4:15 PM EDT): mMRC = 1 Pulmonary nodules 03/12/2022 Assessment & Plan (06/28/2023 1:30 PM EDT): -CT chest w/ stable small pulmonary nodules SEP 2021->repeat per pulm -f/u w/ pulm as scheduled Depressive disorder 04/10/2016 Assessment & Plan (06/28/2023 1:27 PM EDT): With increased life stressors -continue suboxone program -he denies any SI/HI -he has the number for crisis and contracts for safety -he declines med mgmt -he declines referral to therapist -he declines visit with clinician today -f/u with clinician at suboxone visits Genital herpes simplex 04/10/2016 BMI 34.0-34.9,adult 04/10/2016 Opioid dependence 04/10/2016 Fatty liver 04/10/2016 Assessment & Plan (06/28/2023 1:23 PM EDT): -abd US w/ echogenic liver, no focal lesion AUG 2022 -AFP nml MAR 2021, LFTs nml JULY 2022->repeat prior to next visit -Hep A immune -s/p Hep B vaccine Tobacco dependence 04/10/2016 Assessment & Plan (06/28/2023 1:29 PM EDT): Recently restarted smoking -encouraged tobacco cessation -he will restart chantix when ready Assessment & Plan (10/17/2022 1:10 PM EDT): - pt has Chantix and is choosing a quit date - encouraged to continue working on smoking cessation Assessment & Plan (10/10/2022 4:53 PM EDT): F/up one month with PCP for smoking cessation. Encounters Date Type Department Care Team Description 01/15/2025 Refill [facility] MEDIC[facility] [address] [place] [address] Martina Candelario RN Genital herpes simplex, unspecified site 01/05/2025 Orders Only [facility] MED[facility]INE [address] [place] [id number] Randa Godinez DO Reducible bulge of abdominal wall (Primary Dx) 01/05/2025 Orders Only [facility] MED[facility]INE [address] [place] [address] Randa Godinez DO 12/31/2024 2:00 PM EDT Office Visit [facility] [address] [place] [id number] Rebeca Gonzales MD Uncomplicated opioid dependence (CMS/HCC) (HCC) (Primary Dx) 12/31/2024 Travel 12/23/2024 Refill [facility] [address] [place] [address] Rebeca Gonzales MD Opioid type dependence, continuous (CMS/HCC) (HCC); Uncomplicated opioid dependence (CMS/HCC) (HCC) 12/17/2024 Telephone [facility] [address] [place] [address] Randa Godinez DO 11/27/2024 Refill [facility] & PEDS [address] [place] [address] Randa Godinez DO Pain 11/27/2024 Refill [facility] MED[facility] [address] [place] [address] Randa Godinez DO 11/20/2024 Telephone [facility] [address] [place] [address] Randa Godinez DO 11/13/2024 Telephone [facility] [address] [place] [address] Randa Godinez DO 11/11/2024 Refill [facility] [address] [place] [address] Randa Godinez DO Erectile dysfunction, unspecified erectile dysfunction type 11/05/2024 2:00 PM EDT Clinical Support [address] [address] Cheo Rucker RN Uncomplicated opioid dependence (CMS/HCC) 11/05/2024 Travel 11/03/2024 Telephone [facility] [address] [place] [address] Randa Godinez DO 10/29/[address] [address] Cheo Rucker RN Uncomplicated opioid dependence (CMS/HCC); Opioid type dependence, continuous (CMS/HCC) 10/29/[address] [address] Rebeca Gonzales MD Opioid type dependence, continuous (CMS/HCC) 10/27/2024 11:15 AM EDT Office Visit [address] [address] Randa Godinez DO Fatty liver (Primary Dx); Depressive disorder; Chronic bilateral low back pain with bilateral sciatica; Chronic obstructive pulmonary disease, unspecified COPD type (CMS/HCC); Tobacco dependence; Pulmonary nodules; Pancreatic ductal abnormality; Fatigue, unspecified type; Sleep-disordered breathing; Reducible bulge of abdominal wall; Healthcare maintenance; Dietary counseling; Exercise counseling 10/27/2024 Travel 10/26/[address] [address] Randa Godinez DO Chart Prep 10/21/2024 Patient Outreach [facility] [address] [place] [address] Randa Godinez, Care Coordination ([facility] outreach for [facility] housing search-referral completed ) from Last 3 Months Immunizations Immunization Administration Dates Next Due Hep A, Adult 07/06/2010,12/23/2009 Hep B, adult 02/13/2017, 7,08/09/2016,06/22,01/26/2010,12/23/2009 Influenza Injectable Quadriv alant Preservative Free IIV4 MDCK 02/14/2022 Influenza injectable quadriv alent IIV4 with preservative 11/20/2018,01/26/2016 Influenza injectable quadriv alent preservative free 11/15/2022,02/16/2020,12/27/2017,02/13,12/17/2014 Influenza, IIV3, injectable 12/10/2013, 1 Influenza, Split (incl. floresita fied surface antigen) 01/29/2013,12/13/2011 Influenza, seasonal, injecta ble, preservative free 12/27/2023 Pfizer Covid-19 Vaccine 12+ 06/28/2023 Pfizer Covid-19 Vaccine 12+ Bivalent 03/23/2022 Pneumococcal Conjugate PCV 20 02/08/2023 Pneumococcal Polysaccharide PPSV23 08/09/2016 Tdap 02/16/2020,12/23/2009 Social History Tobacco Use Types Packs/Day Years Used Date Smoking Tobacco: Former Cigarettes Tobacco Cessation:Counseling Given: Not Answered Alcohol Use Standard Drinks/Week Comments Defer 0 (1 standard drink = 0.6 oz pur e alcohol) Depression Answer Date Recorded Patient Health Questionnaire-9 Score 16 10/27/2024 Patient Health Questionnaire-9 Score 16 10/27/2024 Last PHQ-9: Questionnaire Data Not on file 0 10/27/2024 Housing Stability Answer Date Recorded What is your housing situation today? I have alon bruce 10/20/[address] you li ve. Do you have problems with any of the following? None of the above 10/20/2024 Food Insecurity Answer Date Recorded Within the past 12 months, y ou worried that your food would run out before you got money to buy more: Sometimes True 2024 Within the past 12 months,th e food you bought just didn't last and you didn't have enough money to get more: Sometimes True 10/20/2024 Transportation Answer Date Recorded In the past 12 months, has l ack of transportation kept you from medical appts, meetings, work or from getting things needed for daily living? No 10/20/2024 Utilities Answer Date Recorded In the past 12 months, has t he electric, gas, oil or water company threatened to shut off services in your home? No 10/20/2024 Depression Answer Date Recorded Patient Health Questionnaire-2 Score 4 10/27/2024 Internet Access Answer Date Recorded Internet Access Q1 Yes 10/20/2024 Internet Access Q2 Not on file 10/20/2024 Sex and Gender Information Value Date Recorded Sex Assigned at Male 01/08/2022 10:18 AM EDT Legal Sex Male 10:18 AM EDT Gender Identity Male 01/08/2022 10:18 AM EDT Sexual Orientation Choose not to disclose 2021 10:18 AM EDT Last Filed Vital Signs Vital Sign Reading Time Taken Comments Blood Pressure 130/70 10/27/2024 11:27 AM EDT Pulse 78 10/27/2024 11:27 AM EDT Temperature 36.8 C (98.3 F) 10/27/2024 11:27 AM EDT Respiratory Rate 21 10/27/2024 11:27 AM EDT Oxygen Saturation 95% 10/27/2024 11:27 AM EDT Inhaled Oxygen Concentration - - Weight 99.3 kg (219 lb) 10/27/2024 11:27 AM EDT Height 170.2 cm (5' 7 ) 10/27/2024 11:27 AM EDT Body Mass Index 34.3 10/27/2024 11:27 AM EDT Plan of Treatment Upcoming Encounters Date Type Department Care Team (Late st Contact Info) Description 02/25/2025 2:00 PM EST Office Visit [facility] [address] [place] [address] Rebeca Gonzales MD [address] [place] [address] Health Maintenance Due Date Last Done Comments CT Colonography 1965 Colonoscopy 1965 Colorectal Cancer Screening 1965 Dental Oral Exam 1965 FIT DNA/Cologuard 1965 FIT 1965 FOBT 1965 Sigmoidoscopy 1965 Dental Prophylaxis 08/25/2010 02/23/2010 Dental X-Ray: Bitewings 02/24/2011 02/23/2010 RSV Patients and Patients Aged 60 years or older (1 - Risk 50-74 years 1-dose series) 12/01/2015 Zoster Vaccines (1 of 2) 12/01/2015 COVID-19 Vaccine ( - season) 2024 06/28/2023, 03/23/2022, 07/04/2020, Additional history exists Influenza Vaccine (#1) 2024 , 11/15/2022, 02/14/2022, Additional history exists Depression Monitoring 04/29/2025 10/27/2024, 025 SDOH Screening 10/20/2025 10/20/2024 Alcohol/Substance Use Screening 10/27/2025 10/27/2024 Disability Screening 10/27/2025 10/27/2024 Tobacco Screening 10/27/2025 10/27/2024 Dental X-Ray: Full Mouth 10/18/2026 10/18/2023, 02/08 Lipid Panel 10/28/2029 10/28/2024, 10/09, 07/09/2022, Additional history exists DTaP/Tdap/Td Vaccines (3 - Td or Tdap) 02/15/2030 02/16/2020, 12/23/2009 Hepatitis A Vaccines Completed 07/06/2010, 12/24/19 10 Hepatitis B Vaccines Completed 02/13/2017, 10/11/2016, 08/09/2016, Additional history exists Pneumococcal Vaccine: 50+ Years Completed 02/08/2023, 08/09/2016 HIV Screening Completed 10/28/2024, 10/09, 07/09/2022, Additional history exists Hepatitis C Screening Completed 10/28/2024 , 10/25/2023, 07/09/2022, Additional history exists HIB Vaccines Aged Out No longer eligi [...] patient's age to complete this topic Meningococcal Vaccine Aged Out No kulwinder tyrel eligible based on patient's age to complete this topic RSV under 20 months Aged Out No longe r eligible based on patient's age to complete this topic Rotavirus Vaccines Aged Out No longer eligible based on patient's age to complete this topic Goals Goal Patient Goal Type Associated Problems Recent Progress Patient-Stated? Author Reduce tobacco use (cigarettes, smokeless, etc) Tobacco Use Improving(10/10 3:25 PM EDT) No Cheo Rucker, pinion and wheel truer Procedure Name Priority Date/Time Associated Diagnosis Comments POCT KRISTY-14 URINE DRUG SCREEN Routine 12/31/2024 2:00 PM EDT Uncomplicated opioid dependence (CMS/HCC) (HCC) LIVER FIBROSIS, FIBROTEST ACTITEST PANEL Routine 10/28/2024 10:35 AM EDT COMPREHENSIVE METABOLIC PANEL Routine 10/28/2024 10:35 AM EDT PROTHROMBIN TIME-INR Routine 10/28/2024 10:35 AM EDT CBC WITH AUTO DIFFERENTIAL Routine 10/28/2024 10:35 AM EDT PSA, SCREEN Routine 10/28/2024 10:35 AM EDT Fatigue, unspecified type IRON AND TOTAL IRON BINDING CAPACITY Routine 10/28/2024 10:35 AM EDT Fatty liver Depressive disorder Chronic bilateral low back pain with bilateral sciatica Chronic obstructive pulmonary disease, unspecified COPD type (CMS/HCC) Tobacco dependence Pulmonary nodules Pancreatic ductal abnormality Fatigue, unspecified type Sleep-disordered breathing Reducible bulge of abdominal wall Healthcare maintenance Dietary counseling Exercise counseling FERRITIN Routine 10/28/2024 10:35 AM EDT Fatty liver Depressive disorder Chronic bilateral low back pain with bilateral sciatica Chronic obstructive pulmonary disease, unspecified COPD type (CMS/HCC) Tobacco dependence Pulmonary nodules Pancreatic ductal abnormality Fatigue, unspecified type Sleep-disordered breathing Reducible bulge of abdominal wall Healthcare maintenance Dietary counseling Exercise counseling VITAMIN B12/FOLATE, SERUM PANEL Routine 10/28/2024 10:35 AM EDT Fatty liver Depressive disorder Chronic bilateral low back pain with bilateral sciatica Chronic obstructive pulmonary disease, unspecified COPD type (CMS/HCC) Tobacco dependence Pulmonary nodules Pancreatic ductal abnormality Fatigue, unspecified type Sleep-disordered breathing Reducible bulge of abdominal wall Healthcare maintenance Dietary counseling Exercise counseling ALPHA FETOPROTEIN, TUMOR MARKER Routine 10/28/2024 10:35 AM EDT Fatty liver Depressive disorder Chronic bilateral low back pain with bilateral sciatica Chronic obstructive pulmonary disease, unspecified COPD type (CMS/HCC) Tobacco dependence Pulmonary nodules Pancreatic ductal abnormality Fatigue, unspecified type Sleep-disordered breathing Reducible bulge of abdominal wall Healthcare maintenance Dietary counseling Exercise counseling HEPATITIS B SURFACE ANTIBODY, QUALITATIVE Routine 10/28/2024 10:35 AM EDT Fatty liver Depressive disorder Chronic bilateral low back pain with bilateral sciatica Chronic obstructive pulmonary disease, unspecified COPD type (CMS/HCC) Tobacco dependence Pulmonary nodules Pancreatic ductal abnormality Fatigue, unspecified type Sleep-disordered breathing Reducible bulge of abdominal wall Healthcare maintenance Dietary counseling Exercise counseling RPR (MONITOR) W/REFL TITER Routine 10/28/2024 10:35 AM EDT Fatty liver Depressive disorder Chronic bilateral low back pain with bilateral sciatica Chronic obstructive pulmonary disease, unspecified COPD type (CMS/HCC) Tobacco dependence Pulmonary nodules Pancreatic ductal abnormality Fatigue, unspecified type Sleep-disordered breathing Reducible bulge of abdominal wall Healthcare maintenance Dietary counseling Exercise counseling HEPATITIS C AB W/REFL TO HCV RNA, QN, PCR Routine 10/28/2024 10:35 AM EDT Fatty liver Depressive disorder Chronic bilateral low back pain with bilateral sciatica Chronic obstructive pulmonary disease, unspecified COPD type (CMS/HCC) Tobacco dependence Pulmonary nodules Pancreatic ductal abnormality Fatigue, unspecified type Sleep-disordered breathing Reducible bulge of abdominal wall Healthcare maintenance Dietary counseling Exercise counseling HIV 1/2 ANTIGEN/ANTIBODY, FOURTH GENERATION W/RFL Routine 10/28/2024 10:35 AM EDT Fatty liver Depressive disorder Chronic bilateral low back pain with bilateral sciatica Chronic obstructive pulmonary disease, unspecified COPD type (CMS/HCC) Tobacco dependence Pulmonary nodules Pancreatic ductal abnormality Fatigue, unspecified type Sleep-disordered breathing Reducible bulge of abdominal wall Healthcare maintenance Dietary counseling Exercise counseling HEPATITIS B SURFACE ANTIGEN, EIA Routine 10/28/2024 10:35 AM EDT Fatty liver Depressive disorder Chronic bilateral low back pain with bilateral sciatica Chronic obstructive pulmonary disease, unspecified COPD type (CMS/HCC) Tobacco dependence Pulmonary nodules Pancreatic ductal abnormality Fatigue, unspecified type Sleep-disordered breathing Reducible bulge of abdominal wall Healthcare maintenance Dietary counseling Exercise counseling ALBUMIN, RANDOM URINE W/CREATININE Routine 10/28/2024 10:35 AM EDT Fatty liver Depressive disorder Chronic bilateral low back pain with bilateral sciatica Chronic obstructive pulmonary disease, unspecified COPD type (CMS/HCC) Tobacco dependence Pulmonary nodules Pancreatic ductal abnormality Fatigue, unspecified type Sleep-disordered breathing Reducible bulge of abdominal wall Healthcare maintenance Dietary counseling Exercise counseling HEMOGLOBIN A1C Routine 10/28/2024 10:35 AM EDT Fatty liver Depressive disorder Chronic bilateral low back pain with bilateral sciatica Chronic obstructive pulmonary disease, unspecified COPD type (CMS/HCC) Tobacco dependence Pulmonary nodules Pancreatic ductal abnormality Fatigue, unspecified type Sleep-disordered breathing Reducible bulge of abdominal wall Healthcare maintenance Dietary counseling Exercise counseling HEPATIC FUNCTION PANEL Routine 10:35 AM EDT Fatty liver Depressive disorder Chronic bilateral low back pain with bilateral sciatica Chronic obstructive pulmonary disease, unspecified COPD type (CMS/HCC) Tobacco dependence Pulmonary nodules Pancreatic ductal abnormality Fatigue, unspecified type Sleep-disordered breathing Reducible bulge of abdominal wall Healthcare maintenance Dietary counseling Exercise counseling TSH Routine 10/28/2024 10:35 AM EDT Fatty liver Depressive disorder Chronic bilateral low back pain with bilateral sciatica Chronic obstructive pulmonary disease, unspecified COPD type (CMS/HCC) Tobacco dependence Pulmonary nodules Pancreatic ductal abnormality Fatigue, unspecified type Sleep-disordered breathing Reducible bulge of abdominal wall Healthcare maintenance Dietary counseling Exercise counseling LIPID PANEL, STANDARD Routine 10/28/2024 10:35 AM EDT Fatty liver Depressive disorder Chronic bilateral low back pain with bilateral sciatica Chronic obstructive pulmonary disease, unspecified COPD type (CMS/HCC) Tobacco dependence Pulmonary nodules Pancreatic ductal abnormality Fatigue, unspecified type Sleep-disordered breathing Reducible bulge of abdominal wall Healthcare maintenance Dietary counseling Exercise counseling VITAMIN D,25-OH,TOTAL,IA Routine 10/28/2024 10:35 AM EDT Fatty liver Depressive disorder Chronic bilateral low back pain with bilateral sciatica Chronic obstructive pulmonary disease, unspecified COPD type (CMS/HCC) Tobacco dependence Pulmonary nodules Pancreatic ductal abnormality Fatigue, unspecified type Sleep-disordered breathing Reducible bulge of abdominal wall Healthcare maintenance Dietary counseling Exercise counseling T4, FREE Routine 10/28/2024 10:35 AM EDT Fatty liver Depressive disorder Chronic bilateral low back pain with bilateral sciatica Chronic obstructive pulmonary disease, unspecified COPD type (CMS/HCC) Tobacco dependence Pulmonary nodules Pancreatic ductal abnormality Fatigue, unspecified type Sleep-disordered breathing Reducible bulge of abdominal wall Healthcare maintenance Dietary counseling Exercise counseling PANORAMIC RADIOGRAPHIC IMAGE Routine 10/18/2023 11:30 AM EDT PROPHYLAXIS - ADULT Routine 02/23/2010 1 2:00 AM EST INTRAORAL - COMPLETE SERIES OF RADIOGRAPHIC IMAGES Routine 02/23/2010 12:00 AM EST from Last 3 Months or Most Recently Relevant to Health Maintenance Results * (ABNORMAL) POCT KRISTY-14 Urine Drug Screen (12/31/2024 2:00 PM EDT) THC Negative Negative Cocaine Screen, Urine Negative Negative Opiate Screen, Urine Negative Negative Methamphetamine Screen Urine Negative Negative Amphetamine Screen, Urine Negative Negative Benzodiazepines Screen, Urine Negative Negative Barbiturate Screen, Urine Negative Negative Methadone Screen, Urine Negative Negative Buprenophine Screen, Urine Positive(A) Negative TCA, Urine Negative Negative MDMA Urine Negative Negative ng/mL Oxycodone Screen, Urine Negative Negative Phencyclidine (PCP), Urine Negative Negative Fentanyl, Urine Negative Negative Urine Urine specimen obtained by clean catch procedure / Unknown 12/31/2024 2:00 PM EDT Rebeca Gonzales MD POINT OF CARE TEST ENTER/DAGMAR T ORDERABLES Final Result * PSA, Screen (10/28/2024 10:35 AM EDT) PSA, Total 0.73 <0.05 - 4.0 ng/mL [facility] Comment:PSA methodology: Aailyah Reese i ChemiluminescentMicroparticle Immunoassay (CMIA) Blood Venous blood specimen / Unknown 10/28/2024 10:35 AM EDT 10/28/2024 12:24 PM EDT Randa Godinez DO LAB BLOOD ORDERABLES Final R esult [facility] [address] [place] [phone] * Vitamin D, 25-Hydroxy, Total, Immunoassay (10/28/2024 10:35 AM EDT) Vitamin D 25-OH Total 32.4 >30 ng/mL [facility] Comment: Health Based Reference Values*< 20 ng/mL Rrlpictnh78-23 ng/mL Insufficient> 30 ng/mL Sufficient*Bennie CARNEY. N Engl J Med. 2007;357:266-280There is no well-established upper level of normal vitamin Dlevels. Some laboratories use 50 ng/mL as an upper limit ofnormal. However, toxicity is patient-dependent and may occurat any level. Careful correlation with the patient'spresentation is necessary and, if there is concern forvitamin D toxicity, treatment should be consideredirrespective of the serum level.Care must be taken in interpreting Vitamin D results fromdifferent laboratories and methodologies. Published datademonstrated that results from patients undergoinghemodialysis may show a negative bias when tested withvarious automated 25-OH vitamin D assays when compared toLC-MS/MS.When testing samples from patients whose predominant form ofVitamin D is Vitamin D2, such as patients receiving VitaminD2 supplementation, results that are subtherapeutic shouldbe confirmed with another method such as LC-MS/MS. Blood Venous blood specimen / Unknown 10/28/2024 10:35 AM EDT 10/28/2024 12:29 PM EDT [facility] BLOOD ORDERABLES Final R esult Performing Organization Address [facility]/ZIP Co de Phone Number [facility] [address] [place] [phone] * Vitamin B12 (Cobalamin) and Folate Panel, Serum (10/28/2024 10:35 AM EDT) Vitamin B12 356 200 - 900 pg/mL [facility] Comment:NORMAL 200-900 PG/M L INDETERMINATE 160-199 PG/ML DEFICIENT < 160 PG/ML Folate 12.4 > or = 4.0 ng/mL [facility] Comment:Reference Values:> o r = 4.0 ng/mL< 4.0 ng/mL suggests folate deficiency Methotrexate, aminopterin and folinic acid(leucovorin) are chemotherapeutic agents whose molecularstructures are similar to folate; therefore, the Architectfolate assay cannot be used for patients using these drugs. Blood 10/28/2024 10:3 5 AM EDT 10/28/2024 12:24 PM EDT [facility] LAB BLOOD ORDERABLES Final R esult Performing Organization Address [facility] Co de Phone Number [facility] [address] [place] [phone] * Liver Fibrosis (HCV), FibroTest-ActiTest Panel (10/28/2024 10:35 AM EDT) Liver Fibrosis Score 0.21 [facility] Liver Fibrosis Stage F0-F1 [facility] Liver Fibrosis Interpretation SEE NOTE [facility] Comment:no fibrosisFibro Keisha t Score (f) Metavir Score f>=0 and f<=0.21 : F0 (no fibrosis)f>0.21 and f<=0.27 : F0-F1 (no fibrosis)f>0.27 and f<=0.31 : F1 (minimal fibrosis)f>0.31 and f<=0.48 : F1-F2 (minimal fibrosis)f>0.48 and f<=0.58 : F2 (moderate fibrosis)f>0.58 and f<=0.72 : F3 (advanced fibrosis)f>0.72 and f<=0.74 : F3-F4 (advanced fibrosis)f>0.74 and f<=1.00 : F4 (severe fibrosis) Nec Inflam Act Score 0.14 [facility] Nec Inflam Act Grade A0 [facility] Nec Inflam Act Interpretation SEE NOTE [facility] Comment:no activityActiTest Score (a) Metavir Score a>=0 and a<=0.17 : A0 (no activity)a>0.17 and a<=0.29 : A0-A1 (no activity)a>0.29 and a<=0.36 : A1 (minimal activity)a>0.36 and a<=0.52 : A1-A2 (minimal activity)a>0.52 and a<=0.60 : A2 (significant activity)a>0.60 and a<=0.62 : A2-A3 (significant activity)a>0.62 and a<=1.00 : A3 (severe activity) KWR-Rdvdw-5-Macroglo bulin 210 106 - 279 mg/dL [facility] FIB-Haptoglobin 141 43 - 212 mg/dL [facility] FIB-Apolipoprotein A1 144 94 - 176 mg/dL [facility] FIB-Total Bilirubin 0.4 0.2 - 1.2 mg/dL [facility] FIB-GGT 19 3 - 85 U/L [facility] FIB-ALT 32 9 - 46 U/L [facility] Reference ID [id number] [facility] Footnote SEE NOTE [facility] Comment: The reliability of results is dependent on compliance withthe preanalytical and analytical conditions recommended byBioPredictive. The tests have to be deferred for: acutehemolysis, acute hepatitis, acute inflammation, extrahepatic cholestasis. The advice of a specialist should besought for interpretation in chronic hemolysis and Gilbert'ssyndrome. The test interpretation is not validated in livertransplant patients. Isolated extreme values of one of thecomponents should lead to caution in interpreting theresults. In case of discordance between a biopsy result matthew test, it is recommended to seek the advice of aspecialist. The causes of these discordances could be due toa flaw of the test or to a flaw in the biopsy: i.e. a liverbiopsy has a 33% variability rate for one fibrosis stage.FibroTest is interpretable for chronic hepatitis B and C,alcoholic and non alcoholic steatosis. ActiTest isinterpretable for chronic hepatitis B and C.The performance characteristics have been determined by[facility]. Ithas not been cleared or approved by the U.S. Food and DrugAdministration. Performance characteristics refer to theanalytical performance of the test.Click[employer], the associated logo, [employer] and all associated [employer] polo are theregistered trademarks of [employer]. All third partymarks - (R) and (TM) - are the property of their respectiveowners. (C) 5923-3075 [employer]. Allrights reserved.THIS TEST WAS PERFORMED AT:[employer] [id number] [place] [id number] SOSA MD,PHD,AURY 10/28/2024 10:3 5 AM EDT 10/28/2024 12:24 PM EDT us Generic External Data Provider LAB BLOOD ORDERAB LES Final Result [facility] [address] [place] [phone] * Albumin, Random Urine W/Creatinine (10/28/2024 10:35 AM EDT) Creatinine, Urine 108.03 mg/dL [facility] Microalbumin Urine 6.0 mg/L [facility] Microalbum Creatinine Ratio Ur 5.5 <30 ug/mg cr [facility] Comment:Albumin/Creatinine R atio Reference Ranges: Normal: < 30 ug/mg creatinine Microalbuminuria: 30 - 300 ug/mg creatinineClinical Albuminuria: > 300 ug/mg creatinine Urine (Urine, Random) 10/28/2024 10:35 AM EDT 10/28/2024 11:45 AM EDT Randa Godinez DO LAB URINE ORDERABLES Final R esult [facility] [address] [place] [phone] * (ABNORMAL) CBC auto differential (10/28/2024 10:35 AM EDT) White Blood Count 6.3 4.8 - 10.8 X10*3/uL [facility] Red Blood Count 4.54(L) 4.60 - 5.80 X10*6/uL [facility] Hemoglobin 13.3(L) 14.0 - 18.0 g/dl [facility] Hematocrit 39.4(L) 42.0 - 52.0 % [facility] Mean Corpuscular Volume 86.8 80.0 - 98.0 fL [facility] Mean Corpuscular Hemoglobin 29.3 27.0 - 33.0 pg [facility] Mean Corpuscular HGB Conc 33.8 31.0 - 36.0 g/dl [facility] Red Cell Distribution Width 12.3 11.0 - 16.0 % [facility] Platelet Count 247 160 - 400 X10*3/uL [facility] Mean Platelet Volume 10.3 9.4 - 12.4 fL [facility] Neutrophils Percent Auto 49.5 45 - 73 % [facility] Imm Gran Pct Auto 0.2 0.0 - 0.4 % [facility] Lymphocytes Percent Auto 39.6 20 - 40 % [facility] Monocytes Percent Auto 7.2 2 - 11 % [facility] Eosinophils Percent Auto 2.9 0 - 4 % [facility] Basophils Percent Auto 0.6 0 - 2 % [facility] NRBC Pct Auto 0.0 0.0 - 0.2 /100WBC [facility] Neutrophils Absolute Auto 3.1 2.0 - 8.3 x10*3/uL [facility] Imm Gran Abs Auto 0.01 0.00 - 0.03 X10*3/uL [facility] Lymphocytes Absolute Auto 2.5 1.2 - 4.9 X10*3/uL [facility] Monocytes Absolute Auto 0.5 0.1 - 1.2 X10*3/uL [facility] Eosinophils Absolute Auto 0.2 0.0 - 0.4 X10*3/uL [facility] Basophils Absolute Auto 0.0 0.0 - 0.2 X10*3/uL [facility] NRBC Abs Auto 0.000 0.0 - 0.012 X10*3/uL [facility] 10/28/2024 10:3 5 AM EDT 10/28/2024 12:19 PM EDT us Generic External Data Provider LAB BLOOD ORDERAB LES Final Result Performing Organization Address [facility]/ZIP Co de Phone Number [facility] [address] [place] [address] [phone] * Hepatitis C Antibody with Reflex to HCV, RNA, Quantitative, Real-Time PCR (10/28/2024 10:35 AM EDT) Hepatitis C Antibody Nonreactive Nonreactive [facility] Comment:Antibodies to HCV no t detected; does not exclude early acuteHCV infection. Blood Venous blood specimen / Unknown 10/28/2024 10:35 AM EDT 10/28/2024 12:24 PM EDT us Randa Godinez DO LAB BLOOD ORDERABLES Final R esult Performing Organization Address City/[facility]/ZIP Co de Phone Number [facility] [address] [place] [address] [phone] * Iron And Total Iron Binding Capacity (10/28/2024 10:35 AM EDT) Iron 107 45 - 160 mcg/dL [facility] Total Iron Binding Capacity 333 228 - 428 mcg/dL [facility] Percent Iron Saturation 32 15 - 50 % [facility] Unsaturated Iron Binding 226 ug/dL [facility] Blood Venous blood specimen / Unknown 10/28/2024 10:35 AM EDT 10/28/2024 12:29 PM EDT [facility] BLOOD ORDERABLES Final R esult Performing Organization Address [facility] Co de Phone Number [facility] [address] [place] [address] [phone] * Alpha-Fetoprotein, Tumor Marker (10/28/2024 10:35 AM EDT) Pathologist [facility] Alpha Fetoprotein 3.0 <6.1 ng/mL [facility] Comment:This test was perfor med using the Giovanny Coulterchemiluminescent method. Values obtained fromdifferent assay methods cannot be usedinterchangeably. AFP levels, regardless ofvalue, should not be interpreted as absoluteevidence of the presence or absence of disease.THIS TEST WAS PERFORMED AT:[employer] [address] [employer] [place] [id number] BAEZ MD Blood Venous blood specimen / Unknown 10/28/2024 10:35 AM EDT 10/28/2024 12:24 PM EDT Randa Gretchen DO LAB BLOOD ORDERABLES Final R esult Performing Organization Address City/[facility]/ZIP Co de Phone Number [facility] [address] [place] [phone] * Hepatitis B surface antigen, EIA (10/28/2024 10:35 AM EDT) Pathologist [facility] Hepatitis B Surface Ag Negative Negative [facility] Blood Venous blood specimen / Unknown 10/28/2024 10:35 AM EDT 10/28/2024 12:24 PM EDT Randa Godinez DO LAB BLOOD ORDERABLES Final R esult Performing Organization Address City/[facility]/ZIP Co de Phone Number [facility] [address] [place] [phone] * RPR (Monitor) with Reflex to??Titer (10/28/2024 10:35 AM EDT) RPR (Monitor) w/Refl Titer NON-REACTI VE NON-REACT OSMIN [facility] Comment:THIS TEST WAS PERFOR MED AT:[employer] [address] [place] [phone] BAEZ MD Rapid Plasma Reagin Ab Titer TNP [facility] Blood Venous blood specimen / Unknown 10/28/2024 10:35 AM EDT 10/28/2024 12:29 PM EDT Randa Godinez DO LAB BLOOD ORDERABLES Final R esult Performing Organization Address City/[facility]/ZIP Co de Phone Number [facility] [address] [place] [phone] * HIV-1/2 Antigen and Antibodies, Fourth Generation, with Reflexes (10/28/2024 10:35 AM EDT) HIV AB/AG Nonreactive Nonreactive [facility] Comment:HIV-1 p24 Ag and/or HIV-1/HIV-2 Ab not detected.A test result that is nonreactive does not exclude thepossibility of exposure to or infection with HIV-1 and/orHIV-2. Nonreactive results in this assay for individualswith prior exposure to HIV-1 and/or HIV-2 may be due toantigen and antibody levels that are below the limit ofdetection of this assay.The KBLE HIV Ag/Ab Combo assay result andsupplemental assay results should be interpreted inconjunction with the patient's clinical presentation,history and other laboratory results. If the results areinconsistent with clinical evidence, additional testing issuggested to confirm the result. Blood Venous blood specimen / Unknown 10/28/2024 10:35 AM EDT 10/28/2024 12:24 PM EDT Randa Godinez DO LAB BLOOD ORDERABLES Final R esult Performing Organization Address [facility] Co de Phone Number [facility] [address] [place] [phone] * Hepatitis B Surface Antibody, Qualitative (10/28/2024 10:35 AM EDT) ~Hepatitis B Surface Antibody NONREACTIVE Nonreactive [facility] Comment:Nonreactive: < 8.00 mIU/mL Blood Venous blood specimen / Unknown 10/28/2024 10:35 AM EDT 10/28/2024 12:24 PM EDT Randa Joynerana DO LAB BLOOD ORDERABLES Final R esult Performing Organization Address [facility] de Phone Number [facility] [address] [place] [phone] * Prothrombin Time-INR (10/28/2024 10:35 AM EDT) Prothrombin Time 11.6 10.9 - 12.4 SEC [facility] INTERNATIONAL NORM RATIO 1.0 0.9 - 1.1 [facility] Comment:INTERNATIONAL NORMAL IZED RATIO (INR) REFERENCE RANGES Reference RangeFor patients not on anticoagulant therapy: 0.9 - 1.1INR ranges for oral anticoagulanttherapy:For prevention and treatment of venous thrombosis and pulmonary embolism: 2.0 - 3.0For acute myocardial infarction with aspirin therapy: 2.0 - 3.0For acute myocardial infarction without aspirin therapy: 3.0 - 4.0For patients with mechanical prosthetic heart valves: 2.5 - 3.5 10/28/2024 10:3 5 AM EDT 10/28/2024 12:19 PM EDT us Generic External Data Provider LAB BLOOD ORDERAB LES Final Result Performing Organization Address [facility] Co de Phone Number [facility] [address] [place] [phone] * TSH (10/28/2024 10:35 AM EDT) Thyroid Stimulating Hormone 1.00 0.32 - 4.0 uIU/mL [facility] Comment:TSH 3rd Generation ( [facility]) Blood Venous blood specimen / Unknown 10/28/2024 10:35 AM EDT 10/28/2024 12:29 PM EDT us Randa Godinez DO LAB BLOOD ORDERABLES Final R esult Performing Organization Address [facility] Co de Phone Number [facility] [address] [place] [address] [phone] * T4, Free (10/28/2024 10:35 AM EDT) Free T4 (Free Thyroxine) 1.01 0.71 - 1.85 ng/dL [facility] Blood Venous blood specimen / Unknown 10/28/2024 10:35 AM EDT 10/28/2024 12:29 PM EDT us Randa Godinez DO LAB BLOOD ORDERABLES Final R esult Performing Organization Address [facility] Co de Phone Number [facility] [address] [place] [address] [phone] * Hemoglobin A1c (10/28/2024 10:35 AM EDT) Hemoglobin A1c 5.4 <6.0 % [facility] Comment:Hemoglobin A1C Refer ence Range Adults: 4.8 - 6.0 % Non diabetic: < 6.0 % Goal: < 7.0 %Additional Action Suggested: > 8.0 %Note: Hemoglobin A1c results are invalid for patients with abnormal amounts of HbF. Blood transfusions may impact the HbA1c concentration in the patient sample. Estimated Average Glucose 108 mg/dL [facility] Comment:eAG = Estimated ave rage glucose which is %A1C expressed asaverage glucose, using the formula of the N2J-XivetonKcrodnr Glucose study (ADAG), Diabetes Care, Vol.31,#8,2007 Blood Venous blood specimen / Unknown 10/28/2024 10:35 AM EDT 10/28/2024 12:19 PM EDT us Randa Godinez DO LAB BLOOD ORDERABLES Final R esult Performing Organization Address [facility]/ZIP Co de Phone Number [facility] [address] [place] [address] [phone] * Ferritin (10/28/2024 10:35 AM EDT) Ferritin 225 20 - 250 ng/mL [facility] Blood Venous blood specimen / Unknown 10/28/2024 10:35 AM EDT 10/28/2024 12:29 PM EDT us Randa Godinez DO LAB BLOOD ORDERABLES Final R esult Performing Organization Address [facility] Co de Phone Number [facility] [address] [place] [address] [phone] * Hepatic Function Panel (10/28/2024 10:35 AM EDT) Bilirubin, Direct 0.2 0.0 - 0.5 mg/dL [facility] Blood Venous blood specimen / Unknown 10/28/2024 10:35 AM EDT 10/28/2024 12:29 PM EDT us Randa Godinez DO LAB BLOOD ORDERABLES Final R esult Performing Organization Address City/[facility] Co de Phone Number [facility] [address] [place] [address] [phone] * (ABNORMAL) Lipid Panel, Standard (10/28/2024 10:35 AM EDT) Triglycerides 234(H) <150 mg/dL [facility] Comment:Desirable Triglyceri de: less than 150 mg/dLBorderline High Triglyceride 150-199 mg/dLHigh Triglyceride: 200-499 mg/dLVery High Triglyceride: greater than or equal to 5OO mg/dL Cholesterol 176 <200 mg/dL [facility] Comment:Desirable Cholestero l: less than 200 mg/dLBorderline High Cholesterol: 200-239 mg/dLHigh Cholesterol: greater than 239 mg/dL LDL Cholesterol Calculated 93 <100 mg/dL [facility] Comment:Desirable LDL: less than 100 mg/dLNear Optimal/Above Optimal LDL: 110- 129 mg/dLBorderline High LDL: 130-159 mg/dLHigh LDL: 160-189 mg/dLVery High LDL: greater than or equal to 190 mg/dL HDL Cholesterol 37(L) >40 mg/dL [facility] Comment:Desirable HDL: great er than 40 mg/dL Note: This HDL assay may give artificially low results in patients with liver disease. Blood Venous blood specimen / Unknown 10/28/2024 10:35 AM EDT 10/28/2024 12:29 PM EDT us Randa Godinez DO LAB BLOOD ORDERABLES Final R esult [facility] [address] [place] [address] [phone] * (ABNORMAL) Comprehensive Metabolic Panel (10/28/2024 10:35 AM EDT) Sodium 140 135 - 145 mmol/L [facility] Potassium 4.1 3.3 - 5.1 mmol/L [facility] Chloride 104 96 - 108 mmol/L [facility] Carbon Dioxide 28 22 - 29 mmol/L [facility] Anion Gap 12 12 - 20 [facility] Urea Nitrogen (BUN) 15 9 - 16 mg/dL [facility] Creatinine, Serum 0.73 0.5 - 1.4 mg/dL [facility] Estimated Glomerular Filt Rate >60 [facility] Comment:Chronic Kidney Disea se: Estimated GFR < 60 mL/min/1.36l5Qtonlf Kidney Disease: Estimated GFR < 15 mL/min/1.73m2 Glucose 103 60 - 115 mg/dL [facility] Calcium 9.1 8.4 - 10.2 mg/dL [facility] Bilirubin, Total 0.5 0.0 - 1.0 mg/dL [facility] Aspartate Amino Transferase 56(H) 5 - 37 U/L [facility] Alanine Aminotransferase 51(H) 0 - 40 U/L [facility] Total Protein 7.6 6.5 - 8.0 g/dL [facility] Albumin Level 4.5 3.5 - 5.0 g/dL [facility] Alkaline Phosphatase 73 39 - 117 U/L [facility] 10/28/2024 10:3 5 AM EDT 10/28/2024 12:29 PM EDT us Generic External Data Provider LAB BLOOD ORDERAB LES Final Result [facility] [address] [place] [phone] from Last 3 Months Insurance [facility] [address] [place] [phone] [facility] Care Teams Metallurgical Or Materials Technician Relationship Specialty Start Date End Date Randa Godinez DO [address] [place] [phone] PCP - General Family Medicine 09/25/13
--- OUTSIDE RECORDS SUMMARY | 2025-01-21 18:30 | XMS_ITS | Encounter Summary ---
Author Organization [employer] [facility] Address [address] [place] [address] 7 [place] [address] Care Team Providers Care Automatic Brine Mixer Operator Name Role Phone Randa Godinez DO Primary Care Provider + [phone] Reason for Visit * Reason Comments Med Refill Encounter Details Date Type Department Care Team (Late st Contact Info) Description 10/21/2022 Refill [facility] MED[facility]INE [address] [place] [phone] Randa Godinez DO [address] [place] [address] Depressive disorder Social History Tobacco Use Types Packs/Day Years Used Date Smoking Tobacco: Every Day Cigarettes Sex and Gender Information Value Date Recorded [...] Description 02/25/2025 2:00 PM EST Office Visit [facility] [address] [place] [phone] Rebeca Gonzales MD [address] [place] [address] [phone] documented as of this encounter Visit Diagnoses Diagnosis Depressive disorder Depressive disorder, not elsewhere classified documented in this encounter Additional Health Concerns Assessment Noted Time PHQ-9 Depression Total Score: 5 07/10/19 23 12:06 PM EDT documented as of this encounter Care Teams Automatic Brine Mixer Operator Relationship Specialty Start Date End Date Randa Godinez DO [address] [place] [address] PCP - General Family Medicine 09/25/13 documented as of this encounter
--- OUTSIDE RECORDS SUMMARY | 2025-01-21 18:30 | XMS_ITS | Encounter Summary ---
Author Organization [employer] Address 75 [facility] 7 [place] [address] Care Team Providers Care Repairer Cylinder Heads Name Role Phone Randa Godinez DO Primary Care Provider + [phone] Reason for Visit * Reason Onset Date Comments Med Refill 08/28/2024 Encounter Details Date Type Department Care Team ([facility] st Contact Info) Description 08/28/2024 Refill [facility] MED[facility]INE [address] [place] [address] Randa Godinez DO [address] [place] [address] Depressive disorder Social History Tobacco Use Types [...] Description 02/25/2025 2:00 PM EST Office Visit [facility] MED[facility]INE [address] [place] [address] Rebeca Gonzales MD 230 [place] [address] documented as of this encounter Goals Goal [...] documented as of this encounter Care Teams Repairer Cylinder Heads Relationship Specialty Start Date End Date Randa Godinez DO [address] [place] [address] PCP - General Family Medicine 09/25/13 documented as of this encounter
--- OUTSIDE RECORDS SUMMARY | 2025-01-21 18:30 | XMS_ITS | Clinical Summary ---
Author Organization [facility] Address [address] [place] [address] Care Team Providers Care Pilling Machine Operator Name Role Phone Unavailable Primary Care Provider [...] 12/01/2015 Zoster Vaccines (1 of 2) 12/01/2015 Depression Screening 03/11/2024 COVID-19 Vaccine (1 - 2024-2 6 season) 2024 Influenza Vaccine (#1) 2024 RSV Immunization Adult Patie nts (1 - 1-dose 75+ series) 2040 HIB Vaccines Aged Out No longer eligi [...]
--- OUTSIDE RECORDS SUMMARY | 2025-01-21 18:30 | XMS_ITS | Encounter Summary ---
Author Organization [employer] Address 75 [facility] 7t [place] [address] Care Team Providers Care Fire Inspector Name Role Phone Randa Godinez DO Primary Care Provider + [phone] Encounter Details Date Type Department Care Team ([facility] st Contact Info) Description 01/05/2025 Orders Only [facility] MEDICINE 230 [place] [address] Randa Godinez DO 230 [place] [address] Social History Tobacco Use Types Packs/Day Years [...] is your housing situation today? I have aoln bruce 10/20/[address] you [...] Description 02/25/2025 2:00 PM EST Office Visit [facility] MEDICINE [address] [place] [address] Rebeca Gonzales MD 230 [place] [address] documented as of this encounter Goals Goal Patient Goal Type Associated Problems Recent Progress Patient-Stated? Author Reduce tobacco use (cigarettes, smokeless, etc) Tobacco Use Improving(10/10 3:25 PM EDT) No Cheo Rucker, RN documented as of this encounter Visit Diagnoses Not on filedocumented in this encounter Additional Health Concerns Assessment Noted Time PHQ-9 Depression Total Score: 16 025 1:55 PM EDT documented as of this encounter Care Teams Fire Inspector Relationship Specialty Start Date End Date Randa Godinez DO 230 [place] [address] PCP - General Family Medicine 09/25/13 documented as of this encounter
--- OUTSIDE RECORDS SUMMARY | 2025-01-21 18:30 | XMS_ITS | Encounter Summary ---
Author Organization [employer] Address 75 [facility] 7t [place] [address] Care Team Providers Care Vp Platforms Name Role Phone Randa Godinez DO Primary Care Provider + [phone] Reason for Visit * Reason Onset Date Comments Med Refill 02/11/2024 Encounter Details Date Type Department Care Team (Late st Contact Info) Description 02/11/2024 Refill [facility] P[facility] [address] [place], [place] [phone] Randa Godinez DO [address] [place] [address] Vitamin D deficiency Social History Tobacco Use [...] Description 02/25/2025 2:00 PM EST Office Visit [facility] MEDICINE 230 [place] [address] Rebeca Gonzales MD 230 [place] [address] documented as of this encounter Visit Diagnoses Diagnosis Vitamin D deficiency documented in this encounter Additional Health Concerns Assessment Noted Time PHQ-9 Depression Total Score: 10 023 10:23 AM EDT documented as of this encounter Care Teams Vp Platforms Relationship Specialty Start Date End Date Randa Godinez DO 230 [place] [address] PCP - General Family Medicine 09/25/13 documented as of this encounter
--- OUTSIDE RECORDS SUMMARY | 2025-01-21 18:30 | XMS_ITS | Encounter Summary ---
Author Organization [employer] Address [address] [place] [address] 7t [place] [address] Care Team Providers Care Wastewater Plant Operator Name Role Phone Randa Godinez Primary Care Provider + [phone] Reason for Visit * Reason Onset Date Comments Med Refill 06/01/2024 Encounter Details Date Type Department Care Team ([facility] st Contact Info) Description 06/01/2024 Refill [facility] MEDICINE [address] [place] [address] Rebeca Gonzales MD [address] [place] [address] Social History Tobacco Use Types Packs/Day Years [...] Description 02/25/2025 2:00 PM EST Office Visit [facility] MED[facility]INE [address] [place] [phone] Rebeca Gonzales MD [address] [place] [address] documented as of this encounter Goals Goal [...] documented as of this encounter Care Teams Wastewater Plant Operator Relationship Specialty Start Date End Date Randa Godinez DO [address] [place] [address] PCP - General Family Medicine 09/25/13 documented as of this encounter
--- OUTSIDE RECORDS SUMMARY | 2025-01-21 18:30 | XMS_ITS | Encounter Summary ---
Author Organization [employer] Address 75 [facility] 7 [place] [address] Care Team Providers Care Case Sealer Name Role Phone Randa Godinez DO Primary Care Provider + [phone] Reason for Visit * Reason Onset Date Comments Med Refill 09/24/2024 Encounter Details Date Type Department Care Team ([facility] st Contact Info) Description 09/24/2024 Refill [facility] MEDICINE 230 [place], [place] [phone] Randa Godinez DO 230 [place] [address] Social History Tobacco Use Types Packs/Day Years [...] Description 02/25/2025 2:00 PM EST Office Visit [facility] MEDICINE [address] [place] [address] Rebeca Gonzales MD 230 [place] [address] documented as of this encounter Goals Goal [...] documented as of this encounter Care Teams Case Sealer Relationship Specialty Start Date End Date Randa Godinez DO [address] [place] [address] PCP - General Family Medicine 09/25/13 documented as of this encounter
--- OUTSIDE RECORDS SUMMARY | 2025-01-21 18:30 | XMS_ITS | Encounter Summary ---
Author Organization [employer] Address 75 [facility] 7 [place] [address] Care Team Providers Care Machine Umbrella Tipper Name Role Phone Randa Godinez DO Primary Care Provider + [phone] Reason for Visit * Reason Onset Date Comments Med Refill 11/27/2024 Encounter Details Date Type Department Care Team ([facility] st Contact Info) Description 11/27/2024 Refill [facility] MEDICINE [address] [place] [address] Randa Godinez DO [address] [place] [address] Social History Tobacco Use Types Packs/Day Years [...] EST Office Visit [facility] MEDICINE [address] [place] [address] Rebeca Gonzales MD 230 [place] [address] documented as of this encounter Goals Goal [...] documented as of this encounter Care Teams Machine Umbrella Tipper Relationship Specialty Start Date End Date Randa Godinez DO [address] [place] [address] PCP - General Family Medicine 09/25/13 documented as of this encounter
--- OUTSIDE RECORDS SUMMARY | 2025-01-21 18:30 | XMS_ITS | Encounter Summary ---
Author Organization [employer] Address [address] [place] [address] 7t [place] [address] Care Team Providers Care Nissan Sales Consultant Name Role Phone Randa Godinez Primary Care Provider + [phone] Reason for Visit * Reason Onset Date Comments Med Refill 08/28/2024 Encounter Details Date Type Department Care Team ([facility] st Contact Info) Description 08/28/2024 Refill [facility] MEDICINE [address] [place] [address] Rebeca Gonzales MD 230 [place] [address] Social History Tobacco Use Types Packs/Day Years [...] Description 02/25/2025 2:00 PM EST Office Visit [facility] MEDICINE [address] [place] [address] Rebeca Gonzales MD 230 [place] [address] documented as of this encounter Goals Goal [...] documented as of this encounter Care Teams Nissan Sales Consultant Relationship Specialty Start Date End Date Randa Godinez DO [address] [place] [address] PCP - General Family Medicine 09/25/13 documented as of this encounter
--- OUTSIDE RECORDS SUMMARY | 2025-01-21 18:30 | XMS_ITS | Encounter Summary ---
Author Organization [employer] Address [address] [facility] 7t [place] [address] Care Team Providers Care Side Framer Name Role Phone Randa Godinez DO Primary Care Provider + [phone] Encounter Details Date Type Department Care Team ([facility] st Contact Info) Description 12/19/2023 Telephone [facility] MEDICINE [address] [place] [address] Randa Godinez DO [address] [place] [address] Social History Tobacco Use Types Packs/Day Years [...] AM EDT documented as of this encounter Miscellaneous Notes * Telephone Encounter - Fela Morales - 12/19/2023 11:19 AM EDT Tc from pt returning call. documented in this encounter Plan of Treatment Upcoming Encounters Date Type Department Care Team (Late st Contact Info) Description 02/25/2025 2:00 PM EST Office Visit [facility] MED[facility]INE [address] [place] [address] Rebeca Gonzales MD [address] [place] [address] documented as of this encounter Visit Diagnoses Not on filedocumented in this encounter Additional Health Concerns Assessment Noted Time PHQ-9 Depression Total Score: 10 023 10:23 AM EDT documented as of this encounter Care Teams Side Framer Relationship Specialty Start Date End Date Randa Godinez DO [address] [place] [address] PCP - General Family Medicine 09/25/13 documented as of this encounter
--- OUTSIDE RECORDS SUMMARY | 2025-01-21 18:30 | XMS_ITS | Encounter Summary ---
Author Organization [employer] Address 75 [facility] 7 [place] [address] Care Team Providers Care Vice President Underwriting Name Role Phone Randa Godinez DO Primary Care Provider + [phone] Reason for Visit * Reason Onset Date Comments Med Refill 08/28/2024 Encounter Details Date Type Department Care Team ([facility] st Contact Info) Description 08/28/2024 Refill [facility] MEDICINE 230 [place], [place] [phone] Randa Godinez DO [address] [place] [address] Social History Tobacco Use Types Packs/Day Years [...] Description 02/25/2025 2:00 PM EST Office Visit [facility] MEDICINE [address] [place] [phone] Rebeca Gonzales MD [address] [place] [address] documented as of this encounter Goals Goal [...] documented as of this encounter Care Teams Vice President Underwriting Relationship Specialty Start Date End Date Randa Godinez DO [address] [place] [address] PCP - General Family Medicine 09/25/13 documented as of this encounter
--- OUTSIDE RECORDS SUMMARY | 2025-01-21 18:30 | XMS_ITS | Encounter Summary ---
Author Organization [employer] Address 75 [facility] 7t [place] [address] Care Team Providers Care Ball Truing Machine Operator Name Role Phone Randa Godinez DO Primary Care Provider + [phone] Reason for Visit * Reason Comments Med Refill Encounter Details Date Type Department Care Team (Late st Contact Info) Description 12/09/2023 Refill [facility] MEDICINE [address] [place], [place] [phone] Randa Godinez DO [address] [place] [address] Depressive disorder Social History Tobacco Use Types [...] Description 02/25/2025 2:00 PM EST Office Visit [facility] MEDICINE [address] [place] [address] Rebeca Gonzales MD [address] [place] [address] documented as of this encounter Visit Diagnoses Diagnosis Depressive disorder Depressive disorder, not elsewhere classified documented in this encounter Additional Health Concerns Assessment Noted Time PHQ-9 Depression Total Score: 10 023 10:23 AM EDT documented as of this encounter Care Teams Ball Truing Machine Operator Relationship Specialty Start Date End Date Randa Godinez DO 230 [place] [address] PCP - General Family Medicine 09/25/13 documented as of this encounter
--- OUTSIDE RECORDS SUMMARY | 2025-01-21 18:30 | XMS_ITS | Encounter Summary ---
Author Organization [employer] Address 75 [facility] 7 [place] [address] Care Team Providers Care An/Ssn 2 4 Operator Name Role Phone Randa Godinez DO Primary Care Provider + [phone] Reason for Visit * Reason Onset Date Comments Med Refill 12/01/2023 Encounter Details Date Type Department Care Team (Late st Contact Info) Description 12/01/2023 Refill [facility] MEDICINE 230 [place] [address] Randa Godinez DO 230 [place] [address] Depressive disorder Social History Tobacco Use Types [...] Description 02/25/2025 2:00 PM EST Office Visit [facility] MEDICINE [address] [place] [address] Rebeca Gonzales MD [address] [place] [address] documented as of this encounter Visit Diagnoses Diagnosis Depressive disorder Depressive disorder, not elsewhere classified documented in this encounter Additional Health Concerns Assessment Noted Time PHQ-9 Depression Total Score: 10 023 10:23 AM EDT documented as of this encounter Care Teams An/Ssn 2 4 Operator Relationship Specialty Start Date End Date Randa Godinez DO [address] [place] [address] PCP - General Family Medicine 09/25/13 documented as of this encounter
--- OUTSIDE RECORDS SUMMARY | 2025-01-21 18:30 | XMS_ITS | Encounter Summary ---
Author Organization [employer] Address [address] [place] [address] 7 [place] [address] Care Team Providers Care Group Director Name Role Phone Randa Godinez DO Primary Care Provider + [phone] Reason for Visit * Reason Onset Date Comments Med Refill 02/11/2024 Encounter Details Date Type Department Care Team ([facility] st Contact Info) Description 02/11/2024 Refill [facility] MEDICINE [address] [place], [place] [phone] Randa Godinez DO [address] [place] [address] Social History Tobacco Use Types Packs/Day Years [...] Description 02/25/2025 2:00 PM EST Office Visit [facility] MEDICINE [address] [place] [address] Rebeca Gonzales MD 230 [place] [address] documented as of this encounter Visit Diagnoses Not on filedocumented in this encounter Additional Health Concerns Assessment Noted Time PHQ-9 Depression Total Score: 10 023 10:23 AM EDT documented as of this encounter Care Teams Group Director Relationship Specialty Start Date End Date Randa Godinez DO [address] [place] [address] PCP - General Family Medicine 09/25/13 documented as of this encounter
== END 2025-01-21 15:52 | disposition home or self-care (01) ==
LOC: HO.HGS 15:20
PROVIDERS: PCP Family Medicine; Visit Provider Surgery
DX: M62.08 Separation of muscle (nontraumatic), other site (principal)
CPT/HCPCS: 99203

== ENCOUNTER → 2025-01-21 15:19 | Outpatient (BNVA) | payer OTHER, SELFPAY | PROVIDERS: PCP Family Medicine; Visit Provider Surgery | DX: M62.08 Separation of muscle (nontraumatic), other site (principal) | CPT/HCPCS: 99202 ==